=== PATIENT | male | born 1940 | race Caucasian/White ===

== ENCOUNTER 2017-09-06 11:15 | Outpatient (RCR) | payer MEDICARE ==
[2017-02-05 16:51] VITALS: BMI 24.5
--- NOTE | 2017-06-11 15:28 | PT INITIAL EVALUATION ---
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 On 02/05/17, his reports that he was admitted to the hospital in ICU for 10 days to treat severe pneumonia along with dehydration and a few other things. Following the ICU, he was transported to [place], [place] to [facility] for approximately 48 days. Then, he was discharged back to home and received home health care from April 04, 2017 to June 03, 2017. His reports that he did well in [place] and they focused on returning Ian to [facility] along with strength, balance, and gait. She reports that it is difficult for him to get in and out of bed especially if he does not bend his R LE. She also reports that she is having him sit around the dinner table for all meals. She also reports that he has been complaining of his chest hurting when swallowing. Other than that, he denies any pain. REHAB PROBLEM LIST: Impaired Cognition Decreased ROM Impaired Bed Mobility Decreased Strength Impaired Transfers Decreased Endurance Decreased Balance Decreased Function Decreased ADL's Decreased Mobility Decreased Gait PREVIOUS MEDICAL HISTORY: See chart OCCUPATION: Retired OBJECTIVE: ROM: AROM of R hip flexion, abduction, adduction, extension, R knee flexion and extension, and R ankle PF/DF: unable to move through any ROM. AROM of L side : WNL's. Strength: R hip flexion, abduction, adduction, extension, R knee flexion and extension (2/5), and R ankle PF/DF: 1/5 (felt contraction). AROM of L hip flexion, abduction, adduction, extension, L knee flexion and extension, and L ankle PF/DF: 4+/5 with no pain. Sensation: Impaired on R LE: L1-S2. WNL's on L LE (L1-S2). Special Tests: AM-PAC Medicare Outpatient Basic Mobility Form with wheel chair: 91.9% impaired. Lower extremity functional scale: : 78% impairment. Mobility: Bed mobility: Unable to perform sitting to R sidelying. Independent with sitting to L sidelying. Independent from L sidelying to supine position. Terrence X 1 from supine position to R sidelying position. MaxA X 1 from supine position to L sidelying position. Independent from L sidelying position to sitting at edge of mat. Able to sit at edge of mat without any difficulties; however, he utilizes his L UE for support. Mod-MaxA with stand pivot transfer from wheelchair to/from bench. Terrence X 1 with sit to/from standing. MaxA X 1 at R knee to prevent increased knee flexion so that he would collapse or R knee hyperextension while performing weight shifts to R LE. Sit to/from standing: Terrence to modA with sitting to standing along with L UE support and independent with standing to sitting. Gait: Unable at this point: will perform pre-gait activities and then progress his gait with forarm walker. ASSESSMENT: Ian Goetz will benefit from skilled physical therapy addressing the listed impairments to improve his function and QOL. . Short Term Goals 4 weeks: Pt will be able to perform pre-gait activities with forarm walker and modA X 1 to improve function and QOL. 8 weeks: Pt will be able to perform pre-gait activities with forarm walker and Terrence x 1 to improve function and QOL. 12 weeks: Pt will be able to perform pre-gait activities with forarm walker and Calos to improve function and QOL. 12 weeks: Pt will be able to improve AM-PAC from 92% impairment to less than 59 % impairment to improve function and QOL. 12 weeks: Pt will be able to ambulate 150 feet or more with forarm walker and CGA to improve function and QOL. Patient's Goals more independent with transfers and ambulating better with toni-walker so that they can get out of the house and enjoy [place] PLAN: Patient to be seen for Strengthening/condition Range of Motion Spinal Stabilization Work Hardening/Cond Stretching Neuromuscular Re-ed Closed Chain Program Electrical Stim Gait Trg/Balance Trg Biofeedback Home Exercise Program Therapeutic Activities 2x/Week for 4 month If you have any questions, comments, or concerns about this report or plan, please contact me at . Thank you, Rodolfo Keller, PT, DPT MTDD
--- NOTE | 2017-06-14 12:13 | SWALLOW EVALUATION ---
INITIAL SPEECH THERAPY EVALUATION REPORT Patient Name: Ian Goetz Date of Evaluation: 06-11-2017 and 06-13-2017 Patient : 1940 Clinician: Joy Mancini M.S., [facility]-PERSONNEL REPRESENTATIVE, [facility] Student Treatment Dx: Dysarthric (flaccid) Motor Speech Deficit BACKGROUND The patient is a 77 year old male who experienced a stroke on Aug 26 2015. He is wheelchair bound. He lives at home with his spouse. Mr. Goetz has severely reduced expressive verbal language. The patients primary modalities of communication are mostly indistinguishable vocalizations assisted by attempts at verbal interpretation of his intent by his . The patient does gesture yes/no with head nods but responses are inconsistent. Mr. Goetz produces primarily vowels and some consonants. LANGUAGE Receptive Language: Mr. Goetz was evaluated for receptive language through directive tasks. He responded appropriately to clinician directions and questions given adequate wait time and repetitions throughout the assessment. Patient responses were either correct response to a question (e.g., show me which icon you would point to if you needed the bathroom) or one-word vocalizations (e.g., yes). Reading is largely functional at short phrase with min assist. Expressive Language: Mr. Goetz has severely limited verbal expression. He can produce yes/no with a gesture and verbal model. He is able to indicate wants and needs through the use of a picture communication board. Mr. Goetz can write short words. Limited written communication. He identified letters with 63% accuracy and minimal to moderate clinician support. The clinician limited visual stimuli by showing only one row of letters (8 letters) at a time and gave a phonemic cue with an example (e.g., b as in boy). Speech Mr. Goetz was evaluated for speech using informal tasks. He was able to produce speech at the word level, but required maximum clinician support (e.g., phonemic cueing, multiple repetitions, and articulatory placement directions). Severe flaccid dysarthria reduces intelligible speech. The patient produces primarily vowel sounds but distorted consonant sounds can be heard in single word productions. Pt is responsive to phonetic placement cues but oral motor deficits reduce accuracy. Vowels: Mild deficits with more accuracy with long vowels over short in isolation Consonants: Largely nonfunctional in isolation. Intermittent distorted consonants in single words can be heard and assist with communication of the target. COGNITION Mr. Goetz was given a heavily modified version of the [place] Cognitive Assessment (MOCA) to compensate for severe speech and language deficits. Serial subtraction task and Language tasks were not assessed due to severe expressive language deficits. Cognitive Domains Demonstrating Deficits: attention, delayed recall, visuospatial Cognitive Domains Demonstrating Strength: immediate recall, naming, orientation , abstraction Cognitive- Linguistic deficits impact swallow function/safety, or response to therapy: No Functional Communication Deficits: The patient presents with cognitive linguistic deficits that reduce functional communication in the home and community, reducing safety and independence. Family and patient agree that the patient participation in everyday communicative tasks is limited. Response time is extended, reducing communicative effectiveness. ORAL MOTOR Mr. Goetz was given an oral motor examination. He completed all tasks with minimal to moderate clinician support (i.e., repetition of directions, wait time and model). Right labial asymmetry was present on the smile and pucker tasks, and loss of air was present on the cheek puff task. ORAL: Smile 2/5 Lip Pucker 2/5 Puff out cheeks 2/5 6/15 LINGUAL: Tongue from side to side 4/5 Stick out tongue 3/5 Make tongue touch chin 4/5 Make tongue touch nose 3/5 14/20 Overall impression: Moderate to severe oral motor deficits DYSPHAGIA: Patient had an MBS on . Pt showed s/s of oropharyngeal dysphagia. He is on a LISETH with liquids limited to small bolus size. SUMMARY All modes of functional communication are severely reduced including, written, reading, speech, gestural. Severe dysarthric (flaccid) speech with vowels and consonants reduce functional communication. Communicative strengths at this time are reading and picture identification. Patient demonstrates cognitive skills at a significantly higher level of function than communication. RECOMMENDATIONS 1. ST 2x/12wk PROGNOSIS: Good. Patient has good family support. PLAN OF CARE Short Term Goals 1. Patient will receive education regarding safe swallow precautions, diet modification, and compensatory techniques and provide demonstration of comprehension using an AAC device. 2. The patient will participate in an 8wk dysphagia exercise based therapy program to address oropharyngeal dysphagia. 3. Pt will independently identify letters on an alphabet board with 80% accuracy for functional communication. 4. Pt will initiate communication using an AAC device with familiar communication partners in 8/10 opportunities with minimal clinician support ( e.g., verbal prompt or question). [facility] Goals The patient will use safe swallow precautions and compensatory techniques to decrease incidents of aspiration. Thank you for this referral. Please call [phone] Joy Mancini M.S., CCC-PERSONNEL REPRESENTATIVE Physician Signature Date MTDD
--- NOTE | 2017-07-17 17:28 | PT PLAN OF CARE ---
Physician: Nikita Caraballo MD Patient is being seen: 2x/week Therapist:Rodolfo Keller, PT, DPT Medical Diagnosis: Post CVA Weakness Treatment Diagnosis: same Date of Onset: Date of Initial Evaluation: 06/11/17 Date patient was last seen: 07/16/17 Number of treatments: 10 Number of cancellations/No shows: 0 INTERVENTIONS: Patient to be seen for Strengthening/condition Range of Motion Spinal Stabilization Work Hardening/Cond Stretching Neuromuscular Re-ed Closed Chain Program Electrical Stim Gait Trg/Balance Trg Biofeedback Home Exercise Program Therapeutic Activities GOALS: Short Term Goals 4 weeks: Pt will be able to perform pre-gait activities with forarm walker and modA X 1 to improve function and QOL. 8 weeks: Pt will be able to perform pre-gait activities with forarm walker and Terrence x 1 to improve function and QOL. 12 weeks: Pt will be able to perform pre-gait activities with forarm walker and Calos to improve function and QOL. 12 weeks: Pt will be able to improve AM-PAC from 92% impairment to less than 59 % impairment to improve function and QOL. 12 weeks: Pt will be able to ambulate 150 feet or more with forarm walker and CGA to improve function and QOL. PATIENT'S GOAL: more independent with transfers and ambulating better with toni-walker so that they can get out of the house and enjoy [place] Status of Patient's Goals: Progressing slowly Patient Compliance: Good Prognosis: Fair Reasons for continuing therapy: This is a progress note for Ian Goetz. He denies any pain and states that he is doing well. He has progressed well with improved sit to/from standing with decreased B UE support. We were able to transition from pre-gait exercise with good midline to ambulating with and without L UE support while maintaining good midline. He continues to require moderate verbal cues to maintain midline especially with L UE support during ambulation. With gait, he continues to demonstrate a lack of R LE weightbearing which results in decreased L step length, decreased R weight shift, and decreased balance. We will continue to improve midline body position during gait , improve gait mechanics, improve balance, and continue to increase R LE weight bearing. OBJECTIVE: ROM: AROM of R hip flexion, abduction, adduction, extension, R knee flexion and extension, and R ankle PF/DF: unable to move through any ROM. AROM of L side : WNL's. Strength: R hip flexion, abduction, adduction, extension, R knee flexion and extension (2/5), and R ankle PF/DF: 1/5 (felt contraction). AROM of L hip flexion, abduction, adduction, extension, L knee flexion and extension, and L ankle PF/DF: 4+/5 with no pain. Sensation: Impaired on R LE: L1-S2. WNL's on L LE (L1-S2). Special Tests: AM-PAC Medicare Outpatient Basic Mobility Form with wheel chair: 81% impaired. Lower extremity functional scale: : 78% impairment. Mobility: Bed mobility: Unable to perform sitting to R sidelying. Independent with sitting to L sidelying. Independent from L sidelying to supine position. Terrence X 1 from supine position to R sidelying position. MaxA X 1 from supine position to L sidelying position. Independent from L sidelying position to sitting at edge of mat. Able to sit at edge of mat without any difficulties; however, he utilizes his L UE for support. Mod-MaxA with stand pivot transfer from wheelchair to/from bench. Terrence X 1 with sit to/from standing. MaxA X 1 at R knee to prevent increased knee flexion so that he would collapse or R knee hyperextension while performing weight shifts to R LE. Sit to/from standing: Terrence to modA with sitting to standing along with L UE support and independent with standing to sitting. Gait: With gait, he continues to demonstrate a lack of R LE weightbearing which results in decreased L step length, decreased R weight shift, and decreased balance. If you have any questions, comments, or concerns about this report or plan, please contact me at . Thank you, Rodolfo Keller, PT, DPT MTDD
--- NOTE | 2017-07-30 18:19 | SLP PLAN OF CARE ---
SPEECH PATHOLOGY 10th Visit Report Physician: Nikita Caraballo MD Date:07-16-17 Clinician: Joy Mancini M.S., CCC-HEAVY EQUIPMENT OPERATOR APPRENTICE Patient: Ian Goetz : 1940 The patient attends [address] at [facility] 2/wk for a total of 10 Visits. His brings him to all appointments. She reports working with the patient at home on established home program tasks to support carryover. The patient continues to appear in general good health. CURRENT GOALS 1. Pt will initiate communication using an AAC device with familiar communication partners in 8/10 opportunities with minimal clinician support (e.g., verbal prompt or question). 2. Pt will spell high frequency words with at least two syllables at 9/10 and min assist (visual field reduction). 3. The patient will participate in an 8wk dysphagia exercise based therapy program to address oropharyngeal dysphagia. 4. To address receptive language deficits, the patient will identify t/f statements using AAC at 90% and min assist (up to 2 repetitions) Goals Met 1. Patient will receive education regarding safe swallow precautions, diet modification, and compensatory techniques and provide demonstration of comprehension using an AAC device. 2. Pt will independently identify letters on an alphabet board with 80% accuracy for functional communication. SUMMARY He's making excellent progress with functional communication using low tech alternative communication modes . The patients initial letter identification given a verbal model of a target word has improved to average of 90% . Initiation continues to be addressed with patient encouraged to communicate using maps, letter boards, picture boards, gestures and any mode of communication available. He has demonstrated some improvement with initiation including making selections from multiple choice options and performing tasks with reduced step by step instruction. Spouse reports mild dysphagia symptoms persists. She is following precautionary recommendations as instructed. Dysphagia is addressed during tx with focus on respiratory support and coordination with expiratory/inspiratory muscle strength training and vocal exercises. The above POC has been modified to represent patient progress with ST. RECOMMENDATION Patient would benefit from continued ST to address above POC at 2wk12 Thank you for referring this patient to [facility], Speech- Language Pathology. Please call [phone] to contact the HEAVY EQUIPMENT OPERATOR APPRENTICE. Respectfully, Joy Mancini M.S., CCC-HEAVY EQUIPMENT OPERATOR APPRENTICE Physician Signature Date MTDD
--- NOTE | 2017-08-20 15:12 | PT PLAN OF CARE ---
Physician: Nikita Caraballo MD Patient is being seen: 2x/week Therapist: Rodolfo Keller, PT, DPT Medical Diagnosis: Post CVA Weakness Treatment Diagnosis: same Date of Onset: Date of Initial Evaluation: 06/11/17 Date patient was last seen: 08/20/17 Number of treatments: 20 Number of cancellations/No shows: 0 INTERVENTIONS: Patient to be seen for Strengthening/condition Range of Motion Spinal Stabilization Work Hardening/Cond Stretching Neuromuscular Re-ed Closed Chain Program Electrical Stim Gait Trg/Balance Trg Biofeedback Home Exercise Program Therapeutic Activities GOALS: Short Term Goals 4 weeks: Pt will be able to perform pre-gait activities with forarm walker and modA X 1 to improve function and QOL. MET 8 weeks: Pt will be able to perform pre-gait activities with forarm walker and Terrence x 1 to improve function and QOL. MET 12 weeks: Pt will be able to perform pre-gait activities with forarm walker and Calos to improve function and QOL. MET 12 weeks: Pt will be able to improve AM-PAC from 92% impairment to less than 59 % impairment to improve function and QOL. NOT MET 12 weeks: Pt will be able to ambulate 150 feet or more with forarm walker and CGA to improve function and QOL. Not Met PATIENT'S GOAL: more independent with transfers and ambulating better with toni-walker so that they can get out of the house and enjoy [place] Status of Patient's Goals: Progressing Patient Compliance: Good Prognosis: Fair Reasons for continuing therapy: This is a progress note for Ian Goetz. He denies any pain and states that he is doing well. He progressed well with pre- gait exercises that we are transitioning from pre-gait exercises to FWW with platform. With the FWW with platform, he demonstrated maxA to lift R UE into platform and supervision to Terrence during ambulation. Furthermore, he demonstrated normal step lengths, increased R LE weight bearing, increased function and decreased support, however, he demonstrated decreased endurance. Furthermore, he demonstrates CGA to Terrence with sit to/from standing transfers. With the FWW with platform, we hope to get to the point that he and his are comfortable ambulating around the house with decreased fear of falling, which I think is possible. OBJECTIVE: ROM: AROM of R hip flexion, abduction, adduction, extension, R knee flexion and extension, and R ankle PF/DF: unable to move through any ROM. AROM of L side : WNL's. Strength: R hip flexion, abduction, adduction, extension, R knee flexion and extension (2/5), and R ankle PF/DF: 1/5 (felt contraction). AROM of L hip flexion, abduction, adduction, extension, L knee flexion and extension, and L ankle PF/DF: 4+/5 with no pain. Sensation: Impaired on R LE: L1-S2. WNL's on L LE (L1-S2). Special Tests: AM-PAC Medicare Outpatient Basic Mobility Form with wheel chair: 81% impaired. Lower extremity functional scale: : 78% impairment. Mobility: Bed mobility: Unable to perform sitting to R sidelying. Independent with sitting to L sidelying. Independent from L sidelying to supine position. Terrence X 1 from supine position to R sidelying position. MaxA X 1 from supine position to L sidelying position. Independent from L sidelying position to sitting at edge of mat. Able to sit at edge of mat without any difficulties; however, he utilizes his L UE for support. Mod-MaxA with stand pivot transfer from wheelchair to/from bench. Terrence X 1 with sit to/from standing. MaxA X 1 at R knee to prevent increased knee flexion so that he would collapse or R knee hyperextension while performing weight shifts to R LE. Sit to/from standing: Terrence to modA with sitting to standing along with L UE support and independent with standing to sitting. Gait: With gait, he continues to demonstrate a lack of R LE weightbearing which results in decreased L step length, decreased R weight shift, and decreased balance. If you have any questions, comments, or concerns about this report or plan, please contact me at . Thank you, Rodolfo Keller, PT, DPT MTDBrandee
--- NOTE | 2017-09-05 11:26 | SLP PLAN OF CARE ---
SPEECH PATHOLOGY 10th Visit Report Physician: Nikita Caraballo MD Date:08-23-17 Clinician: Joy Mancini M.S., CCC-CAMERA TUNING ENGINEER Patient: Ian Goetz : 1940 The patient attends [address] at [facility] 2/wk for a total of 10 Visits. His spouse brings him to all appointments. She reports working with the patient at home on established home program tasks to support carryover. The patient continues to appear in general good health. CURRENT GOALS 1. Pt will initiate communication using an AAC device with familiar communication partners in 8/10 opportunities with minimal clinician support (e.g., verbal prompt or question). 2. Pt will spell high frequency words with at least two syllables at 9/10 and min assist (visual field reduction). 3. To address receptive language deficits, the patient will identify t/f statements using AAC at 90% and min assist (up to 2 repetitions) 4.The patient will perform voice quality exercises to improve respiratory support for speech and verbal communication. DC GOAL 1. The patient will participate in an 8wk dysphagia exercise based therapy program to address oropharyngeal dysphagia. Goal Met: Pt has completed program. His spouse continues to perform home program exercises. She reports symptoms have improved. It is recommended pt continue with nectar thickened liquids. Pt reports compliance with this recommendation is intermittent SUMMARY Pt continues to make progress with functional communication using low tech alternative communication modes . The patients initial letter identification given a verbal model of a target word is maintained at approx. 90% . He independently used communication board to communicate "Happy" in response to direct questions of how his [place] was. Initiation continues to be addressed with patient encouraged to communicate using maps, letter boards, picture boards, gestures and any mode of communication available. Pt has completed the dysphagia program. His spouse continues to perform home program exercises. She reports symptoms have improved. It is recommended pt continue with nectar thickened liquids. Pt reports compliance with this recommendation is intermittent. The above POC has been modified to represent patient progress with ST. RECOMMENDATION Patient would benefit from continued ST to address above POC at 2wk12 Thank you for referring this patient to [facility], Speech- Language Pathology. Please call [phone] to contact the CAMERA TUNING ENGINEER. Respectfully, Joy Mancini M.S., CCC-CAMERA TUNING ENGINEER Physician Signature Date MTDD
[~2017-09-06 11:15] MED LIST: AMLO2.5T75 PO; ASPI-757 FT; ASPI-757 PO; ATOR10TA24 PO; DOCU100C49 PO; ENOX40DI8 SC; FERR220S20 FT; FLUO-201 PO; Hydrogen Peroxide TP; INSU100I30 SUBQ; INSU100V24 SUBQ; IPRA3AMP21 NEB; LEVO100V IVP; LEVO25TA57 PO; METH5TAB85 PO; MOM PO; TAMS0.4C25 PO; VITA1CAP46 PO; [UNRECOGNIZED DRUG - CODE] INH
== END 2017-09-09 ==
LOC: PT 11:15
PROVIDERS: ATTEND Family Medicine
DX: I69.398 Other sequelae of cerebral infarction (principal); I69.320 Aphasia following cerebral infarction; I69.351 Hemiplegia and hemiparesis following cerebral infarction affecting right dominant side; R07.9 Chest pain, unspecified; R53.1 Weakness
CPT/HCPCS: 97163

== ENCOUNTER 2017-12-03 11:25 | Emergency (ER) | payer MEDICARE ==
[2017-02-05 16:51] VITALS: Wt 90.9 kg
[2017-12-03] MEDS ORDERED: [UNRECOGNIZED DRUG - OTHER] INFIL ONE (11:35)
[2017-12-03] MEDS ORDERED: METF-410 PO (11:39)
--- NOTE | 2017-12-03 11:40 | ER Report ---
History and Physical Time Seen By MD: 11:31 Hx. of Stated Complaint: PT WAS HAD A FALL. 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 PT HAS L SHAPED SKIN TEAR ON RIGHT HAND. HPI/ROS CHIEF COMPLAINT: Laceration to right hand HISTORY OF PRESENT ILLNESS: 69-year-old male with right-sided weakness due to old stroke presents with L-shaped flap laceration dorsum of right hand after fall from his wheelchair. His foot was off the pedal when it got caught under his chair and he pitched forward per . She thinks he may have cut the hand on a nearby walker. No known foreign body. Tetanus is up-to-date. Denies other injury or complaint. He is nonverbal and history is per . REVIEW OF SYSTEMS: Respiratory: No cough, no dyspnea. Cardiovascular: No chest pain, no palpitations. Gastrointestinal: No vomiting, no abdominal pain. Musculoskeletal: No back pain. Allergies: Coded Allergies: No Known Drug Allergies (Unverified , 12/03/17) Home Meds Reported Medications Metformin Hcl (METFORMIN HCL) 500 Mg Tablet, 1 TAB PO BID, TAB 12/03/17 Atorvastatin Calcium (LIPITOR) 10 Mg Tablet, 80 TAB PO QDAY, TAB 02/05/17 Fluoxetine Hcl (PROZAC) 10 Mg Capsule, 20 MG PO QDAY, CAPSULE 02/05/17 Docusate Sodium (STOOL SOFTENER) 100 Mg Capsule, 100 MG PO, CAPSULE 02/05/17 Tamsulosin Hcl (FLOMAX) 0.4 Mg Cap.er.24h, 0.4 MG PO, CAP 02/05/17 Amlodipine Besylate (NORVASC) 2.5 Mg Tablet, 1 TAB PO QDAY, TAB 02/05/17 Vitamin B Complex (VITAMIN B COMPLEX) 1 Each Capsule, 1 EACH PO, CAPSULE 02/05/17 Levothyroxine Sodium (SYNTHROID) 25 Mcg Tablet, 125 MCG PO QDAY 02/05/17 Aspirin (ASPIRIN) 325 Mg Tablet, 325 MG PO DAILY, TAB 02/05/17 Methylphenidate Hcl (RITALIN) 5 Mg Tablet, 5 MG PO 02/05/17 Discontinued Reported Medications Magnesium Hydroxide (MILK OF MAGNESIA) 400 Mg/5 Ml Oral.susp, 400 MG PO PRN, BOTTLE 02/05/17 Discontinued Scripts Levothyroxine Sodium (LEVOTHYROXINE SODIUM) 100 Mcg Vial, 75 MCG IVP QDAY for 30 Days, VIAL Prov:CLAUDE MCGREGOR MD 02/15/17 Ipratropium/Albuterol Sulfate (IPRAT-ALBUT 0.5-3(2.5) MG/3 ML) 3 Ml Ampul.neb, 3 ML NEB Q6HR Y for SHORTNESS OF BREATH for 30 Days, VIAL Prov:CLAUDE MCGREGOR MD 02/15/17 Insulin Lispro (HUMALOG) 100 Unit/1 Ml Vial, 3-15 UNIT SUBQ SS Y for SLIDING SCALE INSULIN for 30 Days, VIAL Prov:CLAUDE MCGREGOR MD 02/15/17 Insulin Glargine,Hum.rec.anlog (LANTUS SOLOSTAR) 100 Unit/1 Ml Insuln.pen, 25 UNIT SUBQ BID for 30 Days, VIAL Prov:CLAUDE MCGREGOR MD 02/15/17 [Hydrogen Peroxid(*) 3% 120 Ml] 120 ML SOLN No Conflict Check, 0 ML TP PRN Y for trach care for 30 Days, BOTTLE Prov:CLAUDE MCGREGOR MD 02/15/17 Ferrous Sulfate (Ferrous Sulfate) 220 Mg (44 Mg Iron)/5 Ml Elixir, 220 MG FT BIDBS for 30 Days, BOTTLE Prov:CLAUDE MCGREGOR MD 02/15/17 Enoxaparin Sodium (LOVENOX) 40 Mg/0.4 Ml Disp.syrin, 40 MG SC QDAY for 30 Days, SYR Prov:CLAUDE MCGREGOR MD 02/15/17 Aspirin (ASPIRIN) 325 Mg Tablet, 325 MG FT QDAY for 30 Days, TAB Prov:CLAUDE MCGREGOR MD 02/15/17 Acetylcysteine (ACETYLCYSTEINE) 200 Mg/1 Ml Vial, 200 MG INH BIDR for 14 Days, VIAL 1 Refill Prov:CLAUDE MCGREGOR MD 02/15/17 Hx Smoking: No Smoking Status: Never Smoker Exposure to Second Hand Smoke?: No Hx Substance Use Disorder: No Hx Alcohol Use: Yes Constitutional Vital Sign - Last 24 Hours 12/03/17 11:31 Temp 98.3 Pulse 63 Resp 14 B/P (MAP) 124/66 Pulse Ox 92 O2 Delivery Room Air Physical Exam General Appearance: The patient is alert, has no immediate need for airway protection and no signs of toxicity. No acute distress Eyes: Pupils equal and round no pallor or injection. ENT, Mouth: Mucous membranes are moist. Respiratory: There are no retractions, lungs are clear to auscultation. Cardiovascular: Regular rate and rhythm. [ ] Gastrointestinal: Abdomen is soft and non tender, no masses, bowel sounds normal. Neurological: At baseline per Skin: Warm and dry, no rashes. 4 cm L-shaped flap over right dorsum without active bleeding appear superficial Musculoskeletal: Neck is supple non tender. Extremities are nontender, nonswollen and have full range of motion. No edema DIFFERENTIAL DIAGNOSIS: After history and physical exam differential diagnosis was considered for laceration, open fracture. X-rays were obtained to exclude fracture of the right hand as well as foreign body. Medical Decision Making EKG/Imaging Imaging Images were reviewed. Radiologist report was reviewed. Results were discussed. ED Course/Re-evaluation ED Course Plan of care agreed upon. X-rays to exclude fracture or foreign body laceration repair here. Procedure Procedure: Laceration repair. Verbal consent was obtained from the patient and caregiver, . The 4 cm x 4 cm laceration on the dorsum of the right hand was anesthetized in the usual fashion 1.5 mL's of 1% lidocaine with epi was used.. The wound was scrubbed chlorhexidine, irrigated with copious saline, draped and explored to its base with a gloved finger. [ ] There were no deep structures involved. No tendon injury was identified. The wound was repaired with 4-0 Ethilon. The wound repair was simple interrupted 10 sutures placed. The procedure was performed by myself. No bleeding. No complications. Well-tolerated. Home care and suture removal in 7-10 days was discussed. All questions answered and understood. present for procedure. Decision to Disposition Date: Dec 03, 2017 Decision to Disposition Time: 13:05 Depart Departure Latest Vital Signs Vital Signs Date Time Temp Pulse Resp B/P (MAP) Pulse Ox O2 Delivery O2 Flow Rate FiO2 12/03/17 11:31 98.3 63 14 124/66 92 Room Air Impression: Primary Impression: Laceration of right hand Condition: Improved Disposition: HOME OR SELF-CARE Referrals: BERNARDA ARMSTRONG MD (PCP) Patient Instructions: Laceration (ED) LORI LENNON MD Dec 03, 2017 11:40
--- NOTE | 2017-12-03 12:13 | RADIOLOGY IMAGING REPORT ---
FACILITY: [facility] PATIENT NAME: Ian Goetz : 1940 MR: [id number] V: [id number] EXAM DATE: ORDERING PHYSICIAN: LORI LENNON TECHNOLOGIST: Location: [facility] Patient: Ian Goetz : 1940 Visit/Account:[id number] Date of Sevice: 12/03/2017 Technique: HAND COMPLETE RIGHT HISTORY: Trauma, laceration on posterior side of hand Comparison studies: None FINDINGS: There is no acute fracture. Overall, there is decreased cortical mineralization. A small ossific density seen in the dorsal to the radiocarpal joint which may represent the sequela of previo us injury. Degenerative changes are noted throughout the right hand. Calcific atherosclerotic jolley es are present. No radiodense foreign body. Subcutaneous emphysema overlies the dorsal aspect of th e hand. IMPRESSION: 1. No acute fracture or radiodense foreign body. 2. Osteopenia. Please note this limits the sensitivity for a nondisplaced fracture. 3. Degenerative and incidental findings as above. Report Dictated By: Darwin Marie DO at 12/03/2017 12:08 PM Report E-Signed By: Darwin Marie DO at 12/03/2017 12:10 PM WSN:[id number]
[2017-12-03 13:00] VITALS: BP 128/60
== END 2017-12-03 13:21 | disposition home or self-care (01) ==
LOC: ER 11:33
DX: S61.411A Laceration without foreign body of right hand, initial encounter (principal); W05.0XXA Fall from non-moving wheelchair, initial encounter
CPT/HCPCS: 99283

== ENCOUNTER 2017-12-06 11:15 | Outpatient (RCR) | payer MEDICARE ==
[2017-02-05 16:51] VITALS: BMI 24.5
--- NOTE | 2017-09-11 08:33 | PT PLAN OF CARE ---
Physician: Nikita Caraballo MD Patient is being seen: 2x/week Therapist: Rodolfo Keller, PT, DPT Medical Diagnosis: Post CVA Weakness Treatment Diagnosis: same Date of Onset: Date of Initial Evaluation: 06/11/17 Date patient was last seen: 09/10/17 Number of treatments: 25 Number of cancellations/No shows: 0 INTERVENTIONS: Patient to be seen for Strengthening/condition Range of Motion Spinal Stabilization Work Hardening/Cond Stretching Neuromuscular Re-ed Closed Chain Program Electrical Stim Gait Trg/Balance Trg Biofeedback Home Exercise Program Therapeutic Activities GOALS: Short Term Goals 4 weeks: Pt will be able to perform pre-gait activities with forarm walker and modA X 1 to improve function and QOL. MET 8 weeks: Pt will be able to perform pre-gait activities with forarm walker and Terrence x 1 to improve function and QOL. MET 12 weeks: Pt will be able to perform pre-gait activities with forarm walker and Calos to improve function and QOL. MET 12 weeks: Pt will be able to improve AM-PAC from 92% impairment to less than 59 % impairment to improve function and QOL. NOT MET 12 weeks: Pt will be able to ambulate 150 feet or more with forarm walker and CGA to improve function and QOL. Met PATIENT'S GOAL: more independent with transfers and ambulating better with toni-walker so that they can get out of the house and enjoy [place] Status of Patient's Goals: Progressing Patient Compliance: Good Prognosis: Fair Reasons for continuing therapy: This is a progress note for Ian Goetz. He denies any pain and states that he is doing well. He progressed well with pre- gait exercises that we are transitioning from pre-gait exercises to FWW with platform. With the FWW with platform, he demonstrated maxA to lift R UE into platform and supervision to Terrence during ambulation. He was able to ambulate 171 feet with platform FWW without a rest break. Furthermore, he demonstrated normal step lengths, increased R LE weight bearing, increased function and decreased support, however, he demonstrated decreased endurance, however, over the last few weeks, his endurance has significantly improved. Furthermore, he demonstrates CGA with sit to/from standing transfers. With the FWW with platform, we hope to get to the point that he and his are comfortable ambulating around the house with decreased fear of falling, which I think is possible and I think we are getting closer to that point with each passing week. OBJECTIVE: ROM: AROM of R hip flexion, abduction, adduction, extension, R knee flexion and extension, and R ankle PF/DF: unable to move through any ROM. AROM of L side : WNL's. Strength: R hip flexion, abduction, adduction, extension, R knee flexion and extension (2/5), and R ankle PF/DF: 1/5 (felt contraction). AROM of L hip flexion, abduction, adduction, extension, L knee flexion and extension, and L ankle PF/DF: 4+/5 with no pain. Sensation: Impaired on R LE: L1-S2. WNL's on L LE (L1-S2). Special Tests: -PAC Medicare Outpatient Basic Mobility Form with wheel chair: 81% impaired. Lower extremity functional scale: : 78% impairment. Mobility: Bed mobility: Unable to perform sitting to R sidelying. Independent with sitting to L sidelying. Independent from L sidelying to supine position. Terrence X 1 from supine position to R sidelying position. MaxA X 1 from supine position to L sidelying position. Independent from L sidelying position to sitting at edge of mat. Able to sit at edge of mat without any difficulties; however, he utilizes his L UE for support. Mod-MaxA with stand pivot transfer from wheelchair to/from bench. Terrence X 1 with sit to/from standing. MaxA X 1 at R knee to prevent increased knee flexion so that he would collapse or R knee hyperextension while performing weight shifts to R LE. Sit to/from standing: Terrence to modA with sitting to standing along with L UE support and independent with standing to sitting. Gait: With gait, he demonstrates improvements with R LE weightbearing which results in increased L step length, increased R weight shift, and improved balance. If you have any questions, comments, or concerns about this report or plan, please contact me at . Thank you, Rodolfo Keller, PT, DPT JASPREET
--- NOTE | 2017-10-19 14:46 | PT PLAN OF CARE ---
Physician: Nikita Caraballo MD Patient is being seen: 2x/week Therapist: Rodolfo Keller, PT, DPT Medical Diagnosis: Post CVA Weakness Treatment Diagnosis: same Date of Onset: Date of Initial Evaluation: 06/11/17 Date patient was last seen: 10/18/17 Number of treatments: 34 Number of cancellations/No shows: 0 INTERVENTIONS: Patient to be seen for Strengthening/condition Range of Motion Spinal Stabilization Work Hardening/Cond Stretching Neuromuscular Re-ed Closed Chain Program Electrical Stim Gait Trg/Balance Trg Biofeedback Home Exercise Program Therapeutic Activities GOALS: Short Term Goals 4 weeks: Pt will be able to perform pre-gait activities with forarm walker and modA X 1 to improve function and QOL. MET 8 weeks: Pt will be able to perform pre-gait activities with forarm walker and Terrence x 1 to improve function and QOL. MET 12 weeks: Pt will be able to perform pre-gait activities with forarm walker and Calos to improve function and QOL. MET 12 weeks: Pt will be able to improve AM-PAC from 92% impairment to less than 59 % impairment to improve function and QOL. NOT MET 12 weeks: Pt will be able to ambulate 150 feet or more with forarm walker and CGA to improve function and QOL. Met PATIENT'S GOAL: more independent with transfers and ambulating better with toni-walker so that they can get out of the house and enjoy [place] Status of Patient's Goals: Progressing Patient Compliance: Good Prognosis: Fair Reasons for continuing therapy: This is a progress note for Ian Goetz. He reports that he is doing well. He denies any pain. He states that he has been walking at home with the assistance of his . He continues to require CGA with sit/from standing, however, he is demonstrating more weightbearing on his R UE and R LE. He continues to require CGA assistance with ambulation, however, he requires maxA X1 for donning and doffing his R UE into the forearm walker. With gait, he has demonstrated improved B step lengths (they are currently equal ), increased B feet clearance, no LOB, decreased pelvic rotation,increased endurance with ambulation, and increased velocity. The next step would be to ensure that him and his can ambulate safely around their home since I do not believe that he will gain much more with gait and his function. OBJECTIVE: ROM: AROM of R hip flexion, abduction, adduction, extension, R knee flexion and extension, and R ankle PF/DF: unable to move through any ROM. AROM of L side : WNL's. Strength: R hip flexion, abduction, adduction, extension, R knee flexion and extension (2/5), and R ankle PF/DF: 1/5 (felt contraction). AROM of L hip flexion, abduction, adduction, extension, L knee flexion and extension, and L ankle PF/DF: 4+/5 with no pain. Sensation: Impaired on R LE: L1-S2. WNL's on L LE (L1-S2). Special Tests: -PAC Medicare Outpatient Basic Mobility Form with wheel chair: 78% impaired. Lower extremity functional scale: 20/: 75% impairment. Mobility: Bed mobility: Unable to perform sitting to R sidelying. Independent with sitting to L sidelying. Independent from L sidelying to supine position. Terrence X 1 from supine position to R sidelying position. MaxA X 1 from supine position to L sidelying position. Independent from L sidelying position to sitting at edge of mat. Able to sit at edge of mat without any difficulties; however, he utilizes his L UE for support. Mod-MaxA with stand pivot transfer from wheelchair to/from bench. Terrence X 1 with sit to/from standing. MaxA X 1 at R knee to prevent increased knee flexion so that he would collapse or R knee hyperextension while performing weight shifts to R LE. Sit to/from standing: Terrence to modA with sitting to standing along with L UE support and independent with standing to sitting. Gait: With gait, he demonstrates improvements with R LE weightbearing which results in increased L step length, increased R weight shift, and improved balance. If you have any questions, comments, or concerns about this report or plan, please contact me at . Thank you, Rodolfo Keller, PT, DPT JASPREET
--- NOTE | 2017-10-22 12:58 | SLP PLAN OF CARE ---
SPEECH PATHOLOGY 10th Visit Report Physician: Nikita Caraballo MD Date: 10-19-2017 Clinician: Joy Mancini M.S., [facility]-PACKAGE DELIVERY ROOM SERVICE RUNNER, Vikki Zheng Patient: Ian Goetz : 1940 The patient attends [address] at [facility] 2/wk and has had consistent attendance. The patients continues to bring him to his sessions. The patient appears to be in general good health. CURRENT GOALS 1. Pt will spell high frequency words using a letter board with at least two syllables at 9/10 and min assist (visual field reduction). Progressing: See summary. 2. To address receptive language deficits, the patient will identify t/f statements using AAC at 90% and min assist. Progressing: See summary. 3. The patient will use gesture to communicate 10 words/ideas with min assist. GOAL MET: See summary. MODIFIED GOALS 1. Pt will spell high frequency words using a letter board with at least two syllables at 9/10 and without visual field reduction . 2. To assist receptive language deficits, the patient will answer functional questions (e.g., wh questions, t/f questions, etc.) using his no tech AAC, speech, or gestures with 90% accuracy given min assist. 3. The patient will use gestures to communicate 12 words/ ideas with min assist. SUMMARY Pt continues to make progress with functional communication using low tech alternative communication modes and gestures. The patient spells high frequency words (e.g., [place], Summer, Altaf, home, etc.) with an average of 75 % accuracy across recent sessions. The patient has shown more independence with spelling across sessions as evidenced by less use of the visual field reduction. The patient answers t/f questions with an average of 80% accuracy across sessions. Repetitions of questions aid in comprehension. This goal will be modified to broaden the types of questions to address in treatment. The patient independently recalls gestures with an average of 82% accuracy across recent sessions. The patient learned 10 gestures over the past 10 sessions. Semantic cues aid in recall of gestures. This goal will be modified to increase gesture inventory and independence with using them. The POC has been modified to represent the patients progress in ST. RECOMMENDATION Patient would benefit from continued ST to address above POC at 2wk12 Thank you for referring this patient to [facility], Speech- Language Pathology. Please call [phone] to contact the PACKAGE DELIVERY ROOM SERVICE RUNNER. Respectfully, Joy Mancini M.S., [facility], Vikki Zheng, [facility] Physician Signature Date MTDD
--- NOTE | 2017-11-26 17:14 | SLP PLAN OF CARE ---
SPEECH PATHOLOGY 10th Visit Report Physician: Nikita Caraballo MD Date: 11-26-2017 Clinician: Joy Mancini M.S., [facility]-[employer] PHOTO INSPECTOR, Olga Lidia Avelar, [facility] Patient: Ian Goetz : 1940 The patient attended all sessions since his last progress report and is making progress with his goals. The patients continues to bring him to his sessions. The patient appears to be in general good health. CURRENT GOALS 1. Pt will spell high frequency words using a letter board with at least two syllables at 9/10 and without visual field reduction. D/C goal see modified goals and summary. 2. To assist receptive language deficits, the patient will answer functional questions (e.g., wh questions, t/f questions, etc.) using his no tech AAC, speech, or gestures with 90% accuracy given min assist. See summary. 3. The patient will use gestures to communicate 12 words/ ideas with min assist. See summary. MODIFIED GOALS 1. The patient will independently initiate a mode of communication (i.e., communication book, speech, gesture, etc.) in response to a statement or question at 95% accuracy given visuals and minimal assistance. SUMMARY The ST created a communication book with the help of the patient to provide a wider range of communication topics and options. The communication book includes pages about family, needs, emotional/physical feelings, maps, weather, and number/letter board. Pages including topics for the patients granddaughter , favorite foods, and favorite restaurants are in the process of being added to the book. Goal 1 was d/c and modified to track a larger range of communication modalities (i.e., speech, gesture, and communication book. The patient independently initiates automatic speech and some gestures, but requires visual and verbal prompts to promote initiation for switching modes when one mode (e.g. , speech) becomes difficult and unsuccessful for communication transfer. The patient answers t/f and wh questions using y/n response with 85% accuracy given min assistance. He requires more semantic, visual, and verbal cues to answer questions that require more than a y/n response. This may be due to the support that he requires to switch modes of communication. The patient uses gestures given an initial prompt, How can you show me, with 50% accuracy given min assistance (i.e., repetition of the prompt). Semantic cues continue to aid in gesture recall. RECOMMENDATION Patient would benefit from continued ST to address the modified POC above at 2wk12 Thank you for referring this patient to [facility], Speech- Language Pathology. Please call [phone] to contact the [employer]ER LINE PHOTO INSPECTOR. Respectfully, Joy Mancini M.S., [facility]-[employer] PHOTO INSPECTOR, Vikki Zheng, [facility] Physician Signature Date MTDD
--- NOTE | 2017-11-29 13:01 | PT PLAN OF CARE ---
Physician: Nikita Caraballo MD Patient is being seen: 2x/week Therapist: Rodolfo Keller, PT, DPT Medical Diagnosis: Post CVA Weakness Treatment Diagnosis: same Date of Onset: Date of Initial Evaluation: 06/11/17 Date patient was last seen: 11/29/17 Number of treatments: 44 Number of cancellations/No shows: 0 INTERVENTIONS: Patient to be seen for Strengthening/condition Range of Motion Spinal Stabilization Work Hardening/Cond Stretching Neuromuscular Re-ed Closed Chain Program Electrical Stim Gait Trg/Balance Trg Biofeedback Home Exercise Program Therapeutic Activities GOALS: Short Term Goals 4 weeks: Pt will be able to perform pre-gait activities with forarm walker and modA X 1 to improve function and QOL. MET 8 weeks: Pt will be able to perform pre-gait activities with forarm walker and Terrence x 1 to improve function and QOL. MET 12 weeks: Pt will be able to perform pre-gait activities with forarm walker and Calos to improve function and QOL. MET 12 weeks: Pt will be able to improve AM-PAC from 92% impairment to less than 59 % impairment to improve function and QOL. NOT MET 12 weeks: Pt will be able to ambulate 150 feet or more with forarm walker and CGA to improve function and QOL. Met PATIENT'S GOAL: more independent with transfers and ambulating better with toni-walker so that they can get out of the house and enjoy [place] Status of Patient's Goals: Progressing Patient Compliance: Good Prognosis: Fair Reasons for continuing therapy: This is a progress note for Ian Goetz. He reports that he is doing well. He reports that he is feeling great today. He denies any pain, lightheadedness, or dizziness. He states that he has been walking at home with the assistance of his . He continues to demonstrate improved endurance with ambulation, no assistance to CGA when transferring from sit to/from standing, increased L step length, improved posture with gait ( maintaining head upright), improved velocity, reduced assistance with gait (CGA) , and no LOB's throughout the session. Continues to require maxA X 1 with L UE. Will continue to improve endurance, gait mechanics, strength, and allow his to be more comfortable with ambulation with the FWW X 1. OBJECTIVE: ROM: AROM of R hip flexion, abduction, adduction, extension, R knee flexion and extension, and R ankle PF/DF: unable to move through any ROM. AROM of L side : WNL's. Strength: R hip flexion, abduction, adduction, extension, R knee flexion and extension (2/5), and R ankle PF/DF: 1/5 (felt contraction). AROM of L hip flexion, abduction, adduction, extension, L knee flexion and extension, and L ankle PF/DF: 4+/5 with no pain. Sensation: Impaired on R LE: L1-S2. WNL's on L LE (L1-S2). Special Tests: AM-PAC Medicare Outpatient Basic Mobility Form with wheel chair: 78% impaired. Lower extremity functional scale: : 72.5% impairment. Mobility: Bed mobility: Unable to perform sitting to R sidelying. Independent with sitting to L sidelying. Independent from L sidelying to supine position. Terrence X 1 from supine position to R sidelying position. MaxA X 1 from supine position to L sidelying position. Independent from L sidelying position to sitting at edge of mat. Able to sit at edge of mat without any difficulties; however, he utilizes his L UE for support. CGA-Terrence with stand pivot transfer from wheelchair to/from bench. no assistance to CGA X 1 with sit to/from standing. no assistance required at R knee to prevent increased knee flexion. Sit to/from standing: no assistance to CGA with sitting to standing Gait: With gait, he demonstrates improvements with R LE weightbearing which results in increased L step length, increased R weight shift, increased velocity , improved posture, and improved balance. If you have any questions, comments, or concerns about this report or plan, please contact me at . Thank you, Rodolfo Keller, PT, DPT MTDD
[~2017-12-06 11:15] MED LIST changes: +METF-410 PO
== END 2017-12-09 ==
LOC: PT 11:15
PROVIDERS: ATTEND Family Medicine
DX: I69.398 Other sequelae of cerebral infarction (principal); I69.320 Aphasia following cerebral infarction; I69.351 Hemiplegia and hemiparesis following cerebral infarction affecting right dominant side; R07.9 Chest pain, unspecified; R53.1 Weakness

== ENCOUNTER 2018-03-07 11:15 | Outpatient (RCR) | payer MEDICARE ==
[2017-02-05 16:51] VITALS: BMI 24.5
--- NOTE | 2017-12-11 08:59 | PT PLAN OF CARE ---
Physician: Nikita Caraballo MD Patient is being seen: 2x/week Therapist: Rodolfo Keller, PT, DPT Medical Diagnosis: Post CVA Weakness Treatment Diagnosis: same Date of Onset: Date of Initial Evaluation: 06/11/17 Date patient was last seen: 12/10/17 Number of treatments: 46 Number of cancellations/No shows: 2 INTERVENTIONS: Patient to be seen for Strengthening/condition Range of Motion Spinal Stabilization Work Hardening/Cond Stretching Neuromuscular Re-ed Closed Chain Program Electrical Stim Gait Trg/Balance Trg Biofeedback Home Exercise Program Therapeutic Activities GOALS: Short Term Goals 4 weeks: Pt will be able to perform pre-gait activities with forarm walker and modA X 1 to improve function and QOL. MET 8 weeks: Pt will be able to perform pre-gait activities with forarm walker and Terrence x 1 to improve function and QOL. MET 12 weeks: Pt will be able to perform pre-gait activities with forarm walker and Calos to improve function and QOL. MET 12 weeks: Pt will be able to improve AM-PAC from 92% impairment to less than 59 % impairment to improve function and QOL. NOT MET 12 weeks: Pt will be able to ambulate 150 feet or more with forarm walker and CGA to improve function and QOL. Met PATIENT'S GOAL: more independent with transfers and ambulating better with toni-walker so that they can get out of the house and enjoy [place] Status of Patient's Goals: Progressing Patient Compliance: Good Prognosis: Fair Reasons for continuing therapy: This is a progress note for Ian Goetz. He reports that he is doing well. He reports that he is feeling great today. He denies any pain, lightheadedness, or dizziness. He states that he has been walking at home with the assistance of his . He continues to demonstrate improved endurance with ambulation, no assistance to CGA when transferring from sit to/from standing, increased L step length, improved posture with gait ( maintaining head upright), improved velocity, reduced assistance with gait (CGA) , and no LOB's throughout the session. Continues to require maxA X 1 with L UE. Will continue to improve endurance, gait mechanics, strength, and allow his to be more comfortable with ambulation with the FWW X 1. OBJECTIVE: ROM: AROM of R hip flexion, abduction, adduction, extension, R knee flexion and extension, and R ankle PF/DF: unable to move through any ROM. AROM of L side : WNL's. Strength: R hip flexion, abduction, adduction, extension, R knee flexion and extension (2/5), and R ankle PF/DF: 1/5 (felt contraction). AROM of L hip flexion, abduction, adduction, extension, L knee flexion and extension, and L ankle PF/DF: 4+/5 with no pain. Sensation: Impaired on R LE: L1-S2. WNL's on L LE (L1-S2). Special Tests: AM-PAC Medicare Outpatient Basic Mobility Form with wheel chair: 78% impaired. Lower extremity functional scale: : 72.5% impairment. Mobility: Bed mobility: Unable to perform sitting to R sidelying. Independent with sitting to L sidelying. Independent from L sidelying to supine position. Terrence X 1 from supine position to R sidelying position. MaxA X 1 from supine position to L sidelying position. Independent from L sidelying position to sitting at edge of mat. Able to sit at edge of mat without any difficulties; however, he utilizes his L UE for support. CGA-Terrence with stand pivot transfer from wheelchair to/from bench. no assistance to CGA X 1 with sit to/from standing. no assistance required at R knee to prevent increased knee flexion. Sit to/from standing: no assistance to CGA with sitting to standing Gait: With gait, he demonstrates improvements with R LE weightbearing which results in increased L step length, increased R weight shift, increased velocity , improved posture, and improved balance. If you have any questions, comments, or concerns about this report or plan, please contact me at . Thank you, Rodolfo Keller, PT, DPT MTDD
--- NOTE | 2017-12-14 09:53 | SLP PLAN OF CARE ---
SPEECH PATHOLOGY 10th Visit Report Physician: Nikita Caraballo MD Date: 12-14-2017 Clinician: Joy Mancini M.S., CCC-HAND SILVERING SUPERVISOR Patient: Ian Geotz : 1940 The patient attended all sessions since his last progress report and is making progress with his goals. The patients continues to bring him to his sessions. The patient appears to be in general good health. He had a recent fall from his wheelchair while moving down a ramp at [facility]. He was treated at the ER for R hand laceration. CURRENT GOALS 1. To assist receptive language deficits, the patient will answer functional questions (e.g., wh questions, t/f questions, etc.) using his no tech AAC, speech, or gestures with 90% accuracy given min assist. See summary. 2. The patient will use gestures to communicate 15 words/ ideas with min assist. See summary. 3. The patient will independently initiate a mode of communication (i.e., communication book, speech, gesture, etc.) in response to a statement or question at 95% accuracy given visuals and minimal assistance. SUMMARY Goals have been modified to reflect pt progression. The ST created a communication book with the help of the patient to provide a wider range of communication topics and options. The communication book includes pages about family, needs, emotional/physical feelings, maps, weather, and number/letter board. Pages including topics for the patients granddaughter, favorite foods, and favorite restaurants are in the process of being added to the book. Goal 1 was d/c and modified to track a larger range of communication modalities (i.e., speech, gesture, and communication book. The patient independently initiates automatic speech and some gestures, but requires visual and verbal prompts to promote initiation for switching modes when one mode (e.g., speech) becomes difficult and unsuccessful for communication transfer. The patient answers t/f and wh questions using y/n response with 85% accuracy given min assistance. He requires more semantic, visual, and verbal cues to answer questions that require more than a y/n response. This may be due to the support that he requires to switch modes of communication. The patient uses gestures given an initial prompt. RECOMMENDATION Patient would benefit from continued ST to address the modified POC above at 2wk12 Thank you for referring this patient to [facility], Speech- Language Pathology. Please call [phone] to contact the HAND SILVERING SUPERVISOR. Respectfully, Joy Mancini M.S., [facility]-HAND SILVERING SUPERVISOR Physician Signature Date MTDD
--- NOTE | 2018-01-14 15:00 | SLP PLAN OF CARE ---
SPEECH PATHOLOGY PROGRESS REPORT Progress Note Date: 01-14-18 Clinician: Joy Mancini M.S., [facility]-SUSTAINABILITY PROJECT MANAGER, Pia Nicolas BA, G[facility] Patient: Ian Goetz : 1940 The patient has been attending ST at [facility] 2/wk since 12-14-17. He attends scheduled visits regularly and his spouse transports him to therapy and other appointments. Pt is a multi-modal communicator with assistance. CURRENT POC The patient has been working on the following short term goals: 1. The patient will independently initiate a mode of communication (i.e., communication book, speech, gesture, etc.) in response to a statement or question at 95% accuracy given visuals and minimal assistance. 2. To assist receptive language deficits, the patient will answer functional questions (e.g., wh questions, t/f questions, etc.) using his no tech AAC, speech, or gestures with 90% accuracy given min assist. 3. The patient will use gestures to communicate 12 words/ ideas with min assist. GOALS MET Goal 1: The patient is progressing toward reaching his goal. He is initiating a mode of communication with 90% accuracy with min assist. Goal 2: The patient is progressing toward reaching his goal. He is answering functional questions through multi-modal communication with mod assist and 90% accuracy. Goal is repetitive to goal 1 and will be DC. Goal 3: Goal Met/DC Goal: The patient is able to communicate 22 words/ideas through gesture meeting his goal of 12 gestures. NEW GOALS 1. The patient will initiate a mode of communication (i.e., communication book, speech, gesture, etc.) in response to a statement or to answer functional questions with 95% accuracy given min assist. 2. The patient will increase overall intelligibility through accurate articulation and increased loudness. Pt will produce accurate articulation and appropriate vocal loudness x15 per session with mod verbal/visual assist. 3. Pt will utilize 40 gestures to communicate words/ideas with min assist. SUMMARY The patient is utilizing multiple modes of communication to express wants and needs and to answer functional questions. He has begun using combinations of gesture, speech and low tech AAC with min to mod clinician assist. The patient responds well to visual articulation models for speech sound productions and has increased his overall intelligibility. The patient continues to work on increasing vocal loudness through breath support and prompting. The patient is developing increased independence when utilizing his low tech AAC communication book and requires mod assist navigating between pages. Since the patient has marked success communicating through gestures, 10 new gestures have been introduced in combination with speech. Non-speech therapy providers have reported an increase in communication attempts over the past several weeks. RECOMMENDATION In response to the patients progress, it is recommended ST continue at 2wk12 to address above POC Thank you for referring this patient to [facility], Speech- Language Pathology. Please call [phone] to contact the SUSTAINABILITY PROJECT MANAGER. PROGNOSIS: Very Good. Pt is progressing toward his goals and has strong family support. Thank you for this referral. Please call [phone] to contact . Joy Mancini M.S., CCC-SUSTAINABILITY PROJECT MANAGER [facility] Certified [facility] Certified Physician Signature Date MTDD
--- NOTE | 2018-01-14 17:58 | PT PLAN OF CARE ---
Physician: Nikita Caraballo MD Patient is being seen: 2x/week Therapist: Rodolfo Keller, PT, DPT Treatment Diagnosis: same Date of Onset: Date of Initial Evaluation: 06/11/17 Date patient was last seen: 01/14/18 Number of treatments: 55 Number of cancellations/No shows: 0 INTERVENTIONS: Patient to be seen for Strengthening/condition Range of Motion Spinal Stabilization Work Hardening/Cond Stretching Neuromuscular Re-ed Closed Chain Program Electrical Stim Gait Trg/Balance Trg Biofeedback Home Exercise Program Therapeutic Activities GOALS: Short Term Goals 4 weeks: Pt will be able to perform pre-gait activities with forarm walker and modA X 1 to improve function and QOL. MET 8 weeks: Pt will be able to perform pre-gait activities with forarm walker and Terrence x 1 to improve function and QOL. MET 12 weeks: Pt will be able to perform pre-gait activities with forarm walker and Calos to improve function and QOL. MET 12 weeks: Pt will be able to improve AM-PAC from 92% impairment to less than 59 % impairment to improve function and QOL. NOT MET 12 weeks: Pt will be able to ambulate 150 feet or more with forarm walker and CGA to improve function and QOL. Met PATIENT'S GOAL: more independent with transfers and ambulating better with toni-walker so that they can get out of the house and enjoy [place] Status of Patient's Goals: Progressing Patient Compliance: Good Prognosis: Fair Reasons for continuing therapy: This is a progress note for Ian Goetz. He reports that he is doing well. He reports that he is feeling great today. He denies any pain, lightheadedness, or dizziness. He reports that he is doing well. He denies any pain. His reports that he is starting to no put pressure or weight through his R LE, which makes it difficulty to get out of bed along with transfers. She also reports that his spasticity is bad in the morning and often he cannot bend his knee to get out of bed safely. She also reports that he has been walking at home with her without any falls. She and he reports that he has not had a fall in a while. She also reports that his blood sugar is being controlled better and feels like he is interacting more and his personality is starting to return. He continues to demonstrate improvements with endurance during ambulation as he can ambulate further and further with less and less rest breaks. He also demonstrates improvements with gait mechanics and currently requires CGA. Continues to require maxA X 1 with L UE. He also demonstrates significant improvements with sit to/from standing transfers and can perform them independently. Will continue to improve endurance , gait mechanics, strength, and allow his to be more comfortable with ambulation with the FWW X 1. We would like to continue 2x/week x 12 weeks to address listed impairments and to met his goals above. Lastly, we would like to receive an order for new custom bracing on his R LE as his current brace is too small. OBJECTIVE: ROM: AROM of R hip flexion, abduction, adduction, extension, R knee flexion and extension, and R ankle PF/DF: unable to move through any ROM. AROM of L side : WNL's. Strength: R hip flexion, abduction, adduction, extension, R knee flexion and extension (2/5), and R ankle PF/DF: 1/5 (felt contraction). AROM of L hip flexion, abduction, adduction, extension, L knee flexion and extension, and L ankle PF/DF: 4+/5 with no pain. Sensation: Impaired on R LE: L1-S2. WNL's on L LE (L1-S2). Special Tests: -PAC Medicare Outpatient Basic Mobility Form with wheel chair: 76% impaired. Lower extremity functional scale: 24/80: 70% impairment. Mobility: Bed mobility: Unable to perform sitting to R sidelying. Independent with sitting to L sidelying. Independent from L sidelying to supine position. Terrence X 1 from supine position to R sidelying position. MaxA X 1 from supine position to L sidelying position. Independent from L sidelying position to sitting at edge of mat. Able to sit at edge of mat without any difficulties; however, he utilizes his L UE for support. CGA-Terrence with stand pivot transfer from wheelchair to/from bench. no assistance with sit to/from standing. no assistance required at R knee to prevent increased knee flexion. Sit to/from standing: no assistance with sitting to standing Gait: With gait, he demonstrates improvements with R LE weightbearing which results in increased L step length, increased R weight shift, increased velocity , improved posture, and improved balance. If you have any questions, comments, or concerns about this report or plan, please contact me at . Thank you, Rodolfo Keller, PT, DPT DILIPD
--- NOTE | 2018-02-14 17:25 | PT PLAN OF CARE ---
Physician: Nikita Caraballo MD Patient is being seen: 2x/week Therapist: Rodolfo Keller, PT, DPT Medical Diagnosis: Post CVA Weakness Treatment Diagnosis: same Date of Onset: Date of Initial Evaluation: 06/11/17 Date patient was last seen: 02/14/18 Number of treatments: 65 Number of cancellations/No shows: 0 INTERVENTIONS: Patient to be seen for Strengthening/condition Range of Motion Spinal Stabilization Work Hardening/Cond Stretching Neuromuscular Re-ed Closed Chain Program Electrical Stim Gait Trg/Balance Trg Biofeedback Home Exercise Program Therapeutic Activities GOALS: Short Term Goals 4 weeks: Pt will be able to perform pre-gait activities with forarm walker and modA X 1 to improve function and QOL. MET 8 weeks: Pt will be able to perform pre-gait activities with forarm walker and Terrence x 1 to improve function and QOL. MET 12 weeks: Pt will be able to perform pre-gait activities with forarm walker and Calos to improve function and QOL. MET 12 weeks: Pt will be able to improve AM-PAC from 92% impairment to less than 49 % impairment to improve function and QOL. NOT MET 12 weeks: Pt will be able to ambulate 150 feet or more with forarm walker and CGA to improve function and QOL. Met PATIENT'S GOAL: more independent with transfers and ambulating better with toni-walker so that they can get out of the house and enjoy [place] Status of Patient's Goals: Progressing Patient Compliance: Good Prognosis: Fair Reasons for continuing therapy: This is a progress note for Ian Goetz. He reports that he is doing well. He denies any pain. His reports that his blood sugar is doing well and states that it is currently around 115 to 130. She also reports that she has noticed increased R UE and R LE swelling over the last few days. She reports that they met with the prosthesis last week and will hopefully get a new brace that will make him even more functional with standing , sitting, walking, and getting around. He demonstrates significant improvements with sit to/from standing as he is able to complete 5 sit to/from standing with CGA in 30 seconds. Furthermore, he demonstrates improvements with reduced support required with ambulation (CGA) and increased velocity as he is able to complete one lap (171 feet) in 6 minutes and 30 seconds. He also has demonstrate significant improvements with sitting to supine transfer independent and Terrence X 1 with supine to sitting transfer, which is a significant improvement. Furthermore, he demonstrates muscle contraction on his R quad, hamstring, adductors, abductors, and extensors of the hips, which is a significant improvement and promising for improvements in functional activity. However, he continues to have zero muscle contractions with gastroc/soleus/ anterior tibialis. We would like to continue PT to continue to improve strength , gait mechanics, transfers, and develop a smooth transition from old brace to new brace to return him closer to full function. OBJECTIVE: ROM: AROM of R hip flexion, abduction, adduction, extension, R knee flexion and extension, and R ankle PF/DF: unable to move through any ROM. AROM of L side : WNL's. Strength: R hip flexion, abduction, adduction, extension, R knee flexion and extension (2/5), and R ankle PF/DF: 1/5 (felt contraction). AROM of L hip flexion, abduction, adduction, extension, L knee flexion and extension, and L ankle PF/DF: 4+/5 with no pain. Sensation: Impaired on R LE: L1-S2. WNL's on L LE (L1-S2). Special Tests: -PAC Medicare Outpatient Basic Mobility Form with wheel chair: 76% impaired. Lower extremity functional scale: 24/80: 70% impairment. Mobility: Bed mobility: Sitting to R sidelying Independent. Independent with sitting to L sidelying. Independent from L sidelying to supine position. Independent from supine position to R sidelying position. Independent from supine position to L sidelying position. Independent from L sidelying position to sitting at edge of mat. Able to sit at edge of mat without any difficulties. CGA-Terrence with stand pivot transfer from wheelchair to/from bench. no assistance with sit to/from standing. no assistance required at R knee to prevent increased knee flexion. Sit to/from standing: no assistance with sitting to standing Gait: With gait, he demonstrates improvements with R LE weightbearing which results in increased L step length, increased R weight shift, increased velocity , improved posture, and improved balance. If you have any questions, comments, or concerns about this report or plan, please contact me at . Thank you, Rodolfo Keller, PT, DPT MTDD
--- NOTE | 2018-02-18 15:31 | SLP PLAN OF CARE ---
SPEECH PATHOLOGY PROGRESS REPORT Progress Note Date: 02-18-18 Clinician: Samira Gomez M.S., [facility]-LEADED GLASS INSTALLER, Pia Nicolas BA, [facility] Patient: Ian Goetz : 1940 The patient has been attending ST at [facility] 2/wk since 12-14-17. He attends scheduled visits regularly and his spouse transports him to therapy and other appointments. Pt is a multi-modal communicator with assistance. Pt appears in general good health and has been reporting a decrease in leg pain over the past few weeks. CURRENT POC The patient has been working on the following short term goals: 1. The patient will initiate a mode of communication (i.e., communication book , speech, gesture, etc.) in response to a statement or to answer functional questions with 95% accuracy given min assist. 02/18/18 The Pt is progressing toward reaching his goal. He is initiating a mode of communication in response to statements or to answer questions with 90% accuracy with min/mod assist. 2. The patient will increase overall intelligibility through accurate articulation and increased loudness. Pt will produce accurate articulation and appropriate vocal loudness x15 per session with mod verbal/visual assist. 02/18/18 MET. Pt has been demonstrating appropriate articulation and vocal loudness with 15 words per session. Pt will work to increase appropriate articulation to 30 words per session. 3. Pt will utilize 40 gestures to communicate words/ideas with min assist. 02/18/18 Pt is progressing toward reaching his goal. Pt can utilize 28 gestures to communicate words/ideas with min/mod assist. UPDATED POC Goal 2 will be updated to reflect an increase in the number of accurately articulated words per session at the word and phrase level. 2. The patient will increase overall intelligibility through accurate articulation and increased loudness. Pt will produce accurate articulation and appropriate vocal loudness x30 per session with mod verbal/visual assist in words and phrases. SUMMARY The patient is utilizing multiple modes of communication to express wants and needs and to answer functional questions. He has begun using combinations of gesture, speech and low tech AAC with min to mod clinician assist. The patient responds well to visual/verbal articulation models for speech sound productions and has increased his overall intelligibility. The patient is beginning to put 2 accurately articulated words together. The patient continues to work on increasing vocal loudness through breath support and prompting. The patient is developing increased independence when utilizing his low tech AAC communication book and requires mod assist navigating between pages. RECOMMENDATION In response to the patients progress, it is recommended ST continue at 2wk12 to address above POC Thank you for referring this patient to [facility], Speech- Language Pathology. Please call [phone] to contact the LEADED GLASS INSTALLER. PROGNOSIS: Very Good. Pt is progressing toward his goals and has strong family support. Thank you for this referral. Please call [phone] to contact . Samira Gomez M.S., [facility]-LEADED GLASS INSTALLER Physician Signature Date [*] MTDD
[~2018-03-07 11:15] MED LIST changes: -METF-410 PO; +METF-411 PO
== END 2018-03-10 ==
LOC: PT 11:15
PROVIDERS: ATTEND Family Medicine
DX: I69.398 Other sequelae of cerebral infarction (principal); I69.320 Aphasia following cerebral infarction; I69.351 Hemiplegia and hemiparesis following cerebral infarction affecting right dominant side; R07.9 Chest pain, unspecified; R53.1 Weakness

== ENCOUNTER 2018-05-12 15:13 | Observation (INO) | payer MEDICARE ==
[2017-02-05 16:51] VITALS: Wt 90.7 kg
[~2018-05-12 15:13] MED LIST changes: +IPRA3AMP10 NEB; -IPRA3AMP21 NEB; -METF-411 PO; +METF-450 PO
--- NOTE | 2018-05-12 15:16 | ER Report ---
History and Physical Time Seen By MD: 15:17 HPI/ROS This is a 77-year-old male with chronic right sided upper and lower extremity deficits secondary to a stroke as well as speech deficits. His was helping him transfer yesterday using a walker when he fell from it standing position onto his buttocks. He now complains of back pain. No new focal neuro deficits. No head trauma, and no loss of consciousness. He is baseline incontinent of uri ne and stool. His family states that he can normally they're all of his weight onto his left leg to assist with transfers. However since the fall he has been unable to bear weight due to back pain. Remainder of the 14 system rev: Yes Allergies: Coded Allergies: No Known Drug Allergies (Unverified , 12/03/17) Home Meds Reported Medications Pioglitazone Hcl (PIOGLITAZONE HCL) 15 Mg Tablet, 15 MG PO QDAY 05/12/18 Glimepiride (GLIMEPIRIDE) 4 Mg Tablet, 4 MG PO QDAY 05/12/18 Atorvastatin Calcium (LIPITOR) 10 Mg Tablet, 80 TAB PO QDAY, TAB 02/05/17 Fluoxetine Hcl (PROZAC) 10 Mg Capsule, 20 MG PO QDAY, CAPSULE 02/05/17 Docusate Sodium (STOOL SOFTENER) 100 Mg Capsule, 100 MG PO, CAPSULE 02/05/17 Tamsulosin Hcl (FLOMAX) 0.4 Mg Cap.er.24h, 0.4 MG PO, CAP 02/05/17 Amlodipine Besylate (NORVASC) 2.5 Mg Tablet, 1 TAB PO QDAY, TAB 02/05/17 Vitamin B Complex (VITAMIN B COMPLEX) 1 Each Capsule, 1 EACH PO, CAPSULE 02/05/17 Levothyroxine Sodium (SYNTHROID) 25 Mcg Tablet, 125 MCG PO QDAY 02/05/17 Aspirin (ASPIRIN) 325 Mg Tablet, 325 MG PO DAILY, TAB 02/05/17 Methylphenidate Hcl (RITALIN) 5 Mg Tablet, 5 MG PO 02/05/17 Discontinued Reported Medications Metformin Hcl (METFORMIN HCL) 500 Mg Tablet, 1 TAB PO BID, TAB 12/03/17 Reviewed Nurses Notes: Yes Old Medical Records Reviewed: Yes Hx Smoking: No Smoking Status: Never Smoker Exposure to Second Hand Smoke?: No Hx Substance Use Disorder: No Hx Alcohol Use: Yes Constitutional Vital Sign - Last 24 Hours 05/12/18 05/12/18 05/12/18 05/12/18 15:19 15:30 15:45 16:00 Temp 99.7 Pulse 74 76 72 Resp 16 22 15 21 B/P (MAP) 149/91 148/73 (98) 151/79 (103) Pulse Ox 92 89 90 92 O2 Delivery Room Air 05/12/18 05/12/18 05/12/18 05/12/18 16:15 16:30 17:00 17:15 Pulse 71 71 Resp 16 15 15 B/P (MAP) 136/70 (92) 143/78 (99) Pulse Ox 91 91 92 05/12/18 05/12/18 05/12/18 17:30 17:45 18:00 Pulse 72 Resp 17 15 15 B/P (MAP) 140/76 (97) 141/80 (100) Pulse Ox 92 92 90 Physical Exam General Appearance: The patient is alert, has no immediate need for airway protection and no current signs of toxicity. Eyes: Pupils equal and round Respiratory: Chest is non tender, lungs are clear to auscultation. Cardiac: regular rate and rhythm Gastrointestinal: Abdomen is soft and non tender, no masses, bowel sounds no rmal. Musculoskeletal: TTP of T10-L4 Neck: Neck is supple and non tender. Neuro: At baseline DIFFERENTIAL DIAGNOSIS: After history and physical exam differential diagnosis was considered for spinal fractures, intra-abdominal trauma, chest trauma, intracranial hemorrhage Medical Decision Making Data Points Result Diagram: 05/12/18 1612 05/12/18 1612 Laboratory Hematology Test 05/12/18 16:12 Red Blood Count 4.48 M/uL (4.00-5.60) Mean Corpuscular Volume 93.3 fL (80.0-96.0) Mean Corpuscular Hemoglobin 32.1 pg (26.0-33.0) Mean Corpuscular Hemoglobin Concent 34.4 g/dL (32.0-36.0) Red Cell Distribution Width 14.1 % (11.5-14.5) Mean Platelet Volume 8.6 fL (7.2-11.1) Neutrophils (%) (Auto) 81.1 % (39.4-72.5) Lymphocytes (%) (Auto) 9.3 % (17.6-49.6) Monocytes (%) (Auto) 8.7 % (4.1-12.4) Eosinophils (%) (Auto) 0.6 % (0.4-6.7) Basophils (%) (Auto) 0.3 % (0.3-1.4) Nucleated RBC Relative Count (auto) 0.0 /100WBC Neutrophils # (Auto) 6.5 K/uL (2.0-7.4) Lymphocytes # (Auto) 0.7 K/uL (1.3-3.6) Monocytes # (Auto) 0.7 K/uL (0.3-1.0) Eosinophils # (Auto) 0.1 K/uL (0.0-0.5) Basophils # (Auto) 0.0 K/uL (0.0-0.1) Nucleated RBC Absolute Count (auto) 0.00 K/uL Sodium Level 138 mmol/L (137-145) Potassium Level 4.2 mmol/L (3.5-5.0) Chloride Level 103 mmol/L (98-107) Carbon Dioxide Level 25 mmol/L (22-30) Blood Urea Nitrogen 17 mg/dl (9-21) Creatinine 0.90 mg/dl (0.66-1.25) Glomerular Filtration Rate Calc > 60.0 Random Glucose 179 mg/dl (75-110) Calcium Level 8.9 mg/dl (8.4-10.2) Total Bilirubin 0.3 mg/dl (0.2-1.3) Aspartate Amino Transf (AST/SGOT) 19 U/L (0-35) Alanine Aminotransferase (ALT/SGPT) 31 U/L (0-56) Alkaline Phosphatase 48 U/L (0-126) Total Protein 7.0 g/dl (6.3-8.2) Albumin 3.9 g/dl (3.5-5.0) Chemistry Test 05/12/18 16:12 White Blood Count 8.0 k/uL (4.5-11.0) Red Blood Count 4.48 M/uL (4.00-5.60) Hemoglobin 14.4 g/dL (14.0-18.0) Hematocrit 41.8 % (42.0-52.0) Mean Corpuscular Volume 93.3 fL (80.0-96.0) Mean Corpuscular Hemoglobin 32.1 pg (26.0-33.0) Mean Corpuscular Hemoglobin Concent 34.4 g/dL (32.0-36.0) Red Cell Distribution Width 14.1 % (11.5-14.5) Platelet Count 196 K/uL (150-450) Mean Platelet Volume 8.6 fL (7.2-11.1) Neutrophils (%) (Auto) 81.1 % (39.4-72.5) Lymphocytes (%) (Auto) 9.3 % (17.6-49.6) Monocytes (%) (Auto) 8.7 % (4.1-12.4) Eosinophils (%) (Auto) 0.6 % (0.4-6.7) Basophils (%) (Auto) 0.3 % (0.3-1.4) Nucleated RBC Relative Count (auto) 0.0 /100WBC Neutrophils # (Auto) 6.5 K/uL (2.0-7.4) Lymphocytes # (Auto) 0.7 K/uL (1.3-3.6) Monocytes # (Auto) 0.7 K/uL (0.3-1.0) Eosinophils # (Auto) 0.1 K/uL (0.0-0.5) Basophils # (Auto) 0.0 K/uL (0.0-0.1) Nucleated RBC Absolute Count (auto) 0.00 K/uL Glomerular Filtration Rate Calc > 60.0 Calcium Level 8.9 mg/dl (8.4-10.2) Total Bilirubin 0.3 mg/dl (0.2-1.3) Aspartate Amino Transf (AST/SGOT) 19 U/L (0-35) Alanine Aminotransferase (ALT/SGPT) 31 U/L (0-56) Alkaline Phosphatase 48 U/L (0-126) Total Protein 7.0 g/dl (6.3-8.2) Albumin 3.9 g/dl (3.5-5.0) ED Course/Re-evaluation ED Course After examining the patient and reviewing the CT scans as well as the formal radiology interpretation, I think the L-spine compression fracture is actually acute. It is the exact point where he has pain. It is painful both lying down, and extremely painful when going from a supine to a seated position at the lumbar spine. He has no new neuro deficits. I spoke with the family at length about pain control and hospital admission. There is concerned that if he goes home with narcotics, then he'll his will be unable to help with transfers and he will also be at risk for falling again. If he is not on pain medication, I do not think he will be able to transfer due to the pain. I think he would be nefit from an overnight stay in the hospital with pain control, and can be seen by physical therapy to discuss further options tomorrow. Decision to Disposition Date: May 12, 2018 Decision to Disposition Time: 18:42 Depart Departure Latest Vital Signs Vital Signs Date Time Temp Pulse Resp B/P (MAP) Pulse Ox O2 Delivery O2 Flow Rate FiO2 05/12/18 18:00 15 141/80 (100) 90 05/12/18 17:45 72 05/12/18 15:19 99.7 Room Air Impression: Primary Impression: Compression fracture Condition: Improved Disposition: Admitted from ER Referrals: BERNARDA ARMSTRONG MD (PCP) MANISHA BELLE MD May 12, 2018 15:16
[2018-05-12] MEDS ORDERED: PIOG15TA67 PO (15:26)
[2018-05-12] MEDS ORDERED: GLIM4TAB50 PO (15:26)
[2018-05-12 16:18] LABS: PLATELET COUNT, AUTOMATED 196 K/uL (150-450)
[2018-05-12] MEDS ORDERED: IOPAMIDOL 76% 100 ML INFUS BTL 100 ML ONE (16:43)
--- NOTE | 2018-05-12 17:51 | RADIOLOGY IMAGING REPORT ---
FACILITY: [facility] PATIENT NAME: Ian Goetz : 1940 MR: [id number] V: [id number] EXAM DATE: ORDERING PHYSICIAN: MANISHA BELLE TECHNOLOGIST: Location: [facility] Patient: Ian Goetz : 1940 Visit/Account:[id number] Date of Sevice: 05/12/2018 Examination: CT chest, abdomen, and pelvis with contrast followed by CT thoracic and lumbar spine. Comparison: None. History: ground level elderly fall Procedure: Multiplanar contrast-enhanced imaging of the chest, abdomen, and pelvis with 95 mL intrave nous Isovue [address] of the thoracic and lumbar spine. One of the following dos e optimization techniques was utilized in the performance of this exam: Automated exposure control; a djustment of the mA and/or kV according to the patient's size; or use of an iterative reconstruction technique. Specific details can be referenced in the facility's radiology CT exam operational polic y. Findings: CT chest: Mediastinum: Cardiac chamber size is normal. No pericardial effusion. Advanced coronary calcification s. Main pulmonary artery size is normal. No thoracic aortic aneurysm or dissection. No mediastinal he morrhage. No thoracic lymph enlargement. Lungs and pleura: No consolidation, nodule, or peribronchial inflammation. No pneumothorax, edema, or effusion. Airways: Negative. Diaphragm: Intact. CT abdomen and pelvis: Liver: Negative Gallbladder and biliary system: Tiny calcified gallstones. No pericholecystic inflammation. No bile d uct dilation. Spleen: Negative Pancreas: Negative Adrenal glands: Negative Kidneys and urinary bladder: Right kidney upper pole 1.4 x 1.0 x 1.0 cm nonobstructing stone. Right k idney mid pole 8 mm nonobstructing stone. Right kidney lower pole 4 mm nonobstructing stone. Distal r ight ureter 1.3 x 0.6 x 0.6 cm nonobstructing stone. There is a single punctate nonobstructing stone in the left kidney upper pole. No radiopaque ureteral stone or hydronephrosis in the left. The urinar y bladder is markedly abnormal with irregular trabecular thickening and multiple bladder diverticula. Vessels: Aortoiliac advanced atherosclerosis. No aneurysm. Portal venous system and IVC are unremarka ble. Bowel and mesentery: Stomach and small bowel are within normal limits. The appendix is not visualized but there is no pericecal inflammation moderate amount of stool in the colon. There are a few sigmoi d diverticula. No bowel or mesenteric inflammation. Pelvic organs: Heterogeneously enlarged prostate with mild mass effect on the bladder floor. Free air/free fluid: None Lymph nodes: Negative Abdominal wall and subcutaneous tissues: Small fat-containing left and tiny fat-containing right ingu inal hernias. No acute findings. Osseous structures: Thoracic spine: Demineralization. No vertebral body height loss or malalignment. Cervicothoracic, fac et, and lumbosacral alignment is maintained. No vertebral body or posterior neural arch fracture. Dis c spaces are fairly well-preserved with no evidence of canal narrowing. Lumbar spine: Lumbar vertebral body alignment is within normal limits. Thoracolumbar, lumbosacral, an d facet alignment is preserved. Mild age-indeterminate compression of the L2 superior endplate; the p osterior neural arch and posterior cortex are intact. No vertebral body or posterior neural arch frac ture is otherwise identified. L5-S1 moderately advanced degenerative disc disease with moderate degen erative change at L3-L4. Moderately advanced facet arthropathy throughout the lumbar spine. The degen erative change results in at least mild to moderate multilevel canal, lateral recess, and foraminal n arrowing. Pelvic ring: No fracture. Pubic symphysis, sacroiliac joint, and hip alignment is within normal limit s. Bilateral hip mild osteoarthritis. The visualized portions of both proximal femur are intact. Ribs: Chronic appearing irregularity of multiple anterior and posterior ribs. No definite acute fract ures identified. Visualized sternum, scapula, and clavicles: Negative IMPRESSION:1. L2 superior endplate age-indeterminate compression. This is favored to be chronic altho ugh correlation with any evidence of acute lumbar pain is recommended to further evaluate for the pre sence of an acute compression fracture. 2. No findings of trauma or acute disease are otherwise identified in the chest, abdomen, pelvis, tho racic spine, or lumbar spine. 3. Bilateral nephrolithiasis with a distal right ureter 1.3 x 0.6 x 0.6 cm nonobstructing stone. 4. Markedly irregular urinary bladder with wall trabeculation and multiple bladder diverticula. Corre lation with any evidence of bladder outlet obstruction is recommended and consider referral to urolog y. 5. Advanced coronary calcifications. 6. Additional nonacute findings as described above. Report Dictated By: Charlie Stark MD at 05/12/2018 5:15 PM Report E-Signed By: Charlie Stark MD at 05/12/2018 5:47 PM WSN:[id number]
[2018-05-12] MEDS ORDERED: MORPHINE 4 MG/ML SDV IVP ONE (18:05)
[2018-05-12] MEDS ORDERED: INFLUENZA VIRUS VAC 0.5ML SYR IM ONLY ONE (19:15)
[2018-05-12] MEDS ORDERED: MAGNESIUM HYDROXIDE* 30ML UDCP PO PRN (19:15)
[2018-05-12] MEDS ORDERED: BISACODYL 10 MG SUPP PR PRN (19:15)
[2018-05-12] MEDS ORDERED: INSULIN HUM LISPRO 100 UN/ML 3 ML VIAL SUBQ PRN (19:15)
[2018-05-12] MEDS ORDERED: BACL-1 PO (19:34)
[2018-05-12] MEDS ORDERED: FLUO20TA2 PO (19:34)
[2018-05-12] MEDS ORDERED: LEV125 PO (19:34)
[2018-05-12] MEDS ORDERED: ATOR-1 PO (19:34)
[2018-05-12] MEDS ORDERED: oxyCODONE HCL 5 MG CAP PO PRN (20:00)
[2018-05-12 20:06] VITALS: BP 142/91
--- NOTE | 2018-05-12 20:06 | History & Physical ---
History of Present Illness History of Present Illness 77yo male with a h/o hemiplegia/dysphasia secondary to CVA who was brought to the ER for pain. Yesterday, he was in his normal state of health. He was working with his during a transfer at about 1500. He didn't transfer his weight to his right leg, which he sometimes does, became unstable and fell back on his buttock and back. His is not able to get him off the floor, so made him comfortable, and then got family over to help get him back to his wheelchair. He was able to sit up and ate dinner. He seemed to sleep well. Today, he was reporting pain, but it is difficult for him to specify. His noted that he had had a lot of discomfort with sitting up. Also, he was unable to lift his good leg (i.e. left) to get into the care, which he normally can, secondary to being limited by pain. No new changes in medications. History Problems: (1) HTN (hypertension) Status: Chronic (2) BPH (benign prostatic hyperplasia) Status: Chronic (3) T2DM (type 2 diabetes mellitus) Status: Chronic (4) Stroke Status: Chronic (5) Hypothyroid Status: Chronic Home Meds Reported Medications Baclofen (BACLOFEN) 10 Mg Tablet, 10 MG PO HS, #30 TAB 05/12/18 Atorvastatin Calcium (ATORVASTATIN CALCIUM) 80 Mg Tablet, 1 TAB PO HS, TAB 05/12/18 Fluoxetine Hcl (FLUOXETINE HCL) 20 Mg Tablet, 20 MG PO QPM 05/12/18 Levothyroxine Sodium (LEVOTHYROXINE SODIUM) 0.125 Mg Tab, 0.125 MG PO QDAY, TAB 05/12/18 Pioglitazone Hcl (PIOGLITAZONE HCL) 15 Mg Tablet, 15 MG PO QDAY 05/12/18 Glimepiride (GLIMEPIRIDE) 4 Mg Tablet, 4 MG PO QDAY 05/12/18 Docusate Sodium (STOOL SOFTENER) 100 Mg Capsule, 100 MG PO DAILY, CAPSULE 02/05/17 Tamsulosin Hcl (FLOMAX) 0.4 Mg Cap.er.24h, 0.4 MG PO BID, CAP 02/05/17 Amlodipine Besylate (NORVASC) 2.5 Mg Tablet, 1 TAB PO QDAY, TAB 02/05/17 Vitamin B Complex (VITAMIN B COMPLEX) 1 Each Capsule, 1 EACH PO, CAPSULE 02/05/17 Aspirin (ASPIRIN) 325 Mg Tablet, 325 MG PO DAILY, TAB 02/05/17 Methylphenidate Hcl (RITALIN) 5 Mg Tablet, 5 MG PO DAILY 02/05/17 Discontinued Reported Medications Metformin Hcl (METFORMIN HCL) 500 Mg Tablet, 1 TAB PO BID, TAB 12/03/17 Atorvastatin Calcium (LIPITOR) 10 Mg Tablet, 80 TAB PO QDAY, TAB 02/05/17 Fluoxetine Hcl (PROZAC) 10 Mg Capsule, 20 MG PO QDAY, CAPSULE 02/05/17 Levothyroxine Sodium (SYNTHROID) 25 Mcg Tablet, 125 MCG PO QDAY 02/05/17 Allergies: Coded Allergies: No Known Drug Allergies (Unverified , 12/03/17) Hx Smoking: No Smoking Status: Never Smoker Exposure to Second Hand Smoke?: No Hx Alcohol Use: Yes Hx Substance Use Disorder: No Review of Systems All Systems Reviewed/Normal: Yes, Except as Noted Exam Vital Signs Vital Signs Date Time Temp Pulse Resp B/P (MAP) Pulse Ox O2 Delivery O2 Flow Rate FiO2 05/12/18 19:20 67 15 90 05/12/18 19:00 138/78 (98) 05/12/18 15:19 99.7 Room Air General Appearance: Alert, Awake, No Acute Distress Neuro: Other (Occasional one word answers or shakes head. Doesn't move right arm or leg) Eyes: Other (Right medial conjunctiva with hemorrhage) Cardiovascular: Regular Rate and Rhythm Respiratory: Clear to Auscultation GI: Abd Soft and Non-Tender (Distension of abdomen midline that is soft and only mildly uncomfortable) Musculoskeletal: Other (Pain in low back with palpation. Difficult to know exactly where and how severe. He appeared relatively comfortable. He did report pain when he lifted his left leg. ) Extremities: No Edema Integumentary: No Jaundice, No Cyanosis Medical Decision Making Data Points Result Diagram: 05/12/18 1612 05/12/18 161 Item Value Date Time Total Bilirubin 0.3 mg/dl 05/12/18 1612 Aspartate Amino Transf (AST/SGOT) 19 U/L 05/12/18 1612 Alanine Aminotransferase (ALT/SGPT) 31 U/L 05/12/18 1612 Alkaline Phosphatase 48 U/L 05/12/18 1612 Neutrophils (%) (Auto) 81.1 % H 05/12/18 1612 Lymphocytes (%) (Auto) 9.3 % L 05/12/18 1612 Monocytes (%) (Auto) 8.7 % 05/12/18 1612 Eosinophils (%) (Auto) 0.6 % 05/12/18 1612 EKG / Imaging Imaging Lumbar Spine CT/Thoracic Spine CT/Chest/Abd/Pelvis CT - 1. L2 superior endplate age-indeterminate compression. This is favored to be chronic although correlation with any evidence of acute lumbar pain is recommended to further evaluate for the presence of an acute compression fracture. 2. No findings of trauma or acute disease are otherwise identified in the chest, abdomen, pelvis, thoracic spine, or lumbar spine. 3. Bilateral nephrolithiasis with a distal right ureter 1.3 x 0.6 x 0.6 cm nonobstructing stone. 4. Markedly irregular urinary bladder with wall trabeculation and multiple rosa dder diverticula. Correlation with any evidence of bladder outlet obstruction is recommended and consider referral to urology. 5. Advanced coronary calcifications. 6. Additional nonacute findings as described above. Assessment and Plan Problems: (1) Compression fracture Status: Acute Assessment & Plan: He presented with pain secondary to a fall the day before admission. There is a compression fracture of unknown chronicity seen at L2 by CT. He has pain with palpation to the low back and raising the right leg. Will try lidocaine patch, Naprosyn, APAP, and oxycodone for pain. Will ask OT/PT to work with the patient. (2) Bladder trabeculation Status: Chronic Assessment & Plan: Seen on CT with diverticula. No previous abdominal CT to compare. Radiology recommends a possible Urology evaluation. (3) Stroke Status: Chronic Assessment & Plan: He has severe dysphasia and right sided weakness secondary to a stroke in August of 2015. He currently works with outpatient PT/ST. Will have him on a soft mechanical diet. He takes his pills with applesauce. Continue chronic Ritalin, Baclofen, ASA. (4) HTN (hypertension) Status: Chronic Assessment & Plan: Continue chronic amlodipine. (5) Hypothyroid Status: Chronic Assessment & Plan: Continue chronic levothyroxine. (6) T2DM (type 2 diabetes mellitus) Status: Chronic Assessment & Plan: Continue chronic Amaryl and Actos. He will be on SSI level 2 to cover AC and HS glucose checks. (7) BPH (benign prostatic hyperplasia) Status: Chronic Assessment & Plan: Continue chronic Tamsulosin. Central Venous Access Medical Necessity for Access: Hemodynamic Monitoring, IV Access, Medication Administration Copies to: BERNARDA ARMSTRONG MD ; Venous Thromboembolism Antithrombotics Is Pt On Any Antithrombotics?: No Exam Sepsis Risk: No Definite Risk ANGELA LEDESMA MD May 12, 2018 20:06
[2018-05-12] MEDS: FLUoxetine HCL 20 MG CAP PO SCH (20:48)
[2018-05-12] MEDS: ATORVASTATIN 40 MG TAB PO SCH (20:48)
[2018-05-12] MEDS: DOCUSATE SODIUM 100 MG CAP PO SCH (20:51)
[2018-05-12] MEDS: TAMSULOSIN HCL 0.4 MG CAP PO SCH (20:51)
[2018-05-12] MEDS: PATCH REMOVAL 1 EA TP SCH (20:51)
[2018-05-12] MEDS: ACETAMINOPHEN 500 MG TAB PO PRN (20:51)
[2018-05-13] MEDS: NAPROXEN 500 MG TAB PO PRN ×2 (01:11→14:09)
[2018-05-13 05:35] VITALS: BP 109/70
[2018-05-13] MEDS: LEVOTHYROXINE SOD 0.125 MG TAB PO SCH (05:37)
[2018-05-13] MEDS: ACETAMINOPHEN 500 MG TAB PO PRN (05:53)
[2018-05-13 07:24] VITALS: BP 128/67
[2018-05-13] MEDS: LIDOCAINE 5% PATCH TP SCH (08:52)
[2018-05-13] MEDS: GLIMEPIRIDE 2 MG TAB PO SCH (09:00)
[2018-05-13] MEDS: METHYLPHENIDATE HCL 5 MG TAB PO SCH (09:00)
[2018-05-13] MEDS: ASPIRIN 325 MG ENTERIC COATED PO SCH (09:00)
[2018-05-13] MEDS: TAMSULOSIN HCL 0.4 MG CAP PO SCH ×2 (09:00→20:46)
[2018-05-13] MEDS ORDERED: FLUoxetine HCL 20 MG CAP PO SCH (09:00)
[2018-05-13] MEDS ORDERED: CYANOCOBALAMIN 100 MCG TAB PO SCH (09:00)
[2018-05-13] MEDS: amLODIPine BESYL(*) 2.5 MG TAB PO SCH (09:00)
[2018-05-13] MEDS: DOCUSATE SODIUM 100 MG CAP PO SCH ×2 (09:00→20:46)
[2018-05-13] MEDS: ENOXAPARIN 40 MG/0.4ML SYR SC SCH (09:01)
[2018-05-13] MEDS: PIOGLITAZONE HCL 15 MG TAB PO SCH (09:01)
[2018-05-13] MEDS: POLYETHYLENE GLYCOL 17 GM PKT PO SCH (09:01)
--- NOTE | 2018-05-13 09:52 | Hospitalist Progress Note ---
Subjective Progress Notes Subjective 77M admitted for pain after fall, compression Fx. CHARLENE overnight, still having pain improved some with low dose narcotic. Physical Exam Vital Signs Date Time Temp Pulse Resp B/P (MAP) Pulse Ox O2 Delivery O2 Flow Rate FiO2 05/13/18 07:36 90 05/13/18 07:36 Room Air 05/13/18 07:24 97.8 68 20 128/67 (87) 05/13/18 05:35 1.0 Intake and Output 05/13/18 06:59 Intake Total 640 ml Balance 640 ml Intake Oral 640 ml # Voids 2 General Appearance: Awake, No Acute Distress Neuro: Other (Chronic hemiparesis, non-verbal at baseline) ENT: Moist Mucous Membranes, Posterior Pharynx Clear Cardiovascular: Normal Rhythm & Peripheral Pulses Respiratory: No Respiratory Distress Extremities: Soft and Non Tender, Warm, Perfused Integumentary: Skin Intact without Lesion / Mass Result Diagram: 05/12/18 1612 05/12/18 1612 Assessment and Plan Problems: (1) Compression fracture Status: Acute Assessment & Plan: He presented with pain secondary to a fall the day before admission. There is a compression fracture of unknown chronicity seen at L2 by CT. He has pain with palpation to the low back and raising the right leg. Will try lidocaine patch, Naprosyn, [place] for pain. OT/PT to work with the patient. (2) Bladder trabeculation Status: Chronic Assessment & Plan: Seen on CT with diverticula. No previous abdominal CT to compare. Radiology recommends a possible Urology evaluation. (3) Stroke Status: Chronic Assessment & Plan: He has severe dysphasia and right sided weakness secondary to a stroke in August of 2015. He currently works with outpatient PT/ST. Will have him on a soft mechanical diet. He takes his pills with applesauce. Continue chronic Ritalin, Baclofen, ASA. (4) HTN (hypertension) Status: Chronic Assessment & Plan: Continue chronic amlodipine. (5) Hypothyroid Status: Chronic Assessment & Plan: Continue chronic levothyroxine. (6) T2DM (type 2 diabetes mellitus) Status: Chronic Assessment & Plan: Continue chronic Amaryl and Actos. He will be on SSI level 2 to cover AC and HS glucose checks. (7) BPH (benign prostatic hyperplasia) Status: Chronic Assessment & Plan: Continue chronic Tamsulosin. Central Venous Access Medical Necessity for Access: Hemodynamic Monitoring, IV Access, Medication Administration Exam Sepsis Risk: No Definite Risk HARLEEN AGUILAR DO May 13, 2018 09:52
[2018-05-13] MEDS: APAP/HYDROCODONE 325/5 TAB PO PRN ×3 (11:13→22:25)
[2018-05-13 14:30] VITALS: BP 128/67
[2018-05-13 19:12] VITALS: BP 131/55
[2018-05-13] MEDS: ATORVASTATIN 40 MG TAB PO SCH (20:46)
[2018-05-13] MEDS: FLUoxetine HCL 20 MG CAP PO SCH (20:46)
[2018-05-13] MEDS: PATCH REMOVAL 1 EA TP SCH (20:47)
[2018-05-14 03:46] VITALS: BP 112/56
[2018-05-14] MEDS: APAP/HYDROCODONE 325/5 TAB PO PRN ×2 (03:49→09:56)
[2018-05-14] MEDS: LEVOTHYROXINE SOD 0.125 MG TAB PO SCH (06:08)
--- NOTE | 2018-05-14 08:44 | Hospitalist Progress Note ---
Subjective Progress Notes Subjective The patient indicates that he does have pain in his low back. It is unclear how well the pain is controlled. His is not present to help with communication. Physical Exam Vital Signs Date Time Temp Pulse Resp B/P (MAP) Pulse Ox O2 Delivery O2 Flow Rate FiO2 05/14/18 07:28 85 05/14/18 03:46 97.9 56 12 112/56 (74) Nasal Cannula 0.5 Intake and Output 05/14/18 07:00 Intake Total 460 ml Balance 460 ml Intake Oral 460 ml # Voids 7 General Appearance: Alert, Awake, No Acute Distress Result Diagram: 05/12/18 1612 05/12/18 1612 Assessment and Plan Problems: (1) Compression fracture Status: Acute Assessment & Plan: He presented with pain secondary to a fall the day before admission. There is a compression fracture of unknown chronicity seen at L2 by CT. He has pain with palpation to the low back and raising the right leg. Trying lidocaine patch, Naprosyn, [place] for pain. OT/PT is working with the patient. (2) Bladder trabeculation Status: Chronic Assessment & Plan: Seen on CT with diverticula. No previous abdominal CT to compare. Radiology recommends a possible Urology evaluation. (3) Stroke Status: Chronic Assessment & Plan: He has severe dysphasia and right sided weakness secondary to a stroke in August of 2015. He currently works with outpatient PT/ST. Will have him on a soft mechanical diet. He takes his pills with applesauce. Continue chronic Ritalin, Baclofen, ASA. (4) HTN (hypertension) Status: Chronic Assessment & Plan: Continue chronic amlodipine. (5) Hypothyroid Status: Chronic Assessment & Plan: Continue chronic levothyroxine. (6) T2DM (type 2 diabetes mellitus) Status: Chronic Assessment & Plan: Glucose ranging from 107-134. Continue chronic Amaryl and Actos. He will be on SSI level 2 to cover AC and HS glucose checks. (7) BPH (benign prostatic hyperplasia) Status: Chronic Assessment & Plan: Continue chronic Tamsulosin. Central Venous Access Medical Necessity for Access: Hemodynamic Monitoring, IV Access, Medication Administration Exam Sepsis Risk: No Definite Risk ANGELA LEDESMA MD May 14, 2018 08:44
[2018-05-14] MEDS ORDERED: CYANOCOBALAMIN 100 MCG TAB PO SCH (09:00)
[2018-05-14] MEDS: amLODIPine BESYL(*) 2.5 MG TAB PO SCH (09:00)
[2018-05-14 09:15] VITALS: BP 111/64
[2018-05-14] MEDS: ENOXAPARIN 40 MG/0.4ML SYR SC SCH (09:34)
[2018-05-14] MEDS: POLYETHYLENE GLYCOL 17 GM PKT PO SCH (09:34)
[2018-05-14] MEDS: TAMSULOSIN HCL 0.4 MG CAP PO SCH (09:34)
[2018-05-14] MEDS: DOCUSATE SODIUM 100 MG CAP PO SCH (09:35)
[2018-05-14] MEDS: PIOGLITAZONE HCL 15 MG TAB PO SCH (09:36)
[2018-05-14] MEDS: METHYLPHENIDATE HCL 5 MG TAB PO SCH (09:37)
[2018-05-14] MEDS: GLIMEPIRIDE 2 MG TAB PO SCH (09:38)
[2018-05-14] MEDS: ASPIRIN 325 MG ENTERIC COATED PO SCH (09:38)
[2018-05-14] MEDS: LIDOCAINE 5% PATCH TP SCH (09:42)
[2018-05-14] MEDS ORDERED: IBUP-136 PO (09:52)
[2018-05-14] MEDS ORDERED: POLY17PO21 PO (09:52)
[2018-05-14] MEDS ORDERED: LIDO700A19 TP (09:52)
[2018-05-14] MEDS ORDERED: DOCU-202 PO (09:52)
[2018-05-14] MEDS ORDERED: MOM PO (09:52)
[2018-05-14] MEDS ORDERED: LOR5/325 PO (09:52)
--- NOTE | 2018-05-14 10:18 | Hospitalist Depart ---
Discharge Summary Reason for Hosp/Final Diag: (1) Compression fracture Status: Acute Hospital Course & Plan: He presented with pain secondary to a fall the day before admission. There is a compression fracture of unknown chronicity seen at L2 by CT. He has pain with palpation to the low back and raising the right leg. He was tried on lidocaine patch, Naprosyn, [place] for pain. He is now able to sit-up and do transfers. OT/PT has been working with the patient. (2) Constipation Status: Acute Hospital Course & Plan: He hasn't had a BM since a couple of days before admission. Will have him on daily MiraLax, twice daily Docusate and prn MOM. He is comfortable, currently. His has been instructed to continue the bowel regimen until he his off the [place]. 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 No previous abdominal CT to compare. I spoke with Dr. Laureano who reviewed the CT. He felt that it was abnormal enough that it warranted further evaluation as an outpatient. I informed the patient's and she will follow up with Dr. Armstrong and then get a referral to Dr. Laureano. (4) Stroke Status: Chronic Hospital Course & Plan: He has severe dysphasia and right sided weakness secondary to a stroke in August of 2015. He currently works with outpatient PT/ST, but will receive it through home health for while recovering from the the compression fracture. Continue chronic Ritalin, Baclofen, ASA. (5) HTN (hypertension) Status: Chronic Hospital Course & Plan: Continue chronic amlodipine. (6) Hypothyroid Status: Chronic Hospital Course & Plan: Continue chronic levothyroxine. (7) T2DM (type 2 diabetes mellitus) Status: Chronic Hospital Course & Plan: Glucose ranging from 107-134. Continue chronic Amaryl and Actos. (8) BPH (benign prostatic hyperplasia) Status: Chronic Hospital Course & Plan: Continue chronic Tamsulosin. Departure Weight (Pounds): 200 Weight (Ounces): 8.0 Result Diagram: 05/12/18 16105/12/18 1612 Item Value Date Time White Blood Count 8.0 k/uL 05/12/18 1612 Neutrophils (%) (Auto) 81.1 % H 05/12/18 161 Lymphocytes (%) (Auto) 9.3 % L 05/12/18 1612 Monocytes (%) (Auto) 8.7 % 05/12/18 1612 Hemoglobin 14.4 g/dL 05/12/18 1612 Platelet Count 196 K/uL 05/12/18 1612 Whole Blood Glucose 107 mg/DL 05/14/18 0759 Whole Blood Glucose 126 mg/DL H 05/13/18 2036 Whole Blood Glucose 134 mg/DL H 05/13/18 1703 Whole Blood Glucose 119 mg/DL H 05/13/18 1106 Total Bilirubin 0.3 mg/dl 05/12/18 1612 Aspartate Amino Transf (AST/SGOT) 19 U/L 05/12/18 1612 Alanine Aminotransferase (ALT/SGPT) 31 U/L 05/12/18 1612 Alkaline Phosphatase 48 U/L 05/12/18 1612 Total Protein 7.0 g/dl 05/12/18 1612 Albumin 3.9 g/dl 05/12/18 1612 Imaging 05/12/[address]/Thoracic Spine CT/Chest/Abd/Pelvis CT - 1. L2 superior endplate age-indeterminate compression. This is favored to be chronic although correlation with any evidence of acute lumbar pain is recommended to further evaluate for the presence of an acute compression fracture. 2. No findings of trauma or acute disease are otherwise identified in the chest, abdomen, pelvis, thoracic spine, or lumbar spine. 3. Bilateral nephrolithiasis with a distal right ureter 1.3 x 0.6 x 0.6 cm nonobstructing stone. 4. Markedly irregular urinary bladder with wall trabeculation and multiple bladder diverticula. Correlation with any evidence of bladder outlet obstruction is recommended and consider referral to urology. 5. Advanced coronary calcifications. 6. Additional nonacute findings as described above. 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: Other Discharge Instructions Home Meds Active Scripts Ibuprofen (IBUPROFEN) 200 Mg Capsule, 1-3 CAP PO Q8H PRN for pain for 1 Day, CAPSULE Prov:ANGELA LEDESMA MD 05/14/18 Polyethylene Glycol 3350 (POLYETHYLENE GLYCOL 3350) 17 Gm Powd.pack, 17 GM PO QDAY for constipation, #1 BOTTLE Use while taking pain medication Prov:ANGELA LEDESMA MD 05/14/18 Magnesium Hydroxide (MILK OF MAGNESIA) 400 Mg/5 Ml Oral.susp, 30 ML PO QDAY PRN for CONSTIPATION for 1 Day, Prov:ANEGLA LEDESMA MD 05/14/18 Hydrocodone Bit/Acetaminophen (HYDROCODON-ACETAMINOPHEN 5-325) 1 Each Tablet, 1- 2 EACH PO Q6H PRN for PAIN, #30 Prov:ANGELA LEDESMA MD 05/14/18 Lidocaine (Lidocaine) 5 % Adh..patch, 1 EACH TP QDAY, #10 Apply over L2 area Prov:ANGELA LEDESMA MD 05/14/18 Docusate Sodium (DOCUSATE SODIUM) 100 Mg Capsule, 100 MG PO BID for 1 Day, CAPSULE take twice a day while on pain medications, then can go back to daily when off Prov:ANGELA LEDESMA MD 05/14/18 Reported Medications Baclofen (BACLOFEN) 10 Mg Tablet, 10 MG PO HS, #30 TAB 05/12/18 Atorvastatin Calcium (ATORVASTATIN CALCIUM) 80 Mg Tablet, 1 TAB PO HS, TAB 05/12/18 Fluoxetine Hcl (FLUOXETINE HCL) 20 Mg Tablet, 20 MG PO QPM 05/12/18 Levothyroxine Sodium (LEVOTHYROXINE SODIUM) 0.125 Mg Tab, 0.125 MG PO QDAY, TAB 05/12/18 Pioglitazone Hcl (PIOGLITAZONE HCL) 15 Mg Tablet, 15 MG PO QDAY 05/12/18 Glimepiride (GLIMEPIRIDE) 4 Mg Tablet, 4 MG PO QDAY 05/12/18 Tamsulosin Hcl (FLOMAX) 0.4 Mg Cap.er.24h, 0.4 MG PO BID, CAP 02/05/17 Amlodipine Besylate (NORVASC) 2.5 Mg Tablet, 1 TAB PO QDAY, TAB 02/05/17 Vitamin B Complex (VITAMIN B COMPLEX) 1 Each Capsule, 1 EACH PO, CAPSULE 02/05/17 Aspirin (ASPIRIN) 325 Mg Tablet, 325 MG PO DAILY, TAB 02/05/17 Methylphenidate Hcl (RITALIN) 5 Mg Tablet, 5 MG PO DAILY 02/05/17 Discontinued Reported Medications Docusate Sodium (STOOL SOFTENER) 100 Mg Capsule, 100 MG PO DAILY, CAPSULE 02/05/17 Metformin Hcl (METFORMIN HCL) 500 Mg Tablet, 1 TAB PO BID, TAB 4/2/18 Atorvastatin Calcium (LIPITOR) 10 Mg Tablet, 80 TAB PO QDAY, TAB 02/05/17 Fluoxetine Hcl (PROZAC) 10 Mg Capsule, 20 MG PO QDAY, CAPSULE 02/05/17 Levothyroxine Sodium (SYNTHROID) 25 Mcg Tablet, 125 MCG PO QDAY 02/05/17 Diet: Regular Activity: As Tolerated Special Instructions: Follow up with Dr. Armstrong in a couple of weeks to check on pain and to refer to Dr. Laureano (Urology) in regards to the bladder irregularities Copies to: BERNARDA ARMSTRONG MD ; Venous Thromboembolism Antithrombotics Is Pt On Any Antithrombotics?: No [id number] Certification Face to Face Home Health Certification Institutional Provider conducted the [id number] encounter. Electronic Undersigning Physician Certifies Home Health. I certify that the patient has been under my care and that I had a [id number] encounter that meets the physician [id number] encounter requirements with this patient. This patient is home-bound due to safety issues and continues to require assistance with ADL's. I certify that based on my findings, that Nursing, Aides and the following Home Health services are medically necessary: Medical Necessity: Nursing, Rehab (OT/PT/ST) Date Face to Face Conducted: May 14, 2018 ANGELA LEDESMA MD May 14, 2018 10:18
--- NOTE | 2018-05-14 11:18 | Medical Nutrition Therapy ---
Nutrition Anthropometrics Weight (Pounds): 200 Weight (Calculated Kilograms): 90.718 Alon Nutrition Score: Adequate Alon Nutrition Risk Score: 14 Dietary Referral Nutrition Risk Factors: Nutrition Risk Comment: Nutritional Diagnosis Nutritional Risk Acuity 2: Swallowing Problem Nutritional Risk Acuity 3: Fx & > 80 yrs Nutritional Risk Acuity 4: Modified Diet Past Medical History: Hx of HTN, benign protatic hyperlasia, T2DM, stroke, and hypothyroid. Nutritional Acuity: 2-Moderate Nutrition Diagnosis: Swallowing Difficulties Nutrition Etiology: Physiological Causes Nutrition Problem/Etiology/Sym: Swallowing difficulty, as related to physiological causes, as evidenced by paralyzation of right extremities from past CVA, and modified diet, soft mechanical. Diet Type: Diabetic, Soft Mechanical Nutrition Intervention: Encourage intake, Change diet Nutrition Monitoring & Eval RD Patient Assessment Time: [address] Assessment Type: RD Assessment Patient Nutrition Acuity: 2-Moderate Follow Up Date: May 17, 2018 Nutritional Comment: 05/13. Admitted for back pain. Pt is being treated for compression fx after fall. Pt is currently on a soft mechanical diet, due to severe dysphagia from hx of stroke and weakness. Recommend change to dysphagia 2. Pt is receiving 2-10 units humalog Q day. Recent labs suggest low Hct 41.8 and elevated random BG 179 (05/12). Whole BG now WNL, 110. Pt has an estimated weight of 200lbs. Will monitor pt and encourage intake. MR 05/14. Pt is on soft mechnical and diabetic diet, consuming 100% of meals. Pt cont on dose of humalog. Is experiencing +1 pitting edema in left leg. There a no new labs to report. Will cont to monitor pt. ALVAREZELIF LOCKWOODA May 14, 2018 10:05
== END 2018-05-14 09:43 | disposition home or self-care (01) ==
LOC: ER 15:21 → MED 19:33 → INTOOBSV 19:33
PROVIDERS: ADMIT Internal Medicine; ATTEND Internal Medicine
DX: S32.020A Wedge compression fracture of second lumbar vertebra, initial encounter for closed fracture (principal); N32.89 Other specified disorders of bladder; Z86.73 Personal history of transient ischemic attack (TIA), and cerebral infarction without residual deficits; I10 Essential (primary) hypertension; E03.9 Hypothyroidism, unspecified; E11.9 Type 2 diabetes mellitus without complications; N40.0 Benign prostatic hyperplasia without lower urinary tract symptoms
CPT/HCPCS: 36416; 71260; 72129; 72132; 74177; 82948; 85025; 96372; 96374; 97161; 97166; 99284; A9270; G0378; J1650; J2270; Q9967; 82040; 82247; 82310; 82374; 82435; 82565; 82947; 84075; 84132; 84155; 84295; 84450; 84460; 84520

== ENCOUNTER 2018-06-09 15:23 | Emergency (ER) | payer MEDICARE ==
[2017-02-05 16:51] VITALS: Wt 45.8 kg
--- NOTE | 2018-06-09 15:30 | ER Report ---
History and Physical Time Seen By MD: 15:24 HPI/ROS CHIEF COMPLAINT: altered mental status HISTORY OF PRESENT ILLNESS: Patient brought in by EMS for concern for altered mental status with last known normal of 1445. states that as she was t ransferring patient from toilet, he developed jerking activity of the upper and lower extremities, began drooling and his face turned red. This lasted for a few seconds, after which patient was nonresponsive for approximately 10 minutes. Upon EMS arrival patient was responsive to verbal stimulation but per not aware as he normally would be. Upon arrival here, patient still appeared confused compared to normal. Patent patient's states this has never happened previously. He did not have anything to eat or drink right before the event. Patient took his normal morning medications. EMS reports a glucose of 106 and round. Patient has not had recent falls or injuries. REVIEW OF SYSTEMS: Per , pt has not had recent complaints. Complete ROS unable to obtain due to pt's AMS Remainder of the 14 system rev: No (unable to obain; altered mental status) Allergies: Coded Allergies: No Known Drug Allergies (Unverified , 06/09/18) Home Meds Active Scripts Ibuprofen (IBUPROFEN) 200 Mg Capsule, 1-3 CAP PO Q8H PRN for pain for 1 Day, CAPSULE Prov:ANGELA LEDESMA MD 05/14/18 Polyethylene Glycol 3350 (POLYETHYLENE GLYCOL 3350) 17 Gm Powd.pack, 17 GM PO QDAY for constipation, #1 BOTTLE Use while taking pain medication Prov:ANGELA LEDESMA MD 05/14/18 Magnesium Hydroxide (MILK OF MAGNESIA) 400 Mg/5 Ml Oral.susp, 30 ML PO QDAY PRN for CONSTIPATION for 1 Day, Prov:ANGELA LEDESMA MD 05/14/18 Hydrocodone Bit/Acetaminophen (HYDROCODON-ACETAMINOPHEN 5-325) 1 Each Tablet, 1- 2 EACH PO Q6H PRN for PAIN, #30 Prov:ANGELA LEDESMA MD 05/14/18 Lidocaine (Lidocaine) 5 % Adh..patch, 1 EACH TP QDAY, #10 Apply over L2 area Prov:ANGELA LEDESMA MD 05/14/18 Docusate Sodium (DOCUSATE SODIUM) 100 Mg Capsule, 100 MG PO BID for 1 Day, CAPSULE take twice a day while on pain medications, then can go back to daily when off Prov:ANGELA LEDESMA MD 05/14/18 Reported Medications Fluoxetine Hcl (PROZAC) 10 Mg Capsule, 10 MG PO QDAY, CAPSULE 06/09/18 Baclofen (BACLOFEN) 10 Mg Tablet, 10 MG PO HS, #30 TAB 05/12/18 Atorvastatin Calcium (ATORVASTATIN CALCIUM) 80 Mg Tablet, 1 TAB PO HS, TAB 05/12/18 Levothyroxine Sodium (LEVOTHYROXINE SODIUM) 0.125 Mg Tab, 0.125 MG PO QDAY, TAB 05/12/18 Pioglitazone Hcl (PIOGLITAZONE HCL) 15 Mg Tablet, 15 MG PO QDAY 05/12/18 Glimepiride (GLIMEPIRIDE) 4 Mg Tablet, 4 MG PO QDAY 05/12/18 Tamsulosin Hcl (FLOMAX) 0.4 Mg Cap.er.24h, 0.4 MG PO BID, CAP 02/05/17 Amlodipine Besylate (NORVASC) 2.5 Mg Tablet, 1 TAB PO QDAY, TAB 02/05/17 Vitamin B Complex (VITAMIN B COMPLEX) 1 Each Capsule, 1 EACH PO, CAPSULE 02/05/17 Aspirin (ASPIRIN) 325 Mg Tablet, 325 MG PO DAILY, TAB 02/05/17 Methylphenidate Hcl (RITALIN) 5 Mg Tablet, 5 MG PO DAILY 02/05/17 Discontinued Reported Medications Fluoxetine Hcl (FLUOXETINE HCL) 20 Mg Tablet, 20 MG PO QPM 05/12/18 Reviewed Nurses Notes: Yes Old Medical Records Reviewed: Yes Hx Smoking: No Smoking Status: Never Smoker Exposure to Second Hand Smoke?: No Hx Substance Use Disorder: No Hx Alcohol Use: Yes Constitutional Vital Sign - Last 24 Hours 06/09/18 06/09/18 06/09/18 06/09/18 15:23 15:38 15:41 15:41 Temp 97.8 Pulse ? 76 Resp 16 B/P (MAP) 126/74 (91) 126/74 Pulse Ox 91 O2 Delivery Nasal Cannula 06/09/18 06/09/18 06/09/18 06/09/18 15:53 15:59 16:08 16:15 Pulse 72 74 Resp 13 13 B/P (MAP) 112/78 (89) 131/80 (97) Pulse Ox 95 O2 Delivery Nasal Cannula O2 Flow Rate 3 06/09/18 06/09/18 06/09/18 06/09/18 16:35 16:40 16:45 16:50 Pulse 71 65 Resp 16 14 B/P (MAP) 136/65 (88) 125/80 (95) Pulse Ox 97 97 06/09/18 06/09/18 06/09/18 06/09/18 16:55 17:00 17:10 17:15 Pulse 72 71 Resp 15 14 B/P (MAP) 136/83 (100) 124/69 (87) Pulse Ox 97 97 O2 Delivery Nasal Cannula Nasal Cannula O2 Flow Rate 3 3 06/09/18 06/09/18 06/09/18 06/09/18 17:20 17:30 17:35 17:45 Pulse 71 67 Resp 14 12 B/P (MAP) 128/72 (90) 135/88 (104) Pulse Ox 97 96 O2 Delivery Nasal Cannula Nasal Cannula O2 Flow Rate 3 3 06/09/18 06/09/18 06/09/18 17:50 18:00 18:05 Pulse 69 Resp 12 14 B/P (MAP) 144/78 (100) Pulse Ox 96 Physical Exam General Appearance: Pt is awake. No immediate need for airway intervention. Pt does not appear in acute distress Eyes: Pupils equal and round no pallor or injection. ENT, Mouth: Mucous membranes are moist. Respiratory: There are no retractions, lungs are clear to auscultation. Cardiovascular: Regular rate and rhythm. Gastrointestinal: Abdomen is soft and non tender, no masses, bowel sounds normal. Neurological: Pt's eyes open spontaneously, moves left side as baseline, is non verbal. eomi, perrl. L face CN intact (pt has r face/arm/leg/baseline paresis). Initially does not appear to recognize /daughterbut on repeat evaluation, is able to look towards them consistently. LUE linux systems administrator strength nl. LUE strength initially 3+/5 but on repeat exam is able to spont lift and hold leg off bed. Skin: Warm and dry, no rashes. Musculoskeletal: Neck is supple non tender. DIFFERENTIAL DIAGNOSIS: After history and physical exam differential diagnosis was considered for cva, sz, ich,hypoglycemia, electrolyate abnl, aortic disse ction, or other emergent eiology. Medical Decision Making Data Points Result Diagram: 06/09/18 1515 06/09/18 1515 Laboratory Hematology Test 06/09/18 15:15 06/09/18 15:42 Red Blood Count 4.58 M/uL (4.00-5.60) Mean Corpuscular Volume 92.8 fL (80.0-96.0) Mean Corpuscular Hemoglobin 31.9 pg (26.0-33.0) Mean Corpuscular Hemoglobin Concent 34.3 g/dL (32.0-36.0) Red Cell Distribution Width 14.0 % (11.5-14.5) Mean Platelet Volume 8.6 fL (7.2-11.1) Neutrophils (%) (Auto) 67.7 % (39.4-72.5) Lymphocytes (%) (Auto) 22.2 % (17.6-49.6) Monocytes (%) (Auto) 7.3 % (4.1-12.4) Eosinophils (%) (Auto) 1.9 % (0.4-6.7) Basophils (%) (Auto) 0.9 % (0.3-1.4) Nucleated RBC Relative Count (auto) 0.1 /100WBC Neutrophils # (Auto) 5.8 K/uL (2.0-7.4) Lymphocytes # (Auto) 1.9 K/uL (1.3-3.6) Monocytes # (Auto) 0.6 K/uL (0.3-1.0) Eosinophils # (Auto) 0.2 K/uL (0.0-0.5) Basophils # (Auto) 0.1 K/uL (0.0-0.1) Nucleated RBC Absolute Count (auto) 0.01 K/uL Prothrombin Time 12.9 seconds (12.0-14.4) Prothromb Time International Ratio 0.97 Activated Partial Thromboplast Time 27 seconds (23-35) Sodium Level 140 mmol/L (137-145) Potassium Level 3.9 mmol/L (3.5-5.0) Chloride Level 104 mmol/L (98-107) Carbon Dioxide Level 22 mmol/L (22-30) Blood Urea Nitrogen 16 mg/dl (9-21) Creatinine 0.90 mg/dl (0.66-1.25) Glomerular Filtration Rate Calc > 60.0 Random Glucose 122 mg/dl (75-110) Calcium Level 9.0 mg/dl (8.4-10.2) Total Bilirubin 0.3 mg/dl (0.2-1.3) Aspartate Amino Transf (AST/SGOT) 28 U/L (0-35) Alanine Aminotransferase (ALT/SGPT) 37 U/L (0-56) Alkaline Phosphatase 98 U/L (0-126) Troponin I < 0.012 ng/ml Total Protein 7.6 g/dl (6.3-8.2) Albumin 4.0 g/dl (3.5-5.0) Whole Blood Glucose 113 mg/DL (75-110) Chemistry Test 06/09/18 15:15 06/09/18 15:42 White Blood Count 8.6 k/uL (4.5-11.0) Red Blood Count 4.58 M/uL (4.00-5.60) Hemoglobin 14.6 g/dL (14.0-18.0) Hematocrit 42.5 % (42.0-52.0) Mean Corpuscular Volume 92.8 fL (80.0-96.0) Mean Corpuscular Hemoglobin 31.9 pg (26.0-33.0) Mean Corpuscular Hemoglobin Concent 34.3 g/dL (32.0-36.0) Red Cell Distribution Width 14.0 % (11.5-14.5) Platelet Count 272 K/uL (150-450) Mean Platelet Volume 8.6 fL (7.2-11.1) Neutrophils (%) (Auto) 67.7 % (39.4-72.5) Lymphocytes (%) (Auto) 22.2 % (17.6-49.6) Monocytes (%) (Auto) 7.3 % (4.1-12.4) Eosinophils (%) (Auto) 1.9 % (0.4-6.7) Basophils (%) (Auto) 0.9 % (0.3-1.4) Nucleated RBC Relative Count (auto) 0.1 /100WBC Neutrophils # (Auto) 5.8 K/uL (2.0-7.4) Lymphocytes # (Auto) 1.9 K/uL (1.3-3.6) Monocytes # (Auto) 0.6 K/uL (0.3-1.0) Eosinophils # (Auto) 0.2 K/uL (0.0-0.5) Basophils # (Auto) 0.1 K/uL (0.0-0.1) Nucleated RBC Absolute Count (auto) 0.01 K/uL Prothrombin Time 12.9 seconds (12.0-14.4) Prothromb Time International Ratio 0.97 Activated Partial Thromboplast Time 27 seconds (23-35) Glomerular Filtration Rate Calc > 60.0 Calcium Level 9.0 mg/dl (8.4-10.2) Total Bilirubin 0.3 mg/dl (0.2-1.3) Aspartate Amino Transf (AST/SGOT) 28 U/L (0-35) Alanine Aminotransferase (ALT/SGPT) 37 U/L (0-56) Alkaline Phosphatase 98 U/L (0-126) Troponin I < 0.012 ng/ml Total Protein 7.6 g/dl (6.3-8.2) Albumin 4.0 g/dl (3.5-5.0) Whole Blood Glucose 113 mg/DL (75-110) Coagulation Test 06/09/18 15:15 Prothrombin Time 12.9 seconds Prothromb Time International Ratio 0.97 Activated Partial Thromboplast Time 27 seconds EKG/Imaging EKG Interpretation 12 lead EKG: Rhythm: Normal sinus rhythm [place]: Normal QRS: Normal ST segments: Normal Monitor Interpretation: Normal Sinus Rhythm Imaging X-ray: chest was obtained. I viewed the images myself on the PACS system. My interpretation of the images is: widened mediastinum that does not appear to be sig different from prior. The radiologist interpretation had no clinically significant variation from this interpretation. ED Course/Re-evaluation ED Course Pt initially with decreased responsiveness, ability to follow commands; on rpt assessment, nears baseline. Hx c/w seizure activity; no e/o hypoglycemia or severe electrolyte abnl; ct/cta ordered to evaluate for cva. During ED course patient becomes increasingly awake and is at complete baseline at 1730. CT, CTA are negative for acute bleed or stroke. Patient's findings are consistent with seizure with post ictal period and return to baseline. There is no evidence of electrolyte or hypoglycemic emergency associated with this. After ED eval patient is family is comfortable returning home. I will arrange neurology follow-up and anticipate EEG to be performed as outpatient. Family aware that highest risk of repeat seizure is in first week and family will return to emergency department for repeat symptoms or any concerns. Decision to Disposition Date: Jun 09, 2018 Decision to Disposition Time: 18:35 Depart Departure Latest Vital Signs Vital Signs Date Time Temp Pulse Resp B/P (MAP) Pulse Ox O2 Delivery O2 Flow Rate FiO2 06/09/18 18:05 14 06/09/18 18:00 144/78 (100) 06/09/18 17:50 69 96 06/09/18 17:35 Nasal Cannula 3 06/09/18 15:41 97.8 Impression: Primary Impression: Seizure Additional Impression: Altered mental status Condition: Improved Disposition: HOME OR SELF-CARE Referrals: BERNARDA ARMSTRONG MD (PCP) Patient Instructions: New-Onset Seizure in Adults (ED) Additional Instructions: As we discussed, the highest risk for repeat seizure is in the first week. Please return immediately if you have repeat symptoms or any concerns. When you call neurology sunday for follow up, let them know you would like to be seen here, however you may need to travel to [place] if you would like to be seen sooner. 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 This is a swelling of the vessel. As there does not appear to be a bleed around this, I do not think this is the cause of today's symptoms; have your primary doctor refer you to neurosurgery for further evaluation and monitoring of this. On Sunday, call [facility] Their number is: [phone] You may asked to be seen here. Alternatively, their address is: [address] [place] [address] [address] [facility] [address] Problem Qualifiers Additional Impression: Altered mental status Altered mental status type: unspecified Qualified Codes: R41.82 - Altered mental status, unspecified ANNIE BELLE MD Jun 09, 2018 15:30
[2018-06-09 15:44] LABS: PLATELET COUNT, AUTOMATED 272 K/uL (150-450)
--- NOTE | 2018-06-09 15:49 | EKG ---
FACILITY: [facility] PATIENT NAME: DESIREE LYON : [id number] MR: [id number] V: [id number] EXAM DATE: ORDERING PHYSICIAN: ANNIE BELLE TECHNOLOGIST: GAGAN Test Reason : AMS Blood Pressure : / mmHG Vent. Rate : 072 BPM Atrial Rate : 072 BPM P-R Int : 190 ms QRS Dur : 080 ms QT Int : 412 ms P-R-T Axes : 038 051 053 degrees QTc Int : 451 ms Normal sinus rhythm Normal ECG When compared with ECG of 07-FEB-2017 10:55, premature atrial complexes are no longer present Confirmed by Mohan Castellanos ([id number]) on 06/09/2018 4:24:30 PM Referred By: BARBRA Confirmed By:Mohan Luna
--- NOTE | 2018-06-09 15:54 | RADIOLOGY IMAGING REPORT ---
FACILITY: [facility] PATIENT NAME: Ian Goetz : 1940 MR: [id number] V: [id number] EXAM DATE: ORDERING PHYSICIAN: ANNIE BELLE TECHNOLOGIST: Location: [facility] Patient: Ian Goetz : 1940 Visit/Account:[id number] Date of Sevice: 06/09/2018 Examination: CHEST SINGLE AP Comparison: 05/12/2018 and earlier. History: Altered mental status. Findings: Cardiac and hilar contour is mildly enlarged. Mild vascular congestion. Infrahilar streaky density is favored to be atelectasis. No new or enlarging consolidation, nodule, or definite evidence of peribronchial inflammation. No pneumothorax or definite evidence of edema or effusion. Osseous st ructures are intact. IMPRESSION: Mild cardiac silhouette enlargement and vascular congestion. No other definite findings of acute card iopulmonary disease. Report Dictated By: Charlie Stark MD at 06/09/2018 3:48 PM Report E-Signed By: Charlie Stark MD at 06/09/2018 3:51 PM WSN:[id number]
[2018-06-09 15:55] LABS: INR 0.97
--- NOTE | 2018-06-09 16:08 | RADIOLOGY IMAGING REPORT ---
FACILITY: [facility] PATIENT NAME: Ian Goetz : 1940 MR: [id number] V: [id number] EXAM DATE: [id number] ORDERING PHYSICIAN: ANNIE BELLE TECHNOLOGIST: Location: [facility] [place] Patient: Ian Goetz : 1940 Visit/Account:[id number] Date of Sevice: 06/09/2018 EXAMINATION: CT Head Without Contrast 06/09/2018 3:27 PM HISTORY: Altered mental status TECHNIQUE: Contiguous axial images were obtained from the skull base to the vertex without intraven ous contrast. One of the following dose optimization techniques was utilized in the performance of this exam: Autom ated exposure control; adjustment of the mA and/or kV according to the patient's size; or use of an i terative reconstruction technique. Specific details can be referenced in the facility's radiology C T exam operational policy. COMPARISON STUDIES: 02/05/2017. FINDINGS: Ventricles / sulci / fissures: Mild ex vacuo asymmetry of the left lateral ventricle compared to the right, unchanged. Third ventricle is also somewhat prominent. No acute finding. Masses / hemorrhage / midline shift: See encarnacion-white differentiation section below White matter: Age-appropriate white matter hypodensities consistent with chronic small vessel ischemi c changes. Encarnacion-white differentiation: Extensive encephalomalacia on the left in the MCA distribution, unchanged . There are a few punctate densities along this (axial images 48 and 50) which were not present previ ously. Extra-axial spaces: negative Dural venous sinuses / arterial structures: Intracranial atherosclerotic calcifications. Skull base / calvarium: negative Visualized mastoid air cells / paranasal sinuses: negative IMPRESSION: 1. Large area of encephalomalacia in the left MCA distribution from old stroke. New punctate foci of density within this area. Calcification would be favored over hemorrhage given the chronicity of the stroke, although punctate hemorrhagic foci are hard to exclude completely. 2. No other potential acute finding. Age-related atrophy and chronic white matter changes. Report Dictated By: Nitin aMtias MD at 06/09/2018 3:52 PM Report E-Signed By: Nitin Matias MD at 06/09/2018 4:04 PM WSN:[id number]
[2018-06-09] MEDS ORDERED: NS(*) 0.9% 50 ML BAG 50 ML ONE (16:15)
[2018-06-09] MEDS ORDERED: IOPAMIDOL 76% 75 ML INFUS BTL 75 ML ONE (16:15)
[2018-06-09] MEDS ORDERED: FLUO-201 PO (16:30)
--- NOTE | 2018-06-09 17:30 | RADIOLOGY IMAGING REPORT ---
FACILITY: [facility] [place] PATIENT NAME: Ian Goetz : 1940 MR: [id number] V: [id number] EXAM DATE: [id number] ORDERING PHYSICIAN: ANNIE BELLE TECHNOLOGIST: Location: [facility] [place] Patient: Ian Goetz : 1940 Visit/Account:[id number] Date of Sevice: 06/09/2018 Examination: CTA of the head and neck Comparison: Noncontrast head CT earlier the same day. History: stroke. Altered mental status. Procedure: Arterial phase imaging of the head and neck with 75 mL intravenous Isovue 370. Reconstruct ion of the source data set includes multiplanar 2D in the sagittal and coronal planes, and 3D reconst ructed coronal slab MIP series. Percent stenosis is based on NASCET criteria. One of the following dose optimization techniques was utilized in the performance of this exam: Autom ated exposure control; adjustment of the mA and/or kV according to the patient's size; or use of an i terative reconstruction technique. Specific details can be referenced in the facility's radiology C T exam operational policy. Findings: Brain: More fully characterized on the earlier noncontrast CT. Left MCA territory encephalomalacia. N o mass effect or midline shift. Aortic arch: Variant anatomy with a common origin to the brachiocephalic artery and left common carot id artery. Atherosclerosis; arch vessel origins are widely patent. Right extracranial carotid system: Small amount of partially calcified plaque at the common carotid b ifurcation and extending into the proximal internal carotid artery. 2.0 cm distal to the common carot id bifurcation is a 2 mm long segment of approximately 80% luminal stenosis due to focal partially ca lcified plaque. The more distal internal carotid artery is otherwise unremarkable. Left extracranial carotid system: Small amount of partially calcified plaque at the common carotid bi furcation and the proximal external carotid artery. No luminal stenosis. Vertebral arteries: Multiple short segments of calcified plaque along the right vertebral artery but no associated luminal stenosis. Focal calcified plaque at the left vertebral artery origin likely res ults in at least moderate luminal stenosis. Intracranial internal carotid arteries: Moderate atherosclerosis. No stenosis. Anterior cerebral arteries: Negative. Anterior communicating artery is present. Middle cerebral arteries: The left MCA territorial branches are attenuated but patent, likely due to the prior MCA infarct. Right MCA is unremarkable. Vertebrobasilar system and posterior cerebral arteries: Mild] vertebral atherosclerosis. Basilar renetta ry forms normally. Basilar tip 4 mm enhancing aneurysm. Posterior cerebral arteries are unremarkable. Posterior communicating arteries are not visualized. The right PICA is not visualized. The left PICA is well developed. Dural venous sinuses: Limited evaluation due to the phase of enhancement. The superior sagittal sinus does enhance normally. Cervical spine: No vertebral body height loss or malalignment. Multilevel mild degenerative change. Paranasal sinus and orbits: Negative. Prevertebral soft tissues: Negative. Visualized upper chest: Negative. IMPRESSION: 1. Head and neck atherosclerosis. As further detailed above, this is most significant involving the p roximal right internal carotid artery where there is a short segment of approximately 80% luminal jaqui nosis. 2. The right PICA is not visualized; the left PICA is well-developed and this could be due to develop mental variation although correlation with any clinical evidence of a right PICA occlusion is recomme nded. 3. Basilar tip 4 mm aneurysm. Neurosurgery referral with CT follow-up is recommended. 4. Left MCA territory encephalomalacia. Results were discussed with Drs. Velaczo and Ismael at 06/09/2018 5:13 PM. Report Dictated By: Charlie Stark MD at 06/09/2018 4:56 PM Report E-Signed By: Charlie Stark MD at 06/09/2018 5:26 PM WSN:[id number]
--- NOTE | 2018-06-09 17:31 | RADIOLOGY IMAGING REPORT ---
[facility] PATIENT NAME: Ian Goetz : 1940 MR: [id number] V: [id number] EXAM DATE: [id number] ORDERING PHYSICIAN: ANNIE BELLE TECHNOLOGIST: Location: [facility] [place] Patient: Ian Goetz : 1940 Visit/Account:[id number] Date of Sevice: 06/09/2018 Examination: CTA of the head and neck Comparison: Noncontrast head CT earlier the same day. History: stroke. Altered mental status. Procedure: Arterial phase imaging of the head and neck with 75 mL intravenous Isovue 370. Reconstruct ion of the source data set includes multiplanar 2D in the sagittal and coronal planes, and 3D reconst ructed coronal slab MIP series. Percent stenosis is based on NASCET criteria. One of the following dose optimization techniques was utilized in the performance of this exam: Autom ated exposure control; adjustment of the mA and/or kV according to the patient's size; or use of an i terative reconstruction technique. Specific details can be referenced in the facility's radiology C T exam operational policy. Findings: Brain: More fully characterized on the earlier noncontrast CT. Left MCA territory encephalomalacia. N o mass effect or midline shift. Aortic arch: Variant anatomy with a common origin to the brachiocephalic artery and left common carot id artery. Atherosclerosis; arch vessel origins are widely patent. Right extracranial carotid system: Small amount of partially calcified plaque at the common carotid b ifurcation and extending into the proximal internal carotid artery. 2.0 cm distal to the common carot id bifurcation is a 2 mm long segment of approximately 80% luminal stenosis due to focal partially ca lcified plaque. The more distal internal carotid artery is otherwise unremarkable. Left extracranial carotid system: Small amount of partially calcified plaque at the common carotid bi furcation and the proximal external carotid artery. No luminal stenosis. Vertebral arteries: Multiple short segments of calcified plaque along the right vertebral artery but no associated luminal stenosis. Focal calcified plaque at the left vertebral artery origin likely res ults in at least moderate luminal stenosis. Intracranial internal carotid arteries: Moderate atherosclerosis. No stenosis. Anterior cerebral arteries: Negative. Anterior communicating artery is present. Middle cerebral arteries: The left MCA territorial branches are attenuated but patent, likely due to the prior MCA infarct. Right MCA is unremarkable. Vertebrobasilar system and posterior cerebral arteries: Mild] vertebral atherosclerosis. Basilar renetta ry forms normally. Basilar tip 4 mm enhancing aneurysm. Posterior cerebral arteries are unremarkable. Posterior communicating arteries are not visualized. The right PICA is not visualized. The left PICA is well developed. Dural venous sinuses: Limited evaluation due to the phase of enhancement. The superior sagittal sinus does enhance normally. Cervical spine: No vertebral body height loss or malalignment. Multilevel mild degenerative change. Paranasal sinus and orbits: Negative. Prevertebral soft tissues: Negative. Visualized upper chest: Negative. IMPRESSION: 1. Head and neck atherosclerosis. As further detailed above, this is most significant involving the p roximal right internal carotid artery where there is a short segment of approximately 80% luminal jaqui nosis. 2. The right PICA is not visualized; the left PICA is well-developed and this could be due to develop mental variation although correlation with any clinical evidence of a right PICA occlusion is recomme nded. 3. Basilar tip 4 mm aneurysm. Neurosurgery referral with CT follow-up is recommended. 4. Left MCA territory encephalomalacia. Results were discussed with Drs. Velazco and Ismael at 06/09/2018 5:13 PM. Report Dictated By: Charlie Stark MD at 06/09/2018 4:56 PM Report E-Signed By: Charlie Stark MD at 06/09/2018 5:26 PM WSN:[id number]
[2018-06-09 18:00] VITALS: BP 144/78
== END 2018-06-09 18:24 | disposition home or self-care (01) ==
LOC: ER 15:37
DX: R56.9 Unspecified convulsions (principal); R41.82 Altered mental status, unspecified
CPT/HCPCS: 36416; 70450; 70496; 70498; 71045; 82948; 84484; 85025; 85610; 85730; 93005; 99285; J7050; Q9967; 82040; 82247; 82310; 82374; 82435; 82565; 82947; 84075; 84132; 84155; 84295; 84450; 84460; 84520

== ENCOUNTER → 2018-06-09 | Outpatient (CLI) | payer MEDICARE ==
[2017-02-05 16:51] VITALS: BMI 24.5
[~2018-06-09] MED LIST changes: +ATOR-1 PO; +BACL-1 PO; +DOCU-202 PO; +FLUO20TA2 PO; +GLIM4TAB50 PO; +IBUP-136 PO; +LEV125 PO; +LIDO700A19 TP; +LOR5/325 PO; +PIOG15TA67 PO; +POLY17PO21 PO
== END ==
LOC: AMB 15:01
PROVIDERS: ATTEND Nurse Practitioner
DX: R40.4 Transient alteration of awareness (principal); I69.392 Facial weakness following cerebral infarction; R09.02 Hypoxemia
CPT/HCPCS: A0425; A0427

== ENCOUNTER 2018-10-14 11:15 | Outpatient (RCR) | payer MEDICARE ==
[2017-02-05 16:51] VITALS: BMI 24.5
--- NOTE | 2018-07-17 16:43 | PT INITIAL EVALUATION ---
MEDICAL DIAGNOSIS: strengthening TREATMENT DIAGNOSIS: same, altered gait, decreased balance, decreased transfers DATE OF ONSET: 08/26/15 SUBJECTIVE: Ian Goetz presents to physical therapy with chronic R hemiplegia with aphasia as a residual affect of a stroke that occurred in 2014. He presents to the clinic with his and his is able to answer our questions and present her concerns about what they continual struggle with functionally. Stanislav has been at this clinic before for physical therapy. He reports that 2 months ago he fell and broke two vertebrae's around L2 and has been receiving home health PT, OT, and nursing. She reports that home health would apply kinesiotape to his shoulder, walk in his house every once in a while, and have him move his legs around while sitting down. She also reports that approximately one month ago he had a seizure, which was scary while it happened; however, following the seizure, she reported that he was more alert and more able to respond to her questions. She reports that they were referred to a neurologist and everything checked out and they reported that they denied the anti-seizure medication due to the negative side effects. She reports that he has not had another seizure since. She reports that her difficulties included the following: decreased R weightbearing during walking and transfers, unable to walk around house since it takes two people to do so, and having his R leg stick into extension when he is sitting on the edge of the bed and is nervous that he will fall again as a result, He reports that his low back pain continues to be a problem and rates it to be 5/10 while sitting. He reports that sitting makes his back worse and laying flat makes his back pain better. He continues to utilize R AFO during transfers and ambulation and everything seems to be fitting him correctly and does not require any adjustments at this time. . Pain location is L2-3 central spinous process region. Pain scale is 5 on a ten point pain scale. REHAB PROBLEM LIST: Increased Pain Impaired Cognition Decreased ROM Impaired Bed Mobility Decreased Strength Impaired Transfers Decreased Endurance Decreased Balance Decreased Function Decreased ADL's Decreased Mobility Decreased Gait PREVIOUS MEDICAL HISTORY: See EMR OCCUPATION: Retired OBJECTIVE: Posture: He demonstrates forward head, increased thoracic kyphosis, decreased lumbar lordosis, and B rounded shoulders. ROM: L UE and L LE: WNL's and demonstrated normal end feel. R UE: 95% limited as compared to his L UE. R LE: 50% limited as compared to his L UE. Strength: L UE: 4+/5 to 5/5. R UE: 1/5 within shoulder, elbow, wrist. R hip flexion, abduction, adduction, extension, R knee flexion and extension (2/5), and R ankle PF/DF: 1/5 (felt contraction). AROM of L hip flexion, abduction, adduction, extension, L knee flexion and extension, and L ankle PF/DF: 4+/5 with no pain. Palpation: TTP: L2-3 central spinous process region Special Tests: LEFS: : 69% impairment Mobility: Bed mobility: Sitting to R sidelying Independent. Independent with sitting to L sidelying. Independent from L sidelying to supine position. Independent from supine position to R sidelying position. Independent from supine position to L sidelying position. Independent from L sidelying position to sitting at edge of mat. Able to sit at edge of mat without any difficulties. Calos with stand pivot transfer from wheelchair to/from bench. no assistance with sit to/from standing. no assistance required at R knee to prevent increased knee flexion. Sit to/from standing: minimal assistance with sitting to standing Gait: With gait, he demonstrates improvements with R LE weightbearing which results in increased L step length, increased R weight shift, increased velocity, improved posture, and improved balance. Balance: Will test in the future ASSESSMENT: Ian will benefit from skilled physical therapy addressing the listed impairments and trying to overcome the concerns of his so that he can function at the highest level possible. He and his were educated on sitting posture and ways to improve sitting posture along with improving standing posture and preventing further trunk lean and ways to overcome that. Short Term Goals 2 weeks: Pt and his will be independent with sitting and standing posture and be performing the ways to improve it at home independently. 5 weeks: Pt will demonstrate an improvement in LEFS from 69% (26/80) impairment to 35/80 or more to improve function and QOL. 10 weeks: Pt will be able to demonstrate full weightbearing on his R LE with all transfers with his so that they can reduce falls and improve function and QOL. 16 weeks: Pt will be able to ambulate with upright posture with his as compared to ambulating with two people only to improve function and overall QOL. Patient's Goals increased R weightbearing with transfers and decrease R knee extension when sitting on the bed PLAN: Patient to be seen for Strengthening/condition Range of Motion Spinal Stabilization Work Hardening/Cond Stretching Neuromuscular Re-ed Closed Chain Program Posture/Body mechanics Gait Trg/Balance Trg Home Exercise Program Therapeutic Activities 2x/Week for 4 Months If you have any questions, comments, or concerns about this report or plan, please contact me at . Thank you, Rodolfo Keller, PT, DPT MTDD
--- NOTE | 2018-07-17 17:32 | SPEECH INITIAL EVALUATION ---
[address] [address] SPEECH-LANGUAGE PATHOLOGY EVALUATION REPORT Patient Name: Ian Goetz Date of Evaluation: 07-17-2018 Patient : 1940, 78yr Clinician: Kristyn Del Rio M.S., CCC-HEAV[employer] EQUIPMENT PLUMBING SUPERVISOR; Marta Olivas, Teachers Aide Clinician Treatment Dx: Severe Expressive Aphasia BACKGROUND The patient is a 78 year old male who experienced a stroke on August 26, 2015. Mr. Goetz is wheel chair bound and currently lives at home with his . His expressive language is severely affected. He produces yes/no verbalizations intermittently combined with gesture in response to simple questions. Mr. Goetz can repeat verbalizations with a direct model and demonstrates use of 30 gestures as a mode of communication. He initiates use of low-tech AAC with assistance. LANGUAGE Expressive Language Mr. Goetz was has severely reduced verbal expression. He can produce yes/no combined with the appropriate gesture; however, his reports often contradiction with verbalization and gesture. Mr. Goetz currently uses a communication book to express basic wants/needs and participate in ADLs. Mr. Goetz was evaluated for speech using informal tasks paired with portions of the Multimodal Communication Screening Task. He demonstrated initiation of communicative modalities in 58% of opportunities and communicated through 1-2 symbol messages from a choice of gestures or a communication book. Mr. Goetz independently communicated through 1-symbol messages with 50% accuracy, increasing to 66% with moderate assist (e.g., repetition, verbal cue). He was unsuccessful combining 2 symbols or gestures to create a 2-word utterance unless provided moderate to maximum support levels. MOTOR SPEECH: Mr. Goetz was evaluated for speech using informal tasks paired with the Quick Assessment for Apraxia of Speech. He consistently demonstrated distorted and delayed vowels, as well as, groping behaviors for correct articulatory placement of consonants. Nonfunctional oral motor movements were observed, with oral apraxia (e.g., puckering lips) and increased difficulty with labial vs. lingual movements. Mr. Goetz required repeated cueing and direct visual models during these tasks. During the evaluation, Mr. Goetz was able to produce speech at the word level, but required maximum clinician support (e.g., phonemic cueing, multiple repetitions). Suspect that flaccid dysarthria further contributes to reduced speech intelligibility. He produced primarily vowels and made attempts to pair consonants with these during speech tasks of single speech sounds. Vowels: mild deficits with distorted and delayed quality. Consonants: Largely nonfunctional in isolation. Inconsistent productions were made with maximum placement cues in a 1-word communication target. Increased accuracy of production at the word level. Accuracy appeared to correlate with difficulty of sound production. Production, bilabials were relatively easier for him to produce vs. fricatives. SUMMARY Mr. Goetz presents with severely reduced expressive language. 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 Mr. Wilkerson communicative strengths at this time are picture identification and reading. Pt remained engaged and motivated throughout the evaluation, and demonstrated significantly higher cognitive level of functioning than his communication currently is supporting. RECOMMENDATIONS 1. ST 2x/12wk PROGNOSIS: Good. Pt has good family support PLAN OF CARE Short Term Goals 1. The patient will initiate a mode of communication (i.e., communication book, speech, gesture, etc.) in response to a statement or to answer functional questions with 95% accuracy given min assist. 2. The patient will utilize 40 gestures to communicate words/ideas with min assist. 3. The patient will increase overall intelligibility through accurate articulation and appropriate vocal loudness x30/session with mod visual/verbal assist in words or phrases Roll Slicing Machine Tender Goal The patient will increase multimodal communication with familiar communication partners, for social engagement and to communicate basic wants/needs. Thank you for this referral. Please call [phone] Kristyn Del Rio M.S., [employer] E[employer]MENT PLUMBING SUPERVISOR Marta Olivas, Teachers Aide Clinician JASPREET
--- NOTE | 2018-08-19 15:59 | PT PLAN OF CARE ---
Physician: Nikita Caraballo MD Patient is being seen: 2x/week Therapist: Rodolfo Keller, PT, DPT Medical Diagnosis: strengthening Treatment Diagnosis: same, altered gait, decreased balance, decreased transfers Date of Onset: 08/26/15 Date of Initial Evaluation: 07/17/18 Date patient was last seen: 08/19/18 Number of treatments: 10 Number of cancellations/No shows: 0 INTERVENTIONS: Strengthening/condition Range of Motion Spinal Stabilization Work Hardening/Cond Stretching Neuromuscular Re-ed Closed Chain Program Posture/Body mechanics Gait Trg/Balance Trg Home Exercise Program Therapeutic Activities GOALS: 2 weeks: Pt and his will be independent with sitting and standing posture and be performing the ways to improve it at home independently. 5 weeks: Pt will demonstrate an improvement in LEFS from 69% (26/80) impairment to 35/80 or more to improve function and QOL. 10 weeks: Pt will be able to demonstrate full weightbearing on his R LE with all transfers with his so that they can reduce falls and improve function and QOL. 16 weeks: Pt will be able to ambulate with upright posture with his as compared to ambulating with two people only to improve function and overall QOL. PATIENT'S GOAL: increased R weightbearing with transfers and decrease R knee extension when sitting on the bed Status of Patient's Goals: Progressing Patient Compliance: Good Prognosis: Fair Reasons for continuing therapy: This is a progress note for Ian Goetz. He reports that his back is feeling better and denies any pain. His reports that the transfer bar was allowing Ian to decreased weight bearing on his R LE during all transfers; however, when he uses the FWW with a R UE platform that he had increased weightbearing on his R LE. He did not demonstrate a significant change with his lower extremity functional scale; however, he has demonstrated a significant change with ambulation endurance and improved transfers. He has been demonstrating decreased L step length; however, he can increase the step lengths with maximum verbal cues. His transfers currently require CGA to Terrence X 1 (sit to/from standing). We will continue to increase L step lengths, increase weight bearing on R LE, increase endurance, increase gait mechanics, and improve function and QOL. Posture: He demonstrates forward head, increased thoracic kyphosis, decreased lumbar lordosis, and B rounded shoulders. ROM: L UE and L LE: WNL's and demonstrated normal end feel. R UE: 95% limited as compared to his L UE. R LE: 50% limited as compared to his L UE. Strength: L UE: 4+/5 to 5/5. R UE: 1/5 within shoulder, elbow, wrist. R hip flexion, abduction, adduction, extension, R knee flexion and extension (2/5), and R ankle PF/DF: 1/5 (felt contraction). AROM of L hip flexion, abduction, adduction, extension, L knee flexion and extension, and L ankle PF/DF: 4+/5 with no pain. Palpation: TTP: L2-3 central spinous process region Special Tests: LEFS: : 69% impairment Mobility: Bed mobility: Sitting to R sidelying Independent. Independent with sitting to L sidelying. Independent from L sidelying to supine position. Independent from supine position to R sidelying position. Independent from supine position to L sidelying position. Independent from L sidelying position to sitting at edge of mat. Able to sit at edge of mat without any difficulties. Terrence with stand pivot transfer from wheelchair to/from bench. CGA to minimal assistance with sit to/from standing. no assistance required at R knee to prevent increased knee flexion. Sit to/from standing: minimal assistance with sitting to standing If you have any questions, please contact me at [phone]. Thank you, Rodolfo Keller, PT, DPT MTDD
--- NOTE | 2018-09-04 10:39 | SLP PLAN OF CARE ---
SPEECH PATHOLOGY PROGRESS REPORT Progress Note Date: 09/02/18 Clinician: Kristyn Zuñiga MS, CCC-PORT PATROL OFFICER Patient: Ian Goetz : 1940 The patient has been attending ST at [facility] 2/wk since his most recent evaluation on 07/17/18. He attends scheduled visits regularly, and his spouse provides transportation assistance for all appointments. Spouse also assists with ADL and IADLs for the patient, and is very supportive in providing feedback for functional, therapeutic activities. The patients expressive language is severely affected, and he has experienced success with multimodal communication. He produces yes/no verbalizations intermittently combined with gesture in response to simple questions. Mr. Goetz can repeat verbalizations with a direct model and demonstrates use of 30 gestures as a mode of communication. He initiates use of low-tech AAC with assistance. CURRENT POC The patient has been working on the following short term goals: 1.The patient will initiate a mode of communication (i.e., communication book, speech, gesture, etc.) in response to a statement or to answer functional questions with 95% accuracy given min assist. 09-02-18: The pt initiates a mode of communication in response to statements or to answer questions with 90% accuracy with an average of min assist. Performance accuracy appears to have plateaued; however, task complexity has increased via dynamic modification to communication book icons, instruction in additional gestures, and incorporation of open-ended vs yes/no questions. The pt intermittently requires a heightened level of assistance (mod to max) to support initiation deficits. Will continue to address during the next reporting period. 2.Pt will utilize 40 gestures to communicate words/ideas with min assist. 09-02-18: Progressing. Pt can utilize 30-35 gestures to communicate words/ideas with min or mod assist. Improved spontaneity continues to be noted with gesture use. Novel gestures have also been incorporated into treatment activities. 3. The patient will increase overall intelligibility through accurate articulation and increased loudness. Pt will produce accurate articulation and appropriate vocal loudness x40 per session with mod verbal/visual assist in words and phrases. 09-02-18: Progressing. Pt demonstrates accurate articulation and appropriate vocal loudness 30x per session with mod assist. Increased emphasis has been placed on coordination of speech subsystems, including breath support, oral vs nasal respiration, phonation, and articulation. SUMMARY The patient is utilizing multiple modes of communication (gesture, speech, low tech AAC) to express wants and needs and to answer functional questions. The patient responds well to visual/verbal articulation models for speech sound productions and has increased his overall intelligibility. The patient continues to work on increasing vocal loudness through breath support and prompting. He has also begun to work on coordinating speech subsystems. The patient is developing increased independence when utilizing his low tech AAC communication book and requires mod assist navigating between pages. Use of the AAC outside of tx is intermittent, and deficits in initiation sometimes limit functional implementation of trained strategies outside the treatment room. The pt has indicated a preference for utilizing low tech AAC as a primary modality of communication. RECOMMENDATION In response to the patients progress, it is recommended ST continue at 2wk12 to address above POC. PROGNOSIS: Very Good. Pt is progressing toward his goals, has responded well to gradual increases in task complexity, has strong family support, and is motivated to work during tx sessions. Thank you for this referral. Please call [phone] Kristyn zuñiga M.S., [facility])-PORT PATROL OFFICER Physician Signature Date [*] MTDD
--- NOTE | 2018-09-23 17:19 | PT PLAN OF CARE ---
Physician: Nikita Caraballo MD Patient is being seen: 2x/week Therapist: Rodolfo Keller, PT, DPT Medical Diagnosis: strengthening Treatment Diagnosis: same, altered gait, decreased balance, decreased transfers Date of Onset: 08/26/15 Date of Initial Evaluation: 07/17/18 Date patient was last seen: 09/23/18 Number of treatments: 20 Number of cancellations/No shows: 0 INTERVENTIONS: Strengthening/condition Range of Motion Spinal Stabilization Work Hardening/Cond Stretching Neuromuscular Re-ed Closed Chain Program Posture/Body mechanics Gait Trg/Balance Trg Home Exercise Program Therapeutic Activities GOALS: 2 weeks: Pt and his will be independent with sitting and standing posture and be performing the ways to improve it at home independently. 5 weeks: Pt will demonstrate an improvement in LEFS from 69% (26/80) impairment to 35/80 or more to improve function and QOL. 10 weeks: Pt will be able to demonstrate full weightbearing on his R LE with all transfers with his so that they can reduce falls and improve function and QOL. 16 weeks: Pt will be able to ambulate with upright posture with his as compared to ambulating with two people only to improve function and overall QOL. PATIENT'S GOAL: increased R weightbearing with transfers and decrease R knee extension when sitting on the bed Status of Patient's Goals: Progressing Patient Compliance: Good Prognosis: Fair Reasons for continuing therapy: This is a progress note for Ian Goetz. He reports that he is doing well. He denies any back pain. His reports that he is not weightbearing on his right side when using the transfer pole and actually pulled down the transfer pole over the weekend; however, it did not result in a fall. He demonstrates improvements with decreased assistance required with his sit to/from standing as he can perform it independently; however, he demonstrates R sided weight bearing with transfers with his FWW and platform walker; however, his reports that he will never go away from the transfer pole even though the transfer demonstrates 100% weightbearing on R UE and LE with his FWW. Furthermore, he demonstrated minimal changes with his LEFS; however, he demonstrated significant improvement in his endurance to ambulating 160 feet without any sitting rest breaks. However, he continues to demonstrate a shorter L step length that does improve with max verbal cues. Moving forward we have been doing one day stretching (RUE and RLE along with B hip flexors) and endurance ther ex and the next day work on endurance, strength, and gait mechanics. Since he is demonstrating improvements we will continue to improve flexibility, strength, transfers, gait, and endurance. Posture: He demonstrates forward head, increased thoracic kyphosis, decreased lumbar lordosis, and B rounded shoulders. ROM: L UE and L LE: WNL's and demonstrated normal end feel. R UE: 95% limited as compared to his L UE. R LE: 50% limited as compared to his L UE. Strength: L UE: 4+/5 to 5/5. R UE: 1/5 within shoulder, elbow, wrist. R hip flexion, abduction, adduction, extension, R knee flexion and extension (2/5), and R ankle PF/DF: 1/5 (felt contraction). AROM of L hip flexion, abduction, adduction, extension, L knee flexion and extension, and L ankle PF/DF: 4+/5 with no pain. Palpation: TTP: L2-3 central spinous process region Special Tests: LEFS: 26/80: 69% impairment Mobility: Bed mobility: Sitting to R sidelying Independent. Independent with sitting to L sidelying. Independent from L sidelying to supine position. Independent from supine position to R sidelying position. Independent from supine position to L sidelying position. Independent from L sidelying position to sitting at edge of mat. Able to sit at edge of mat without any difficulties. Calos with stand pivot transfer from wheelchair to/from bench. CGA to minimal assistance with sit to/from standing. no assistance required at R knee to prevent increased knee flexion. Sit to/from standing: minimal assistance with sitting to standing If you have any questions, please contact me at [phone]. Thank you, Rodolfo Keller, PT, DPT MTDD
--- NOTE | 2018-10-09 12:57 | SLP PLAN OF CARE ---
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 He attends scheduled visits regularly, and his spouse provides transportation assistance for all appointments. Spouse also assists with ADL and IADLs, and is very supportive in providing feedback for functional, therapeutic activities. The patient has been working on the following short term goals: 1.The patient will initiate a mode of communication (i.e., communication book, speech, gesture, etc.) in response to a statement or to answer functional questions with 95% accuracy given min assist. 10-09-18: Discontinue/update. The pt initiates a mode of communication in response to statements or to answer questions with 90% accuracy with an average of min assist. Performance accuracy appears to have plateaued. Although goal was not met, excellent progress noted vs SOC. Will update goal and continue to increase task complexity for initiation of communication via dynamic modification to communication book icons, instruction in additional gestures, and incorporation of open-ended vs yes/no questions. Updated goal will now focus on accuracy of response versus simple initiation of communication modality. 2.Pt will utilize 40 gestures to communicate words/ideas with min assist. 10-09-18: Met/update. Pt demonstrates capacity for utilizing 40 gestures per session to communicate words/ideas with min. Improved spontaneity continues to be noted with gesture use. Novel gestures have also been incorporated into treatment activities. Will upgrade goal with focus heightening pt independence and minimizing quantity for gestural production. 3. Pt will produce accurate articulation and appropriate vocal loudness x40 per session with mod verbal/visual assist in words and phrases. 10-09-18: Met/update. Pt demonstrates accurate articulation and appropriate vocal loudness 40x per session with mod assist. Increased emphasis has been placed on coordination of speech subsystems, including breath support, oral vs nasal respiration, phonation, and articulation. Loudness is approaching normal limits, and will no longer be specifically targeted given level of progress. Emphasis has also been placed on apraxia of speech with Combined Aphasia and Apraxia of Speech Treatment (CAAST). Pt with spontaneous naming of objects and object use during most recent treatment encounter in response to CAAST interventions. UPDATED POC: 1. The patient will accurately respond to statements and functional questions using a diverse mode of communication (i.e., communication book, speech, gesture, etc.) with 80% accuracy given min assist. 2. Pt will utilize 25 gestures to communicate words/ideas without need for assistance. 3. Pt will produce accurate articulation of functional, 1-3 word phrases x40 per session with mod verbal/visual assist. SUMMARY The patients expressive language remains severely affected, but he has experienced success with multimodal communication. He produces yes/no verbalizations more consistently, with improved initiation to execute gestures in response to simple questions. Use of gestures often results in self-cueing for verbal output. THe pt responds well to visual/verbal articulation models for speech sound production, and can repeat verbalizations with a direct model. He also often verbalizes familiar words and phrases with initial phoneme cuing. The pt has recently been benefitting from incorporation of Combined Aphasia and Apraxia of Speech (CAAST) treatment interventions with improvements noted in verbal output. Pt with spontaneous naming of objects and object use during most recent treatment encounter in response to CAAST interventions. Vocal loudness is approaching normal limits with significant improvements in breath support. Loudness will no longer be specifically targeted. Pt continues to work on coordinating speech subsystems, but is often limited by motor apraxia. The pt initiates use of low-tech AAC to communicate biographical information, wants and needs, and personal preferences with increased independence. Use of the AAC outside of tx is intermittent, and deficits in initiation sometimes limit functional implementation of trained strategies outside the treatment room. RECOMMENDATION In response to the patients progress, it is recommended ST continue at 2wk12 to address deficits in expressive language, receptive language, and motor speech for improved functional interactions with familiar communication partners. PROGNOSIS: Very Good. Pt continues to make small, steady gains toward his goals, has responded well to gradual increases in task complexity, has strong family support, and is motivated to work during tx sessions. Thank you for this referral. Please call [phone] Kristyn zuñiga M.S., [facility])-ECOLOGICAL TECHNICAL OFFICER Physician Signature Date [*] MTDD
[~2018-10-14 11:15] MED LIST changes: +POLY17PO11 PO; -POLY17PO21 PO
== END 2018-10-15 ==
LOC: PT 11:15
PROVIDERS: ATTEND Family Medicine
DX: I69.320 Aphasia following cerebral infarction (principal); I69.359 Hemiplegia and hemiparesis following cerebral infarction affecting unspecified side; Z99.3 Dependence on wheelchair; R26.89 Other abnormalities of gait and mobility; M54.5 Low back pain
CPT/HCPCS: 97162

== ENCOUNTER 2019-01-13 11:15 | Outpatient (RCR) | payer MEDICARE ==
[2017-02-05 16:51] VITALS: BMI 24.5
--- NOTE | 2018-10-22 07:40 | PT PLAN OF CARE ---
Physician: Nikita Caraballo MD Patient is being seen: 2x/week Therapist: Rodolfo Keller, PT, DPT Medical Diagnosis: strengthening Treatment Diagnosis: same, altered gait, decreased balance, decreased transfers Date of Onset: 08/26/15 Date of Initial Evaluation: 07/17/18 Date patient was last seen: 10/21/18 Number of treatments: 26 Number of cancellations/No shows: 0 INTERVENTIONS: Strengthening/condition Range of Motion Spinal Stabilization Work Hardening/Cond Stretching Neuromuscular Re-ed Closed Chain Program Posture/Body mechanics Gait Trg/Balance Trg Home Exercise Program Therapeutic Activities GOALS: 2 weeks: Pt and his will be independent with sitting and standing posture and be performing the ways to improve it at home independently. 5 weeks: Pt will demonstrate an improvement in LEFS from 69% (26/80) impairment to 35/80 or more to improve function and QOL. 10 weeks: Pt will be able to demonstrate full weightbearing on his R LE with all transfers with his so that they can reduce falls and improve function and QOL. 16 weeks: Pt will be able to ambulate with upright posture with his as compared to ambulating with two people only to improve function and overall QOL. PATIENT'S GOAL: increased R weightbearing with transfers and decrease R knee extension when sitting on the bed Status of Patient's Goals: Progressing Patient Compliance: Good Prognosis: Fair Reasons for continuing therapy: This is a progress note for Ian Goetz. He reports that he is doing well. He reports that he continues to have low back pain and rates it to be 5/10. His reports that he continues to off load his R LE during transfers with the transfer pole. Furthermore, his reports continued effort to work at the sink by performing squats and standing balance activities. He demonstrates significant improvements with his ambulation endurance as the previous plan of care he required at least 1-2 sitting breaks to ambulation 171 feet; however, today, he was able to ambulate 171 feet without a sitting rest break, which is a significant improvement. Furthermore, he is demonstrating increased L step length; however, he continues to required mod to max verbal cues in order to do so. He continues to demonstrate increased standing balance with equal weight distributed from his L LE to his R LE. Furthermore, he can perform sit to/from standing transfers without any assistance; however, without any UE it requires him to have Terrence X 1. We will continue to address gait mechanics along with posture, balance, increased weightbearing techniques to improve R LE support at home with transfers, and endurance. Posture: He demonstrates forward head, increased thoracic kyphosis, decreased lumbar lordosis, and B rounded shoulders. ROM: L UE and L LE: WNL's and demonstrated normal end feel. R UE: 95% limited as compared to his L UE. R LE: 50% limited as compared to his L UE. Strength: L UE: 4+/5 to 5/5. R UE: 1/5 within shoulder, elbow, wrist. R hip flexion, abduction, adduction, extension, R knee flexion and extension (2/5), and R ankle PF/DF: 1/5 (felt contraction). AROM of L hip flexion, abduction, adduction, extension, L knee flexion and extension, and L ankle PF/DF: 4+/5 with no pain. Palpation: TTP: L2-3 central spinous process region Special Tests: LEFS: 26/80: 69% impairment; 5 sit to/from standing took 50 seconds. Mobility: Bed mobility: Sitting to R sidelying Independent. Independent with sitting to L sidelying. Independent from L sidelying to supine position. Independent from supine position to R sidelying position. Independent from supine position to L sidelying position. Independent from L sidelying position to sitting at edge of mat. Able to sit at edge of mat without any difficulties. Terrence with stand pivot transfer from wheelchair to/from bench. CGA to minimal assistance with sit to/from standing. no assistance required at R knee to prevent increased knee flexion. Sit to/from standing: independent If you have any questions, please contact me at [phone]. Thank you, Rodolfo Keller, PT, DPT MTDD
--- NOTE | 2018-11-20 14:51 | SLP PLAN OF CARE ---
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 He attends scheduled visits regularly, and his spouse provides transportation assistance for all appointments. Spouse also assists with ADL and IADLs, and is very supportive in providing feedback for functional, therapeutic activities. The patient has been working on the following short term goals: 1. The patient will accurately respond to statements and functional questions using a diverse mode of communication (i.e., communication book, speech, gesture, etc.) with 80% accuracy given min assist. 11-20-18: MET. The pt accurately responds to statements and functional questions using a diverse mode of communication with 80% accuracy, min cues. Will upgrade goal to reflect progress, and will continue to increase task complexity for initiation of communication via dynamic modification to communication book icons, instruction in additional gestures, and incorporation of open-ended vs yes/no questions. 2. Pt will utilize 25 gestures to communicate words/ideas without need for assistance. 11-20-18: Progressing. Pt utilizes an average of 15-20 gestures without need for assistance, increasing to 30+ with min cues. Improved spontaneity continues to be noted with gesture use, intermittently resulting in self-cueing for verbal output. Novel gestures have been incorporated into treatment activities. Will continue to focus on heightening pt independence. Limiting factor continues to be generalized lack of initiation to perform tasks. 3. Pt will produce accurate articulation of functional, 1-3 word phrases x30 per session with mod verbal/visual assist. 11-20-18: Progressing / maintaining. Pt produces accurate articulation of functional, 2-3 word phrases x30 per session with mod to min verbal/visual assist. Pt also often independently verbalizes single words in response to familiar stimuli. Pt cont to rely on initial phoneme cueing for initiation of verbal output during majority of attempts secondary to severity of apraxia of speech. Apraxia of speech has been targeted using Combined Aphasia and Apraxia of Speech Treatment (CAAST) techniques. UPDATED POC: 1. The patient will accurately respond to statements and functional questions using a diverse mode of communication (i.e., communication book, speech, gesture, etc.) with 90% accuracy given min assist. 2. The patient will utilize 25 gestures to communicate words/ideas without need for assistance. 3. The patient will produce accurate articulation of functional, 1-3 word phrases x30 per session with mod verbal/visual assist. SUMMARY The patients expressive language remains severely affected, but he has experienced success with multimodal communication. He produces yes/no verbalizations more consistently, with improved initiation to execute gestures in response to simple questions. Use of gestures often results in self-cueing for verbal output. Mr. Goetz responds well to visual/verbal articulation models for speech sound production, and can repeat verbalizations with a direct model. He has been benefitting from incorporation of Combined Aphasia and Apraxia of Speech (CAAST) treatment interventions with improvements noted in verbal output and spontaneous naming of objects / object use in response to familiar stimuli. Script-based apraxia interventions have also been initiated to improve response to conversational pleasantries. The pt initiates use of low- tech AAC to communicate biographical information, wants and needs, and personal preferences with increased independence. Use of the AAC outside of tx is intermittent, and deficits in initiation sometimes limit functional implementation of trained strategies outside the treatment room. RECOMMENDATION In response to the patients progress, it is recommended ST continue at 2wk12 to address deficits in expressive language, receptive language, and motor speech for improved functional interactions with familiar communication partners. The patient should continue to progress with updated plan of care. PROGNOSIS: Very Good. Pt continues to make small, steady gains toward his goals, has responded well to gradual increases in task complexity, has strong family support, and is motivated to work during tx sessions. Thank you for referring this patient to [facility], Speech- Language Pathology. Please call [phone] to contact the DEVELOPMENT EDITOR. Kristyn zuñiga M.S., [facility]-DEVELOPMENT EDITOR Physician Signature Date [*] MTDD
--- NOTE | 2018-11-27 16:01 | PT PLAN OF CARE ---
Physician: Nikita Caraballo MD Patient is being seen: 2x/week Therapist: Rodolfo Keller, PT, DPT Medical Diagnosis: strengthening Treatment Diagnosis: same, altered gait, decreased balance, decreased transfers Date of Onset: 08/26/15 Date of Initial Evaluation: 07/17/18 Date patient was last seen: 11/27/18 Number of treatments: 36 Number of cancellations/No shows: 0 INTERVENTIONS: Strengthening/condition Range of Motion Spinal Stabilization Work Hardening/Cond Stretching Neuromuscular Re-ed Closed Chain Program Posture/Body mechanics Gait Trg/Balance Trg Home Exercise Program Therapeutic Activities GOALS: 2 weeks: Pt and his will be independent with sitting and standing posture and be performing the ways to improve it at home independently. 5 weeks: Pt will demonstrate an improvement in LEFS from 69% (26/80) impairment to 35/80 or more to improve function and QOL. 10 weeks: Pt will be able to demonstrate full weightbearing on his R LE with all transfers with his so that they can reduce falls and improve function and QOL. 16 weeks: Pt will be able to ambulate with upright posture with his as compared to ambulating with two people only to improve function and overall QOL. PATIENT'S GOAL: increased R weightbearing with transfers and decrease R knee extension when sitting on the bed Status of Patient's Goals: Progressing Patient Compliance: Good Prognosis: Fair Reasons for continuing therapy: This is a progress note for Ian Goetz. He reports that he is doing well. He reports his back pain to be 4/10. His reports that he continues to decrease weight on his R side with transfers at home. They deny any recent falls at home. He demonstrates improvements with functional endurance as he can ambulate one more lap than he could the last time we did a progress note. He demonstrates significant improvements with increased L step length, which means that he is more willing to weight bear on his R LE during ambulation. He has improved with his sit to/from standing from Terrence to CGA to SBA. He has increased standing endurance to 2 minutes with increased weightbearing on his R LE. We will continue to improve ambulation endurance, functional strength, and increased weightbearing on his R LE. Posture: He demonstrates forward head, increased thoracic kyphosis, decreased lumbar lordosis, and B rounded shoulders. ROM: L UE and L LE: WNL's and demonstrated normal end feel. R UE: 95% limited as compared to his L UE. R LE: 50% limited as compared to his L UE. Strength: L UE: 4+/5 to 5/5. R UE: 1/5 within shoulder, elbow, wrist. R hip flexion, abduction, adduction, extension, R knee flexion and extension (2/5), and R ankle PF/DF: 1/5 (felt contraction). AROM of L hip flexion, abduction, adduction, extension, L knee flexion and extension, and L ankle PF/DF: 4+/5 with no pain. Palpation: TTP: L2-3 central spinous process region Special Tests: LEFS: : 69% impairment; 5 sit to/from standing took 48 seconds. Mobility: Bed mobility: Sitting to R sidelying Independent. Independent with sitting to L sidelying. Independent from L sidelying to supine position. Independent from supine position to R sidelying position. Independent from supine position to L sidelying position. Independent from L sidelying position to sitting at edge of mat. Able to sit at edge of mat without any difficulties. Terrence with stand pivot transfer from wheelchair to/from bench. SBA with sit to/from standing. no assistance required at R knee to prevent increased knee flexion. Physician Signature DATE If you have any questions, please contact me at [phone]. Thank you, Rodolfo Keller, PT, DPT JASPREET
--- NOTE | 2019-01-01 17:27 | SLP PLAN OF CARE ---
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 He attends scheduled visits regularly, with two appointments missed due to illness. Spouse continues to provide transportation for all appointments, assists with ADL and IADLs, and is very supportive in providing feedback for functional, therapeutic activities. The patient has been working on the following short term goals: 1. The patient will accurately respond to statements and functional questions using a diverse mode of communication (i.e., communication book, speech, gesture, etc.) with 90% accuracy given min assist. 01-01-19: Progressing. The pt accurately responds to statements and functional questions using a diverse mode of communication with 85-90% accuracy, mod graded to min cues. Pt has responded well to increased task via ongoing, dynamic modification to communication book icons, instruction in additional gestures, and incorporation of open-ended vs yes/no questions. Initiation to request clarification during instances of communicative breakdowns has improved this reporting period. 2. Pt will utilize 25 gestures to communicate words/ideas without need for assistance. 01-01-19: Progressing. Pt utilizes an average of 20 gestures without need for assistance, increasing to 30+ with min cues. Improved spontaneity continues to be noted with gesture use, intermittently resulting in self-cueing for verbal output. Novel gestures have been incorporated into treatment activities. Will continue to focus on heightening pt independence. Limiting factor continues to be generalized lack of initiation to perform tasks. Pt benefits from reminders to maintain hand positioning on table to support gestural initiation and reduce time needed for initiation of movement. 3. Pt will produce accurate articulation of functional, 1-3 word phrases x30 per session with mod verbal/visual assist. 01-01-19: Progressing / maintaining. Pt produces accurate articulation of functional, 2-3 word phrases with focus on verb+noun production x30 per session with mod or min verbal/visual assist. Pt also often independently verbalizes single words in response to familiar stimuli. Pt cont to rely on initial phoneme cueing for initiation of verbal output during majority of attempts secondary to severity of apraxia of speech. Apraxia of speech has been targeted using Combined Aphasia and Apraxia of Speech Treatment (CAAST) techniques. Pt benefits from MANAGER CARE model of initial phoneme placement and lead-in phrasing to improve response automaticity. Pt intermittently perseverative on prior stimuli, but easily redirected with model for correct articulatory placement. Continue POC: 1. The patient will accurately respond to statements and functional questions using a diverse mode of communication (i.e., communication book, speech, gesture, etc.) with 90% accuracy given min assist. 2. Pt will utilize 25 gestures to communicate words/ideas without need for assistance. 3. Pt will produce accurate articulation of functional, 1-3 word phrases x30 per session with mod verbal/visual assist. SUMMARY The patients expressive language remains severely affected, but he has experienced success with multimodal communication. He exhibits improved initiation to execute gestures in response to simple questions, verbalize responses to y/n questions, and refer to AAC book for augmented communication. Use of gestures often results in self-cueing for verbal output. Mr. Goetz responds well to visual/verbal articulation models for speech sound production, and can repeat verbalizations with a direct model. He has been benefitting from incorporation of Combined Aphasia and Apraxia of Speech (CAAST) treatment interventions with improvements noted in verbal output and spontaneous naming of objects / object use in response to familiar stimuli. The pt initiates use of low-tech AAC to communicate biographical information, wants and needs, and personal preferences with increased independence. Use of the AAC outside of tx is intermittent, and deficits in initiation sometimes limit functional implementation of trained strategies outside the treatment room. RECOMMENDATION In response to the patients progress, it is recommended ST continue at 2wk12 to address deficits in expressive language, receptive language, and motor speech for improved functional interactions with familiar communication partners. The patient should continue to progress with updated plan of care. PROGNOSIS: Good. Pt continues to make small, steady gains toward his goals, has responded well to gradual increases in task complexity, has strong family support, and is motivated to work during tx sessions. Thank you for referring this patient to [facility], Speech- Language Pathology. Please call [phone] to contact the MANAGER CARE. Kristyn zuñiga M.S., CCC-MANAGER CARE Physician Signature Date [*] MTDD
--- NOTE | 2019-01-07 08:33 | PT PLAN OF CARE ---
Physician: Nikita Caraballo MD Patient is being seen: 2x/week Therapist: Rodolfo Keller, PT, DPT Medical Diagnosis: strengthening Treatment Diagnosis: same, altered gait, decreased balance, decreased transfers Date of Onset: 08/26/15 Date of Initial Evaluation: 07/17/18 Date patient was last seen: 01/06/19 Number of treatments: 46 Number of cancellations/No shows: 1 INTERVENTIONS: Strengthening/condition Range of Motion Spinal Stabilization Work Hardening/Cond Stretching Neuromuscular Re-ed Closed Chain Program Posture/Body mechanics Gait Trg/Balance Trg Home Exercise Program Therapeutic Activities GOALS: 2 weeks: Pt and his will be independent with sitting and standing posture and be performing the ways to improve it at home independently. 5 weeks: Pt will demonstrate an improvement in LEFS from 69% (26/80) impairment to 35/80 or more to improve function and QOL. 10 weeks: Pt will be able to demonstrate full weightbearing on his R LE with all transfers with his so that they can reduce falls and improve function and QOL. 16 weeks: Pt will be able to ambulate with upright posture with his as compared to ambulating with two people only to improve function and overall QOL. PATIENT'S GOAL: increased R weightbearing with transfers and decrease R knee extension when sitting on the bed Status of Patient's Goals: Progressing Patient Compliance: Good Prognosis: Fair Reasons for continuing therapy: This is a progress note for Ian Goetz. He reports that he is doing well. He reports that he continues to have back pain and rates it to be 4/10. His reports that his blood sugar has been in the 200's and he has been lethargic recently. He continues to demonstrate improvements with endurance during ambulation; however, he continues to lack R weight shift, which would increase L step length, which we will continue to work on. He continues to progress with sit to/from standing transfers as he was able to do it independently without B UE support, which is a significant improvement. He also continues to progress with standing balance endurance; however, he continues to struggle with upright posture probably due to sitting so much of his day as his is unable to ambulate with him due to fall risk. We will continue to improve transfers, endurance, balance, strength, and gait mechanics. Posture: He demonstrates forward head, increased thoracic kyphosis, decreased lumbar lordosis, and B rounded shoulders. ROM: L UE and L LE: WNL's and demonstrated normal end feel. R UE: 95% limited as compared to his L UE. R LE: 50% limited as compared to his L UE. Strength: L UE: 4+/5 to 5/5. R UE: 1/5 within shoulder, elbow, wrist. R hip flexion, abduction, adduction, extension, R knee flexion and extension (2/5), and R ankle PF/DF: 1/5 (felt contraction). AROM of L hip flexion, abduction, adduction, extension, L knee flexion and extension, and L ankle PF/DF: 4+/5 with no pain. Palpation: TTP: L2-3 central spinous process region Special Tests: LEFS: /80: 69% impairment; 5 sit to/from standing took 48 seconds. Mobility: Bed mobility: Sitting to R sidelying Independent. Independent with sitting to L sidelying. Independent from L sidelying to supine position. Independent from supine position to R sidelying position. Independent from supine position to L sidelying position. Independent from L sidelying position to sitting at edge of mat. Able to sit at edge of mat without any difficulties. Calos with stand pivot transfer from wheelchair to/from bench. SBA with sit to/from standing. no assistance required at R knee to prevent increased knee flexion. Physician Signature DATE If you have any questions, please contact me at [phone]. Thank you, Rodolfo Keller, PT, DPT JASPREET
== END 2019-01-14 ==
LOC: PT 11:15
PROVIDERS: ATTEND Family Medicine
DX: I69.320 Aphasia following cerebral infarction (principal); I69.359 Hemiplegia and hemiparesis following cerebral infarction affecting unspecified side; Z99.3 Dependence on wheelchair; R26.89 Other abnormalities of gait and mobility; M54.5 Low back pain
CPT/HCPCS: 97161

== ENCOUNTER → 2019-04-08 | Outpatient (REF) | payer MEDICARE ==
[2017-02-05 16:51] VITALS: BMI 24.5
== END ==
LOC: ZZSENDIN 14:00
PROVIDERS: ATTEND Family Medicine
DX: R06.2 Wheezing (principal); R60.1 Generalized edema
CPT/HCPCS: 83880

== ENCOUNTER 2019-04-09 11:15 | Outpatient (RCR) | payer MEDICARE ==
[2017-02-05 16:51] VITALS: BMI 24.5
--- NOTE | 2019-01-15 15:02 | SLP PLAN OF CARE ---
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 A plan of care update was completed on 01/01/19, with 4 subsequent treatment encounters since this date. A new plan of care update is being completed for billing purposes. The pt regularly attends scheduled appointments with no missed visits this reporting period. Spouse continues to provide transportation for all appointments, assists with ADL and IADLs, and is very supportive in providing feedback for functional, therapeutic activities. The pt experienced a period of elevated blood sugar levels during the week of 01/06- 01/10/19. This coincided with increased lethargy, reduced task initiation, and PT report of coughing with thin liquid intake. Symptoms appear to have largely resolved with management of blood sugars. Swallow status was screened with water test on 01-13, no overt indicators of aspiration observed. The patient has been working on the following short term goals: 1. The patient will accurately respond to statements and functional questions using a diverse mode of communication (i.e., communication book, speech, gesture, etc.) with 90% accuracy given min assist. 01-15-19: Progressing. The pt responds to statements and functional questions using a diverse mode of communication with 85-90% accuracy, mod graded to min cues. Pt has responded well to increased task complexity via ongoing, dynamic modification to communication book icons, instruction in additional gestures, and incorporation of open-ended vs yes/no questions. Pt also benefits from pairing verbal prompts with written cue to promote comprehension during discourse. Initiation to request clarification during instances of communicative breakdowns continues to improve. 2. Pt will utilize 25 gestures to communicate words/ideas without need for assistance. 01-15-19: Progressing. Pt utilizes an average of 10-15 gestures without need for assistance, increasing to 30+ with min cues. Some regression noted vs prior plan of care update. This appears reflective of issues with blood sugar management, increased lethargy, and decreased initiation across 2 out of 4 consecutive treatment encounters. Use of gestures continues to intermittently result in self-cueing for verbal output. Pt benefits from reminders to maintain hand positioning on table to support gestural initiation and to reduce time needed for execution of movement. 3. Pt will produce accurate articulation of functional, 1-3 word phrases x30 per session with mod verbal/visual assist. 01-15-: Progressing / maintaining. Pt produces accurate articulation of functional, 2-3 word phrases with focus on verb+noun production x30 per session with mod or min verbal/visual assist. Pt also often independently verbalizes single words in response to familiar stimuli. Pt cont to rely on initial phoneme cueing for initiation of verbal output during majority of attempts secondary to severity of apraxia of speech. Apraxia of speech has been targeted using Combined Aphasia and Apraxia of Speech Treatment (CAAST) techniques. Pt benefits from LEAD CASE MANAGER model of initial phoneme placement and lead-in phrasing to improve response automaticity. Pt intermittently perseverative on prior stimuli, but redirected with model for correct articulatory placement. Continue POC: 1. The patient will accurately respond to statements and functional questions using a diverse mode of communication (i.e., communication book, speech, gesture, etc.) with 90% accuracy given min assist. 2. Pt will utilize 25 gestures to communicate words/ideas without need for assistance. 3. Pt will produce accurate articulation of functional, 1-3 word phrases x30 per session with mod verbal/visual assist. SUMMARY The patients expressive language remains severely affected, but he has experienced success with multimodal communication. He exhibits improved initiation to execute gestures in response to simple questions, verbalize responses to y/n questions, and refer to AAC book for augmented communication. Use of gestures often results in self-cueing for verbal output. Mr. Goetz responds well to visual/verbal articulation models for speech sound production, and can repeat verbalizations with a direct model. He has been benefitting from incorporation of Combined Aphasia and Apraxia of Speech (CAAST) treatment interventions with improvements noted in verbal output and spontaneous naming of objects / object use in response to familiar stimuli. The pt initiates use of low-tech AAC to communicate biographical information, wants and needs, and personal preferences with increased independence. Use of the AAC outside of tx is intermittent, and deficits in initiation sometimes limit functional implementation of trained strategies outside the treatment room. Pt also requires high level of wait-time to initiate multi-modal response, but is often successful when allowed ample time frame. Brief setback was observed this reporting period in response to elevated blood sugar levels. Symptoms appear to have resolved, coinciding with medical management. RECOMMENDATION In response to the patients progress, it is recommended ST continue at 2wk12 to address deficits in expressive language, receptive language, and motor speech for improved functional interactions with familiar communication partners. The patient should continue to progress with updated plan of care. PROGNOSIS: Good. Pt continues to make small, steady gains toward his goals, has responded well to gradual increases in task complexity, has strong family support, and is motivated to work during tx sessions. Thank you for referring this patient to [facility], Speech- Language Pathology. Please call [phone] to contact the LEAD CASE MANAGER. Kristyn zuñiga M.S., [facility]-LEAD CASE MANAGER Physician Signature Date [*] MTDD
--- NOTE | 2019-01-16 09:20 | PT PLAN OF CARE ---
Physician: Nikita Caraballo MD Patient is being seen: 2x/week Therapist: Rodolfo Keller, PT, DPT Medical Diagnosis: strengthening Treatment Diagnosis: same, altered gait, decreased balance, decreased transfers Date of Onset: 08/26/15 Date of Initial Evaluation: 07/17/18 Date patient was last seen: 01/15/19 Number of treatments: 49 Number of cancellations/No shows:0 INTERVENTIONS: Strengthening/condition Range of Motion Spinal Stabilization Work Hardening/Cond Stretching Neuromuscular Re-ed Closed Chain Program Posture/Body mechanics Gait Trg/Balance Trg Home Exercise Program Therapeutic Activities GOALS: 2 weeks: Pt and his will be independent with sitting and standing posture and be performing the ways to improve it at home independently. 5 weeks: Pt will demonstrate an improvement in LEFS from 69% (26/80) impairment to 35/80 or more to improve function and QOL. 10 weeks: Pt will be able to demonstrate full weightbearing on his R LE with all transfers with his so that they can reduce falls and improve function and QOL. 16 weeks: Pt will be able to ambulate with upright posture with his as compared to ambulating with two people only to improve function and overall QOL. PATIENT'S GOAL: increased R weightbearing with transfers and decrease R knee extension when sitting on the bed Status of Patient's Goals: Progressing Patient Compliance: Good Prognosis: Fair Reasons for continuing therapy: He chart dropped after 3 sessions following the last POC; therefore, not much has changed in that time. This is a progress note for Ian Coloradoulkner. He reports that he is doing well. He reports that he continues to have back pain and rates it to be 4/10. His reports that his blood sugar is getting better and feels like he is more alert and transfers and moves better when it is lower. He continues to demonstrate improvements with endurance during ambulation; however, he continues to lack R weight shift, which would increase L step length, which we will continue to work on. He continues to progress with sit to/from standing transfers as he was able to do it independently without B UE support, which is a significant improvement. He also continues to progress with standing balance endurance; however, he continues to struggle with upright posture probably due to sitting so much of his day as his is unable to ambulate with him due to fall risk. We will continue to improve transfers, endurance, balance, strength, and gait mechanics. Posture: He demonstrates forward head, increased thoracic kyphosis, decreased lumbar lordosis, and B rounded shoulders. ROM: L UE and L LE: WNL's and demonstrated normal end feel. R UE: 95% limited as compared to his L UE. R LE: 50% limited as compared to his L UE. Strength: L UE: 4+/5 to 5/5. R UE: 1/5 within shoulder, elbow, wrist. R hip flexion, abduction, adduction, extension, R knee flexion and extension (2/5), and R ankle PF/DF: 1/5 (felt contraction). AROM of L hip flexion, abduction, adduction, extension, L knee flexion and extension, and L ankle PF/DF: 4+/5 with no pain. Palpation: TTP: L2-3 central spinous process region Special Tests: LEFS: 26/80: 69% impairment; 5 sit to/from standing took 48 seconds. Mobility: Bed mobility: Sitting to R sidelying Independent. Independent with sitting to L sidelying. Independent from L sidelying to supine position. Independent from supine position to R sidelying position. Independent from supine position to L sidelying position. Independent from L sidelying position to sitting at edge of mat. Able to sit at edge of mat without any difficulties. Calos with stand pivot transfer from wheelchair to/from bench. SBA with sit to/from standing. no assistance required at R knee to prevent increased knee flexion. Physician Signature DATE If you have any questions, please contact me at [phone]. Thank you, Rodolfo Keller, PT, DPT JASPREET
--- NOTE | 2019-02-19 16:44 | SLP PLAN OF CARE ---
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 The pt continues to regularly attend scheduled appointments with no missed visits this reporting period. Spouse provides transportation for all appointments, assists with ADL and IADLs, and is very supportive in providing feedback for functional, therapeutic activities. Last reporting period, the pt experienced a period of elevated blood sugar levels with a coinciding increase in lethargy and reduced task initiation. Symptoms appear to have largely resolved with successful management of blood sugars. The patient has been working on the following short term goals: 1. The patient will accurately respond to statements and functional questions using a diverse mode of communication (i.e., communication book, speech, gesture, etc.) with 90% accuracy given min assist. 02-19-19: Progressing. The pt responds to statements and functional questions using a diverse mode of communication with 83% accuracy when provided with min assist. Pt primarily relies on nonverbal communication during participation in functional conversations (facial expressions, gestures, AAC book). Initiation to request clarification during instances of communicative breakdowns continues to improve. Pt utilizes facial expressions to independently communicate confusion, humor, and gratitude. 2. Pt will utilize 25 gestures to communicate words/ideas without need for assistance. 02-19-19: Plateau in progress. Pt utilizes an average of 10 gestures without need for assistance, increasing to 30+ with min cues. Use of gestures continues to intermittently result in self-cueing for verbal output. Pt benefits from reminders to maintain hand positioning on table to support gestural initiation and to reduce time needed for execution of movement. Goal will be modified to more specifically emphasize a targeted group of 15, highly relevant, patient- centered gestures. Ongoing focus will be placed on increasing independent initiation for gestural communication. 3. Pt will produce accurate articulation of functional, 1-3 word phrases x30 per session with mod verbal/visual assist. 02-19-19: Progressing / maintaining. Pt approximates articulation of functional, 2-3 word phrases with focus on verb+noun or single word (noun) production x30 per session with mod or min verbal/visual assist. Pt benefits from access to visual model of verbal production, provision of initial phoneme placement, and provision of lead-in phrasing to improve response automaticity. Pt intermittently perseverates on prior stimuli, but is easily redirected with model for correct articulatory placement. Updated POC: 1. The patient will accurately respond to statements and functional questions using a diverse mode of communication (i.e., communication book, speech, gesture, etc.) with 90% accuracy given min assist. 2. Pt will utilize 15 gestures to communicate words/ideas without need for assistance. (updated 02/19/19) 3. Pt will produce accurate articulation of functional, 1-3 word phrases x30 per session with mod verbal/visual assist. SUMMARY The patient continues to make progress with functional, multimodal communication and motor speech production. He exhibits improved initiation to execute gestures in response to simple questions, verbalize responses to y/n questions, and to navigate between pages of AAC book. The patients progress has resulted in heightened participation in daily decision making, simple conversations, communication of biographical information, and communication of fundamental wants/needs. RECOMMENDATION In response to the patients progress, it is recommended ST continue at 2wk12 to address deficits in expressive language, receptive language, and motor speech for improved functional interactions with familiar communication partners. The patient should continue to progress with updated plan of care. PROGNOSIS: Good. Pt continues to make small, steady gains toward his goals, has strong family support, and is motivated to participate. [place] you [place] [facility] [place]. Please call [phone] to contact the AERONAUTICAL DRAFTER. Kristyn zuñiga M.S., [facility]-AERONAUTICAL DRAFTER Physician Signature Date [*] MTDD
--- NOTE | 2019-02-26 07:35 | PT PLAN OF CARE ---
Physician: Nikita Caraballo MD Patient is being seen: 2x/week Therapist: Rodolfo Keller, PT, DPT Medical Diagnosis: strengthening Treatment Diagnosis: same, altered gait, decreased balance, decreased transfers Date of Onset: 08/26/15 Date of Initial Evaluation: 07/17/18 Date patient was last seen: 02/24/19 Number of treatments: 60 Number of cancellations/No shows: 0 INTERVENTIONS: Strengthening/condition Range of Motion Spinal Stabilization Work Hardening/Cond Stretching Neuromuscular Re-ed Closed Chain Program Posture/Body mechanics Gait Trg/Balance Trg Home Exercise Program Therapeutic Activities GOALS: 2 weeks: Pt and his will be independent with sitting and standing posture and be performing the ways to improve it at home independently. 5 weeks: Pt will demonstrate an improvement in LEFS from 69% (26/80) impairment to 35/80 or more to improve function and QOL. 10 weeks: Pt will be able to demonstrate full weightbearing on his R LE with all transfers with his so that they can reduce falls and improve function and QOL. 16 weeks: Pt will be able to ambulate with upright posture with his as compared to ambulating with two people only to improve function and overall QOL. PATIENT'S GOAL: increased R weightbearing with transfers and decrease R knee extension when sitting on the bed Status of Patient's Goals: Progressing Patient Compliance: Good Prognosis: Fair Reasons for continuing therapy: This is a progress note for Ian Goetz. He reports that he is doing well. He reports that he is doing well. He denies any pain. His reports that his blood sugars are doing better. She reports that they are typically around 120 to 140, which she states is much better than it was. She reports that Stanislav continues to have good days and bad days. She states that she would like to continue to pursue the motorized wheelchair so that he would have more independence to go outside and walk the dog when her in the mornings and get him out of the house more. Stanislav continues to demonstrate increased hip flexion tightness due to his sedentary lifestyle that the stroke has placed him into since he does not do much standing and is sitting more than standing or lying down. He has been educated on the importance of performing his daily stretches to prevent some of his anterior hip tightness or even a flexion contracture. He has been unable to progress further than 171 feet without sitting down over the last few weeks; however, if he takes a sitting rest he is able to perform another 171 feet, but unable to do it back to back. Just recently he has demonstrated improvements with standing without any B UE support and weight shifting to his R LE and taking very small steps with his L LE, which is something that he could not do with his last progress note. He continues to maintain his B LE strength and continues to require min to modA X 1 with R weight shifting during ambulation to increase his L LE and he does well until he starts to fatigue. I believe that we are getting close to his full return to function post stroke and will only see him 10 more visits and then discharge from PT as he is starting to plateau with his gains. We will continue to improve transfers, endurance, balance, strength, and gait mechanics. Posture: He demonstrates forward head, increased thoracic kyphosis, decreased lumbar lordosis, and B rounded shoulders. ROM: L UE and L LE: WNL's and demonstrated normal end feel. R UE: 95% limited as compared to his L UE. R LE: 50% limited as compared to his L UE. Strength: L UE: 4+/5 to 5/5. R UE: 1/5 within shoulder, elbow, wrist. R hip flexion, abduction, adduction, extension, R knee flexion and extension (2/5), and R ankle PF/DF: 1/5 (felt contraction). AROM of L hip flexion, abduction, adduction, extension, L knee flexion and extension, and L ankle PF/DF: 4+/5 with no pain. Palpation: TTP: L2-3 central spinous process region Special Tests: LEFS: 26/80: 69% impairment; 5 sit to/from standing took 48 seconds. Mobility: Bed mobility: Sitting to R sidelying Independent. Independent with sitting to L sidelying. Independent from L sidelying to supine position. Independent from supine position to R sidelying position. Independent from supine position to L sidelying position. Independent from L sidelying position to sitting at edge of mat. Able to sit at edge of mat without any difficulties. Calos with stand pivot transfer from wheelchair to/from bench. SBA with sit to/from standing. no assistance required at R knee to prevent increased knee flexion. Physician Signature DATE If you have any questions, please contact me at [phone]. Thank you, Rodolfo Keller, PT, DPT DILIPD
--- NOTE | 2019-03-26 15:07 | SLP PLAN OF CARE ---
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 The pt continues to regularly attend scheduled appointments with no missed visits this reporting period. Spouse provides transportation for all appointments, assists with ADL and IADLs, and is very supportive in providing feedback for functional, therapeutic activities. The pt uses simple verbalizations, gestures, or AAC book to report that he is doing well with no significant pain or concerns. The patient has been working on the following short term goals: 1. The patient will accurately respond to statements and functional questions using a diverse mode of communication (i.e., communication book, speech, gesture, etc.) with 90% accuracy given min assist. 03-26-19: Progressing/maintaining. The pt responds to statements and functional questions using a diverse mode of communication with 90% accuracy when provided with min assist. Pt primarily relies on nonverbal communication during participation in functional conversations (facial expressions, gestures, AAC book). Initiation to request clarification during instances of communicative breakdowns continues to improve. Pt utilizes facial expressions to independently communicate confusion, humor, and gratitude. 2. Pt will utilize 15 gestures to communicate words/ideas without need for assistance. 03-26-19: MET. Pt utilizes an average of 15 gestures in response to leading prompts, routine questions, or conversational pleasantries. Heightened independence has been observed with a more specific emphasis placed on a targeted group of 15, highly relevant, patient-centered gestures. Use of gestures continues to intermittently result in self-cueing for verbal output. Pt benefits from reminders to maintain hand positioning on table to support gestural initiation and to reduce time needed for execution of movement. This strategy has been discussed with the pts spouse. Goal will be maintained for remainder of treatment encounters to encourage maintenance of skills, with ongoing focus placed on increasing independent initiation for gestural communication. 3. Pt will produce accurate articulation of functional, 1-3 word phrases x30 per session with mod verbal/visual assist. 03-26-19: Progressing / maintaining. Pt approximates articulation of functional, 2-3 word phrases with focus on verb+noun or single word (noun) production x30 per session when provided wtih mod or min verbal/visual assist. Pt benefits from access to visual model of verbal production, provision of initial phoneme placement, and provision of lead-in phrasing to improve response automaticity. Pt intermittently perseverates on prior stimuli, but is easily redirected with model for correct articulatory placement. Updated POC: 1. The patient will accurately respond to statements and functional questions using a diverse mode of communication (i.e., communication book, speech, gesture, etc.) with 90% accuracy given min assist. 2. Pt will utilize 20 gestures to communicate words/ideas without need for assistance. (updated 03/26/19) 3. Pt will produce accurate articulation of functional, 1-3 word phrases x30 per session with mod verbal/visual assist. SUMMARY Though steady, small gains have been observed since the start of this patients care, he is beginning to demonstrate a plateau in performance. Prior progress with functional, multimodal communication and motor speech production has resulted in heightened participation in daily decision making, simple conversations, communication of biographical information, and communication of fundamental wants/needs. Discussed plateau in progress in conjunction with the pt and his spouse. Both are in agreement with RN FORENSIC analysis, and plan to discontinue services following participation in 2-3 additional treatment encounters with emphasis placed on family training. RECOMMENDATION In response to the patients progress, it is recommended ST continue services for 2-3 additional treatment encounters to provide family instruction in successful communication strategies for heightened carryover with multimodal communication in home environment. PROGNOSIS: Good. Pt has made small, steady gains toward his goals. Spouse reports motivation to participate in family training sessions prior to end of care. Thank you for referring this patient to [facility] [place], Speech- Language Pathology. Please call [phone] to contact the RN FORENSIC. Kristyn zuñiga M.S., [facility]-RN FORENSIC Physician Signature Date [*] MTDD
--- NOTE | 2019-04-02 14:27 | PT PLAN OF CARE ---
Physician: Nikita Caraballo MD Patient is being seen: 2x/week Therapist: Rodolfo Keller, PT, DPT Medical Diagnosis: strengthening Treatment Diagnosis: same, altered gait, decreased balance, decreased transfers Date of Onset: 08/26/15 Date of Initial Evaluation: 07/17/18 Date patient was last seen: 04/02/19 Number of treatments: 70 Number of cancellations/No shows: 0 INTERVENTIONS: Strengthening/condition Range of Motion Spinal Stabilization Work Hardening/Cond Stretching Neuromuscular Re-ed Closed Chain Program Posture/Body mechanics Gait Trg/Balance Trg Home Exercise Program Therapeutic Activities GOALS: 2 weeks: Pt and his will be independent with sitting and standing posture and be performing the ways to improve it at home independently. 5 weeks: Pt will demonstrate an improvement in LEFS from 69% (26/80) impairment to 35/80 or more to improve function and QOL. 10 weeks: Pt will be able to demonstrate full weightbearing on his R LE with all transfers with his so that they can reduce falls and improve function and QOL. 16 weeks: Pt will be able to ambulate with upright posture with his as compared to ambulating with two people only to improve function and overall QOL. PATIENT'S GOAL: increased R weightbearing with transfers and decrease R knee extension when sitting on the bed Status of Patient's Goals: Progressing Patient Compliance: Good Prognosis: Fair Reasons for continuing therapy: This is a progress note for Ian Goetz. He reports that he is doing well. His reports that the blood sugars are maintaining well. His reports that he is getting harder on her at home due to him waking up so much to go to the bathroom at night. She also reports that they were able to get a motorized scooter that allows him to go outside with her on walks with the dogs, which he seems to really enjoy.Stanislav continues to demonstrate increased hip flexion tightness due to his sedentary lifestyle that the stroke has placed him into since he does not do much standing and is sitting more than standing or lying down. He has been educated on the importance of performing his daily stretches to prevent some of his anterior hip tightness or even a flexion contracture. He has been unable to progress further than 171 feet without sitting down over the last few weeks; however, if he takes a sitting rest he is able to perform another 171 feet, but unable to do it back to back. Just recently he has demonstrated improvements with standing without any B UE support and weight shifting to his R LE and taking very small steps with his L LE, which is something that he could not do with his last progress note. He continues to maintain his B LE strength and continues to require min to modA X 1 with R weight shifting during ambulation to increase his L LE and he does well until he starts to fatigue. e and his were given resources that they could utilize to make things a bit easier at home. Furthermore, he continues to plateu with his function. So moving forward, we are going to address a home exercise program that they could perform before getting up or before going to bed to help maintain his gains for two weeks then we will discharge from PT to HEP. Posture: He demonstrates forward head, increased thoracic kyphosis, decreased lumbar lordosis, and B rounded shoulders. ROM: L UE and L LE: WNL's and demonstrated normal end feel. R UE: 95% limited as compared to his L UE. R LE: 50% limited as compared to his L UE. Strength: L UE: 4+/5 to 5/5. R UE: 1/5 within shoulder, elbow, wrist. R hip flexion, abduction, adduction, extension, R knee flexion and extension (2/5), and R ankle PF/DF: 1/5 (felt contraction). AROM of L hip flexion, abduction, adduction, extension, L knee flexion and extension, and L ankle PF/DF: 4+/5 with no pain. Palpation: TTP: L2-3 central spinous process region Special Tests: LEFS: 26/80: 69% impairment; 5 sit to/from standing took 48 seconds. Mobility: Bed mobility: Sitting to R sidelying Independent. Independent with sitting to L sidelying. Independent from L sidelying to supine position. Independent from supine position to R sidelying position. Independent from supine position to L sidelying position. Independent from L sidelying position to sitting at edge of mat. Able to sit at edge of mat without any difficulties. Calos with stand pivot transfer from wheelchair to/from bench. SBA with sit to/from standing. no assistance required at R knee to prevent increased knee flexion. Physician Signature DATE If you have any questions, please contact me at [phone]. Thank you, Rodolfo Keller, PT, HUMAIRAT JASPREET
--- NOTE | 2019-04-14 10:15 | SLP DISCHARGE NOTE ---
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 He was most recently evaluated by WATCH ASSEMBLER services at [facility] on 07/17/18, and has regularly attended scheduled appointments 2x/week since this time. The patients spouse provides transportation for all appointments, assists with ADL and IADLs, and is very supportive in providing feedback for functional, therapeutic activities. The patient has exhibited steady progress since the start of his care, with improvements noted in receptive language, expressive language, and motor speech production. He is a multimodal communicator, including use of gestures, verbalizations, facial expressions, and a simple AAC system. The patient has been working towards the following short term goals: 1. The patient will accurately respond to statements and functional questions using a diverse mode of communication (i.e., communication book, speech, gesture, etc.) with 90% accuracy given min assist. 04-09-19: MET. The pt responds to statements and functional questions using a diverse mode of communication with 90% accuracy when provided with min assist. Pt primarily relies on nonverbal communication during participation in functional conversations (facial expressions, gestures, AAC book), with intermittent use of single word verbalizations (yes/no) or vocalizations. A comprehensive review of the pts multimodal communication systems was completed with the pt and his spouse prior to discharge. 2. Pt will utilize 20 gestures to communicate words/ideas without need for assistance. 04-09-19: MET. Pt utilizes an average of 15-20 gestures in response to leading prompts, routine questions, or conversational pleasantries. Pt benefits from reminders to maintain hand positioning on table to support gestural initiation and to reduce required time for execution of hand movement. This strategy was discussed the pts spouse, and a comprehensive review of learned gestures was completed with the pt and his spouse prior to discharge. 3. Pt will produce accurate articulation of functional, 1-3 word phrases x30 per session with mod verbal/visual assist. 04-09-19: MET. Pt approximates articulation of functional, 2-3 word phrases with focus on verb+noun or single word (noun) production x30 per session with mod or min verbal/visual assist. Pt benefits from access to visual model of verbal production, provision of initial phoneme placement, and provision of lead-in phrasing to improve response automaticity. Pt intermittently perseverates on prior stimuli, but is easily redirected with model for correct articulatory placement. Provided instruction in cuing hierarchy for apraxia of speech with the pt and his spouse prior to discharge, with specific emphasis placed on integral stimulation, exaggerated articulatory modeling, and provision of initial phoneme cues. Skill has been met/maintained across multiple reporting periods. POC MET on 04/09/19. ST to d/c at this time. SUMMARY Though steady, small gains have been observed since the start of this patients care, he ultimately demonstrated a plateau in performance. The patients progress with multimodal communication and motor speech production has resulted in heightened participation in daily decision making, simple conversations, communication of biographical information, and communication of fundamental wants/needs. The patients spouse participated in final 2-3 treatment sessions to encourage carryover of learned skills into home environment following discontinuation of speech-language pathology services. Thank you for referring this patient to [facility], Speech-Language Pathology. Please call [phone] to contact the WATCH ASSEMBLER with questions or concerns. Respectfully, Kristyn Del Rio M.S., [facility]-WATCH ASSEMBLER Physician Signature Date [*] MTDD
--- NOTE | 2019-04-14 11:56 | PT PLAN OF CARE ---
Physician: Nikita Caraballo MD Patient is being seen: 2x/week Therapist: Rodolfo Keller, PT, DPT Medical Diagnosis: strengthening Treatment Diagnosis: same, altered gait, decreased balance, decreased transfers Date of Onset: 08/26/15 Date of Initial Evaluation: 07/17/18 Date patient was last seen: 04/09/19 Number of treatments: 72 Number of cancellations/No shows: 1 INTERVENTIONS: Strengthening/condition Range of Motion Spinal Stabilization Work Hardening/Cond Stretching Neuromuscular Re-ed Closed Chain Program Posture/Body mechanics Gait Trg/Balance Trg Home Exercise Program Therapeutic Activities GOALS: 2 weeks: Pt and his will be independent with sitting and standing posture and be performing the ways to improve it at home independently. 5 weeks: Pt will demonstrate an improvement in LEFS from 69% (26/80) impairment to 35/80 or more to improve function and QOL. 10 weeks: Pt will be able to demonstrate full weightbearing on his R LE with all transfers with his so that they can reduce falls and improve function and QOL. 16 weeks: Pt will be able to ambulate with upright posture with his as compared to ambulating with two people only to improve function and overall QOL. PATIENT'S GOAL: increased R weightbearing with transfers and decrease R knee extension when sitting on the bed Status of Patient's Goals: Progressing Patient Compliance: Good Prognosis: Fair Reasons for continuing therapy: This is a discharge note for Ian Goetz. He reports that he is doing well. His reports that the blood sugars are maintaining well. His reports that he is getting harder on her at home due to him waking up so much to go to the bathroom at night. She also reports that they were able to get a motorized scooter that allows him to go outside with her on walks with the dogs, which he seems to really enjoy.Stanislav continues to demonstrate increased hip flexion tightness due to his sedentary lifestyle that the stroke has placed him into since he does not do much standing and is sitting more than standing or lying down. He has been educated on the importance of performing his daily stretches to prevent some of his anterior hip tightness or even a flexion contracture. He has been unable to progress further than 171 feet without sitting down over the last few weeks; however, if he takes a sitting rest he is able to perform another 171 feet, but unable to do it back to back. Just recently he has demonstrated improvements with standing without any B UE support and weight shifting to his R LE and taking very small steps with his L LE, which is something that he could not do with his last progress note. He continues to maintain his B LE strength and continues to require min to modA X 1 with R weight shifting during ambulation to increase his L LE and he does well until he starts to fatigue. He and his were given resources that they could utilize to make things a bit easier at home. Furthermore, he continues to plateau with his function. We addressed his home exercise program and they are independent on it; therefore he will be discharged from PT to [facility]. Posture: He demonstrates forward head, increased thoracic kyphosis, decreased lumbar lordosis, and B rounded shoulders. ROM: L UE and L LE: WNL's and demonstrated normal end feel. R UE: 95% limited as compared to his L UE. R LE: 50% limited as compared to his L UE. Strength: L UE: 4+/5 to 5/5. R UE: 1/5 within shoulder, elbow, wrist. R hip flexion, abduction, adduction, extension, R knee flexion and extension (2/5), and R ankle PF/DF: 1/5 (felt contraction). AROM of L hip flexion, abduction, adduction, extension, L knee flexion and extension, and L ankle PF/DF: 4+/5 with no pain. Palpation: TTP: L2-3 central spinous process region Special Tests: LEFS: 26/80: 69% impairment; 5 sit to/from standing took 48 seconds. Mobility: Bed mobility: Sitting to R sidelying Independent. Independent with sitting to L sidelying. Independent from L sidelying to supine position. Independent from supine position to R sidelying position. Independent from supine position to L sidelying position. Independent from L sidelying position to sitting at edge of mat. Able to sit at edge of mat without any difficulties. [place] with stand pivot transfer from wheelchair to/from bench. SBA with sit to/from standing. no assistance required at R knee to prevent increased knee flexion. If you have any questions, please contact me at [phone]. Thank you, Rodolfo Keller, PT, DPT MTDD
== END 2019-04-09 18:00 | disposition home or self-care (01) ==
LOC: PT 11:15
PROVIDERS: ATTEND Family Medicine
DX: I69.320 Aphasia following cerebral infarction (principal); I69.359 Hemiplegia and hemiparesis following cerebral infarction affecting unspecified side; Z99.3 Dependence on wheelchair; R26.89 Other abnormalities of gait and mobility; M54.5 Low back pain